=== PATIENT | female | born 1945 | race Caucasian/White ===

== ENCOUNTER 2016-11-16 15:04 | Emergency (ER) | payer MEDICARE ==
[2016-11-16] MEDS ORDERED: HYDROmorphone* 1 MG/ML 1 ML SYR IV ONE (15:29)
[2016-11-16] MEDS ORDERED: Metoclopramide IV* 5 MG/ML 2 ML VIAL IV ONE (15:29)
[2016-11-16] MEDS: NS 0.9% 1000 ML* 3,000 ML IV ONE ×2 (15:39→15:53)
[2016-11-16 16:22] LABS: Hematocrit 37 % (35-47); Hemoglobin 12.1 g/dl (12.0-16.0); Mean Corpuscular HGB Conc 33 g/dl (31-36); Mean Corpuscular Hemoglobin 33 pg (27-31); Mean Corpuscular Volume 102 fL (80-97); Mean Platelet Volume 8 um3 (7.4-10.4); Red Blood Count 3.64 10^6/ul (4.0-5.4); Red Cell Distribution Width 15 % (10.5-15); White Blood Count 7.3 10^3/ul (3.5-10.8)
[2016-11-16 16:32] LABS: ALT 6 U/L (7-52); AST 13 U/L (13-39); Albumin 3.5 g/dL (3.2-5.2); Alkaline Phosphatase 70 U/L (34-104); Amylase 20 U/L (29-103); Anion Gap 6 mmol/L (2-11); BUN/Creatinine Ratio 14.6 (8-20); Blood Urea Nitrogen 15 mg/dL (6-24); C Reactive Protein < 1.00 mg/L (< 5.00); CO2 Carbon Dioxide 26 mmol/L (22-32); Calcium 8.7 mg/dL (8.6-10.3); Chloride 105 mmol/L (101-111); EGFR African American 67.7 (>60); EGFR Non-African American 52.7 (>60); Globulin 2.5 g/dL (2-4); Glucose 81 mg/dL (70-100); Lipase < 10 U/L (11.0-82.0); Potassium 3.9 mmol/L (3.5-5.0); Sodium 137 mmol/L (133-145)
[2016-11-16] MEDS ORDERED: Iodixanol* (CONTRAST) 320 MG/ML 100 ML SDV IV ONE (16:45)
--- NOTE | 2016-11-16 18:15 | RAD ---
INDICATION: Abdominal pain, nausea, no bowel movement. Question small bowel obstruction, colitis, gallbladder pathology. History of colon carcinoma. Recent chemotherapy. COMPARISON: April 19, 2016 CT. TECHNIQUE: Multidetector CT images were obtained from the lung bases to the ischial tuberosities with 100 mL Visipaque 320 IV and oral contrast. Multiplanar reformation. REPORT: Mild bibasilar subsegmental atelectasis. Coronary artery calcifications. Normal size liver with decreased density consistent with fatty infiltration. No focal hepatic lesions or biliary dilatation. Unremarkable gallbladder. Moderately advanced atrophy of the pancreas without suspicious finding. Unremarkable spleen. Negative for CT abnormality of the upper GI or small bowel. Postsurgical change of RIGHT hemicolectomy. Negative for bowel obstruction. Residual colon is remarkable for a moderate volume of formed stool. Negative for significant rectal distention. Minimal ascites. Negative for free air or hernias. Normal adrenal glands. Symmetric nephrograms and pyelograms. Unchanged 1.7 x 1.3 cm cortical lesion at the midpole of the RIGHT kidney with peripheral calcification. Negative for hydronephrosis. Unremarkable ureters and partially distended urinary bladder. Multiple new soft tissue density implants are visualized within the abdominal fat primarily at the RIGHT anterior abdomen at the mesentery, greater omentum, and prehepatic fat. Negative for retroperitoneal lymphadenopathy. Peripheral vascular disease with infrarenal aorta to LEFT common femoral patent bypass graft as well as patent aorta to RIGHT common femoral bypass graft which follows the course of the LEFT graft to the lower anterior pelvis and extends across the midline. Physiologic partial distention of the IVC. Negative for suspicious osseous lesions. IMPRESSION: 1. Post RIGHT hemicolectomy. No evidence for bowel obstruction. 2. 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 3. Minimal ascites. 4. Fatty infiltration of the liver. No focal hepatic lesions evident. 5. Peripheral vascular disease with patent infrarenal abdominal aorta to bilateral common femoral artery bypass.
[2016-11-16 19:41] VITALS: BP 135/71
--- NOTE | 2016-11-16 20:56 | ED ---
I, Oh,Sozane, scribed for Yaniv David MD on 11/16/16 at 1525 . Abdominal Pain/Female - HPI Summary HPI Summary: This 71 y/o female presents to ED for gradually worsening diffuse abd pain since 1 week ago. Pt also reports constipation, nausea, abd bloating, and increased belching/flatulance. Negative fever/chills. Nausea is worse with food PO. PMHx is significant for colon CA s/p recent chemotherapy that was completed 3 weeks ago. She has pending f/u appointment tomorrow. Other PMHx includes SBO. Former smoker and occasional drinker. - History of Current Complaint Stated Complaint: ABD PIAN Time Seen by Provider: 11/16/16 15:11 Hx Obtained From: Patient ?: No Timing: Constant Location: Diffuse Radiates: No Allergies/Adverse Reactions: Allergies Allergy/AdvReac Type Severity Reaction Status Date / Time Adhesive Tape Allergy Rash Verified 05/26/16 10:14 PMH/Surg Hx/FS Hx/Imm Hx Endocrine/Hematology History: Reports: Hx Thyroid Disease Cardiovascular History: Reports: Hx Hypercholesterolemia, Hx Hypertension - ON MEDS, Hx Myocardial Infarction, Other Cardiovascular Problems/Disorders - 2015, AORTIC BYPASS GI History: Reports: Hx Gastroesophageal Reflux Disease, Other GI Disorders - COLON CANCER Musculoskeletal History: Reports: Hx Back Problems Sensory History: Reports: Hx Contacts or Glasses - GLASSES Denies: Hx Hearing Aid Opthamlomology History: Reports: Hx Contacts or Glasses - GLASSES - Cancer History Hx Chemotherapy: Yes - STARTING 05/27/16 - Surgical History Surgery Procedure, Year, and Place: ABDOMINAL ANEURYSM 2014. AORTIC VALVE REPLACEMENT 2015. 2016, COLON TUMOR, CMCM Hx Anesthesia Reactions: No Infectious Disease History: Denies: Traveled Outside the [place] in Last 30 Days - Family History Known Family History: Positive: Hypertension - Social History Alcohol Use: Rare Substance Use Type: Reports: None Smoking Status (MU): Former Smoker Amount Used/How Often: PACK A DAY Review of Systems Positive: Sore Throat - mild. Negative: Nasal Discharge Negative: Chest Pain Negative: Shortness Of Breath Positive: Abdominal Pain, Nausea, Other - constipation All Other Systems Reviewed And Are Negative: Yes Physical Exam - Summary Physical Exam Summary: The patient is well-nourished in no acute distress and in no acute pain. The skin is warm and skin color reflects adequate perfusion. Decreased turgor. HEENT: The head is normocephalic and atraumatic. The pupils are equal and reactive. The conjunctivae are clear and without drainage. Nares are patent and without drainage. Mouth reveals dry mucous membranes and the throat is without erythema and exudate. The external ears are intact. The ear canals are patent and without drainage. The tympanic membranes are intact. Neck is supple with full range of motion and non-tender. There are no carotid bruits. There is no neck vein distension. Respiratory: Chest is non-tender. Lungs are clear to auscultation and breath sounds are symmetrical and equal. Cardiovascular: Hear is regular rate and rhythm. There is no murmur or rub auscultated. There is no peripheral edema and pulses are symmetrical and equal. Abdomen: RUQ and transverse tenderness. Negative tenderness at lower quadrants. There are normal bowel sounds heard in all four quadrants and there is no organomegaly palpated. Musculoskeletal: There is no back pain noted. Extremities are non-tender with full range of motion. There is good capillary refill 2 seconds . There is no peripheral edema or calf tenderness elicited. Neurological: Patient is alert and oriented to person, place and time. The patient has symmetrical motor strength in all four extremities. Cranial nerves are grossly intact. Deep tendon reflexes are symmetrical and equal in all four extremities. Psychiatric: The patient is depressed. Triage Information Reviewed: Yes Vital Signs On Initial Exam: Initial Vitals Temp Pulse Resp BP Pulse Ox 97.3 F 57 16 146/71 98 11/16/16 15:18 11/16/16 15:18 11/16/16 15:18 11/16/16 15:18 11/16/16 15:18 Vital Signs Reviewed: Yes Diagnostics - Vital Signs Vital Signs Temp Pulse Resp BP Pulse Ox 11/16/16 19:35 60 12 135/71 11/16/16 19:30 58 11 135/71 96 11/16/16 19:27 58 12 149/67 97 11/16/16 19:00 57 15 97 11/16/16 18:00 55 12 98 11/16/16 17:30 51 12 131/64 96 11/16/16 17:19 53 14 149/62 98 11/16/16 17:00 52 12 144/75 95 11/16/16 16:30 51 9 141/66 99 11/16/16 16:00 57 11 123/68 96 11/16/16 15:45 18 11/16/16 15:34 57 98 11/16/16 15:33 146/71 11/16/16 15:18 97.3 F 57 16 146/71 98 - Laboratory Lab Results: Lab Results 11/16/16 11/16/16 11/16/16 Range/Units 16:08 16:08 16:08 WBC 7.3 (3.5-10.8) 10^3/ul RBC 3.64 L (4.0-5.4) 10^6/ul Hgb 12.1 (12.0-16.0) g/dl Hct 37 (35-47) % MCV 102 H (80-97) fL MCH 33 H (27-31) pg MCHC 33 (31-36) g/dl RDW 15 (10.5-15) % Plt Count 208 (150-450) 10^3/ul MPV 8 (7.4-10.4) um3 Neut % (Auto) 54.0 (38-83) % Lymph % (Auto) 34.0 (25-47) % [place] % (Auto) 7.7 (1-9) % Eos % (Auto) 3.3 (0-6) % Baso % (Auto) 1.0 (0-2) % Absolute Neuts (auto) 3.9 (1.5-7.7) 10^3/ul Absolute Lymphs (auto) 2.5 (1.0-4.8) 10^3/ul Absolute Monos (auto) 0.6 (0-0.8) 10^3/ul Absolute Eos (auto) 0.2 (0-0.6) 10^3/ul Absolute Basos (auto) 0.1 (0-0.2) 10^3/ul Absolute Nucleated RBC 0 10^3/ul Nucleated RBC % 0 Sodium 137 (133-145) mmol/L Potassium 3.9 (3.5-5.0) mmol/L Chloride 105 (101-111) mmol/L Carbon Dioxide 26 (22-32) mmol/L Anion Gap 6 (2-11) mmol/L BUN 15 (6-24) mg/dL Creatinine 1.03 H (0.51-0.95) mg/dL Est GFR ( Amer) 67.7 (>60) Est GFR (Non-Af Amer) 52.7 (>60) BUN/Creatinine Ratio 14.6 (8-20) Glucose 81 (70-100) mg/dL Lactic Acid 1.2 (0.5-2.0) mmol/L Calcium 8.7 (8.6-10.3) mg/dL Total Bilirubin 0.50 (0.2-1.0) mg/dL AST 13 (13-39) U/L ALT 6 L (7-52) U/L Alkaline Phosphatase 70 (34-104) U/L C-Reactive Protein < 1.00 (< 5.00) mg/L Total Protein 6.0 L (6.4-8.9) g/dL Albumin 3.5 (3.2-5.2) g/dL Globulin 2.5 (2-4) g/dL Albumin/Globulin Ratio 1.4 (1-3) Amylase 20 L (29-103) U/L Lipase < 10 L (11.0-82.0) U/L Result Diagrams: 11/16/16 16:08 11/16/16 16:08 Lab Statement: Any lab studies that have been ordered have been reviewed, and results considered in the medical decision making process. - CT Ab/P CT Interpretation: Positive (See Comments) - 1. Post RIGHT hemicolectomy. No evidence for bowel obstruction. 2. 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 3. Minimal ascites. 4. Fatty infiltration of the liver. No focal hepatic lesions evident. 5. Peripheral vascular disease with patent infrarenal abdominal aorta to bilateral common femoral artery bypass. CT Interpretation Completed By: Radiologist Re-Evaluation - Re-Evaluation First Eval Re-Evaluation Time: 19:13 Comment: Dr. David in room to update pt on CT Ab/P imaging results and blood work. Hard copies of imaging results and bloodwork are shared with pt and family members. Abdominal Pain Fem Course/Dx - Course Course Of Treatment: This 71 y/o female presents to ED for abd pain and nausea since a week ago. PMHx is significant for colon CA s/p surgery and chemotherapy QOW 3 weeks ago. Pt states that her medications failed to alleviate her nausea and abd discomfort. Bloodwork was wnl except creatinine of 1.03. 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 Pt was discharged with outpatient f/u with Dr. Yao as scheduled tomorrow. - Diagnoses Differential Diagnosis: Positive: Appendicitis, Bowel Obstruction, Other - metastatic colon cancer Provider Diagnoses: Metastatic cancer - Provider Notifications Discussed Care Of Patient With: Dr. Allison (Radiologist) at 1838 PM Discharge - Discharge Plan Condition: Stable Disposition: HOME Patient Education Materials: Abdominal Pain (ED) Referrals: Konrad Grimaldo MD [Primary Care Provider] - 2 Days Vivien Yao MD [Medical Doctor] - 11/17/16 The documentation as recorded by the Chaka ryder Soohyun accurately reflects the service I personally performed and the decisions made by , Yaniv David MD.
[2016-11-17 12:17] LABS: Carcinoembryonic Antigen 6.4 ng/mL (0.1-5.0)
== END 2016-11-16 19:35 | disposition home or self-care (01) ==
LOC: ED 15:04
DX: R10.9 Unspecified abdominal pain (principal); J02.9 Acute pharyngitis, unspecified; Z87.891 Personal history of nicotine dependence; C18.9 Malignant neoplasm of colon, unspecified
CPT/HCPCS: 36415; 74177; 80053; 82150; 82378; 83605; 83690; 85025; 86140; 99284; J1170; Q9967

== ENCOUNTER 2016-11-21 19:51 | Inpatient (IN) | payer MEDICARE ==
[2016-11-21] MEDS ORDERED: NS 0.9% 1000 ML* 1,000 ML IV ONE (20:28)
[2016-11-21] MEDS ORDERED: Morphine INJ* 4 MG/ML 1 ML SYRINGE IV ONE ×2 (20:28→23:18)
[2016-11-21] MEDS ORDERED: Ondansetron INJ* 2 MG/ML VIAL IV ONE (20:28)
[2016-11-21 20:48] LABS: Hematocrit 39 % (35-47); Hemoglobin 12.5 g/dl (12.0-16.0); Mean Corpuscular HGB Conc 33 g/dl (31-36); Mean Corpuscular Hemoglobin 33 pg (27-31); Mean Corpuscular Volume 101 fL (80-97); Mean Platelet Volume 7 um3 (7.4-10.4); Red Blood Count 3.83 10^6/ul (4.0-5.4); Red Cell Distribution Width 15 % (10.5-15); White Blood Count 8.5 10^3/ul (3.5-10.8)
--- NOTE | 2016-11-21 21:07 | RAD ---
HISTORY: Abdominal pain COMPARISONS: PET CT dated November 18, 2016 VIEWS: Frontal views of the abdomen. FINDINGS: BOWEL: There is a nonspecific bowel gas pattern, with nondilated small bowel gas noted. There is post surgical change to the upper abdomen. Oral contrast is noted within the colon CALCULI: Surgical clips are noted in the abdomen. BONES AND SOFT TISSUES: Degenerative changes are noted along the spine OTHER FINDINGS: The lung bases are clear. There is no subphrenic gas. IMPRESSION: NONSPECIFIC BOWEL GAS PATTERN. ORAL CONTRAST IS NOTED WITHIN THE COLON
[2016-11-21 21:08] LABS: Albumin 3.8 g/dL (3.2-5.2); BUN/Creatinine Ratio 17.5 (8-20); Calcium 9.2 mg/dL (8.6-10.3); EGFR African American 72.6 (>60); EGFR Non-African American 56.5 (>60); Potassium 3.8 mmol/L (3.5-5.0); Total Bilirubin 0.6 mg/dL (0.2-1.0); Total Protein 6.8 g/dL (6.4-8.9)
--- NOTE | 2016-11-21 21:09 | RAD ---
HISTORY: Abdominal pain COMPARISONS: Chest x-ray dated May 26, 2016 VIEWS:1: Single frontal portable view of the chest at 8:40 PM FINDINGS: LINES AND TUBES: A left-sided chest port is noted from a subclavian approach with the tip overlying the superior vena cava. CARDIOMEDIASTINAL SILHOUETTE: The cardiomediastinal silhouette is normal for portable technique. PLEURA: The costophrenic angles are sharp. No pleural abnormalities are noted. LUNG PARENCHYMA: The lung volumes are low. The lungs are clear accounting for the phase of respiration. ABDOMEN: The upper abdomen is clear. There is no subphrenic gas. BONES AND SOFT TISSUES: No bone or soft tissue abnormalities are noted. IMPRESSION: LOW LUNG VOLUMES. NO ACTIVE CARDIOPULMONARY DISEASE.
[2016-11-21] MEDS ORDERED: Iodixanol* (CONTRAST) 320 MG/ML 100 ML SDV IV ONE (22:36)
--- NOTE | 2016-11-22 00:49 | ED ---
Maude Cotnreras Rebecca, scribed for LanaannelSingh on 11/21/16 at 2011 . Shortness of Breath - HPI Summary HPI Summary: Pt is a 71 y/o F BIBA who presents to ED c/o SOB. SOB began suddenly today at 1100 during BM. Sx characterized as mild dyspnea at exertion and has been constant since onset. Sx aggravated by movement, alleviated by nothing. Additionally c/o severe epigastric abdominal pain, currently ranked 8/10. Pain is worse on the R side and also aggravated by movement. Denies fever, edema, chest pain. Hx colorectal CA. Last chemotherapy treatment 4 weeks ago, was intended to be the last treatment. Recent evaluation by oncologist resulted in "rediagnosis" with a biopsy scheduled for Thursday (4 days). - History of Current Complaint Chief Complaint: EDShortnessOfBreath Time Seen by Provider: 11/21/16 20:09 Hx Obtained From: Patient Onset/Duration: Sudden Onset Timing: Intermittent Episodes Lasting: Current Severity: Mild Dyspnea At: Exertion Aggrevating Factors: Movement Alleviating Factors: Nothing - Allergy/Home Medications Allergies/Adverse Reactions: Allergies Allergy/AdvReac Type Severity Reaction Status Date / Time Adhesive Tape Allergy Rash Verified 05/26/16 10:14 Home Medications: Home Medications oxyCODONE TAB* [Roxycodone TAB 5 mg*] 10 mg PO Q4H PRN MDD 6 tablets 11/22/16 [ History Confirmed 11/22/16] PMH/Surg Hx/FS Hx/Imm Hx Endocrine/Hematology History: Reports: Hx Thyroid Disease Cardiovascular History: Reports: Hx Hypercholesterolemia, Hx Hypertension - ON MEDS, Hx Myocardial Infarction, Other Cardiovascular Problems/Disorders - 2015, AORTIC BYPASS GI History: Reports: Hx Gastroesophageal Reflux Disease, Other GI Disorders - COLON CANCER Musculoskeletal History: Reports: Hx Back Problems Sensory History: Reports: Hx Contacts or Glasses - GLASSES Denies: Hx Hearing Aid Opthamlomology History: Reports: Hx Contacts or Glasses - GLASSES - Cancer History Cancer Type, Location and Year: colon Hx Chemotherapy: Yes - STARTING 05/27/16 - Surgical History Surgery Procedure, Year, and Place: ABDOMINAL ANEURYSM 2015. AORTIC VALVE REPLACEMENT 2015. 2016, COLON TUMOR, CMCM Hx Anesthesia Reactions: No - Family History Known Family History: Positive: Hypertension - Social History Alcohol Use: Rare Substance Use Type: Reports: None Smoking Status (MU): Former Smoker Amount Used/How Often: PACK A DAY Review of Systems Negative: Fever Negative: Chest Pain Positive: Shortness Of Breath - dyspnea at exertion Positive: Abdominal Pain - severe epigastric Negative: Edema All Other Systems Reviewed And Are Negative: Yes Physical Exam Triage Information Reviewed: Yes Vital Signs Reviewed: Yes Appearance: Positive: Well-Appearing, No Pain Distress Skin: Positive: Warm, Skin Color Reflects Adequate Perfusion, Dry Head/Face: Positive: Normal Head/Face Inspection Eyes: Positive: EOMI, NUNU ENT: Positive: Normal ENT inspection Neck: Positive: Supple, Nontender Respiratory/Lung Sounds: Positive: Clear to Auscultation, Decreased Breath Sounds - Diminished breath sounds on the R side Cardiovascular: Positive: RRR, Pulses are Symmetrical in both Upper and Lower Extremities Abdomen Description: Positive: Soft. Negative: Nontender - RUQ and epigastric tenderness Bowel Sounds: Positive: Present Musculoskeletal: Positive: Normal, Strength/ROM Intact Neurological: Positive: Normal, Sensory/Motor Intact, Alert, Oriented to Person Place, Time Diagnostics - Laboratory Result Diagrams: 11/21/16 20:40 11/21/16 20:40 Lab Statement: Any lab studies that have been ordered have been reviewed, and results considered in the medical decision making process. - Radiology Abd XR/KUB Radiology Interpretation Completed By: Radiologist - NONSPECIFIC BOWEL GAS PATTERN. ORAL CONTRAST IS NOTED WITHIN THE COLON CXR Radiology Interpretation Completed By: Radiologist - CT CTA Chest CT Interpretation Completed By: Radiologist - EKG 2028 Cardiac Rate: NL - 67 bpm EKG Rhythm: Sinus Rhythm ST Segment: Non-Specific - Non-Specific ST changes EKG Interpretation: QS in the inferior leads Re-Evaluation - Re-Evaluation First Eval Re-Evaluation Time: 00:30 Change: Unchanged Comment: Pt continues to complain of abdominal pain. Course/Dx - Course Assessment/Plan: Pt comes to ED with abdominal pain and SOB. Labs, CXR and Abd XR were performed. Showed elevated D-Dimer. CTA of chest was done with no acute findings. Pt still c/o abdominal pain, so she will be admitted for observation with a Dx of intractable abdominal pain. - Diagnoses Provider Diagnoses: Intractable abdominal pain - Physician Notifications Discussed Care of Patient With: Dr. Mario, hospitalist, who accepts pt for admission. Time Discussed With Above Provider: 00:37 Discharge - Discharge Plan Condition: Good Disposition: ADMITTED TO [facility] Referrals: Konrad Grimaldo MD [Primary Care Provider] - The documentation as recorded by the Maude ryder Rebecca accurately reflects the service I personally performed and the decisions made by , Singh Lind.
[2016-11-22] MEDS ORDERED: tiZANidine TAB* 2 MG PO PRN (01:27)
[2016-11-22] MEDS ORDERED: NALOXEGOL OXALATE 25 MG PO PRN (01:27)
[2016-11-22] MEDS ORDERED: oxyCODONE TAB* 5 MG TAB PO PRN (01:27)
[2016-11-22] MEDS ORDERED: Docusate CAP* 100 MG PO PRN (01:29)
[2016-11-22] MEDS ORDERED: Morphine TAB Extended Release (*) 15 MG TAB.ER PO SCH (02:00)
[2016-11-22] MEDS: Morphine INJ* 2 MG/ML 1 ML SYRINGE IV PRN ×4 (02:08→20:34)
[2016-11-22] MEDS: Enoxaparin(*) 40 MG/0.4 ML SYR SUBCUT SCH (02:51)
[2016-11-22] MEDS: Levothyroxine TAB* 125 MCG TAB PO SCH (05:33)
--- NOTE | 2016-11-22 08:04 | PN ---
Progress Note - Progress Note SOAP: Subjective: pt well known to me. newly discovered likely omental implants. not visible on abd US so plan for CT guided bx on Thursday. last Thursday I increased her oxycodone to 20 mg po q4 hrs. She has been taking this more like every 3 hours just to keep the pain manageable. wearing an abdominal binder because it hurts to move. +constipation. yesterday evening was straining to have a bowel movement and the pain became unbearable. she developed SOB, more from pain than anything. She went to the ER via ambulance. CTA prelim read negative. IV morphine helping but still very painful if she moves at all. Objective: Vital Signs Temp Pulse Resp BP Pulse Ox 97.8 F 65 18 134/69 98 11/22/16 03:09 11/22/16 03:09 11/22/16 04:49 11/22/16 03:09 11/22/16 03:09 sitting up, uncomfortable appearing perr eomi op dry CTA bl distended, tender, RUQ mostly, +bs no le edema A+O x 3, nonfocal neurological exam skin intact port site intact (not accessed) Laboratory Results - last 24 hr 11/21/16 11/21/16 11/21/16 20:40 20:40 20:40 WBC 8.5 RBC 3.83 L Hgb 12.5 Hct 39 MCV 101 H MCH 33 H MCHC 33 RDW 15 Plt Count 285 MPV 7 L Neut % (Auto) 68.3 Lymph % (Auto) 21.4 L [place] % (Auto) 6.8 Eos % (Auto) 2.4 Baso % (Auto) 1.1 Absolute Neuts (auto) 5.8 Absolute Lymphs (auto) 1.8 Absolute Monos (auto) 0.6 Absolute Eos (auto) 0.2 Absolute Basos (auto) 0.1 Absolute Nucleated RBC 0.01 Nucleated RBC % 0.1 INR (Anticoag Therapy) 0.92 APTT 25.0 L D-Dimer, Quantitative > 1050 H Sodium 136 Potassium 3.8 Chloride 103 Carbon Dioxide 24 Anion Gap 9 BUN 17 Creatinine 0.97 H Est GFR ( Amer) 72.6 Est GFR (Non-Af Amer) 56.5 BUN/Creatinine Ratio 17.5 Glucose 86 Lactic Acid Calcium 9.2 Total Bilirubin 0.60 AST 17 ALT 7 Alkaline Phosphatase 83 Troponin I 0.00 Total Protein 6.8 Albumin 3.8 Globulin 3.0 Albumin/Globulin Ratio 1.3 Lipase 18 11/21/16 20:40 WBC RBC Hgb Hct MCV MCH MCHC RDW Plt Count MPV Neut % (Auto) Lymph % (Auto) [place] % (Auto) Eos % (Auto) Baso % (Auto) Absolute Neuts (auto) Absolute Lymphs (auto) Absolute Monos (auto) Absolute Eos (auto) Absolute Basos (auto) Absolute Nucleated RBC Nucleated RBC % INR (Anticoag Therapy) APTT D-Dimer, Quantitative Sodium Potassium Chloride Carbon Dioxide Anion Gap BUN Creatinine Est GFR ( Amer) Est GFR (Non-Af Amer) BUN/Creatinine Ratio Glucose Lactic Acid 1.4 Calcium Total Bilirubin AST ALT Alkaline Phosphatase Troponin I Total Protein Albumin Globulin Albumin/Globulin Ratio Lipase Atenolol (Tenormin Tab*) 25 mg PO BEDTIME ON LICENSE OF [facility] Atorvastatin Calcium (Lipitor*) 40 mg PO 2100 ON LICENSE OF [facility] Docusate Sodium (Colace Cap*) 100 mg PO BID PRN PRN Reason: CONSTIPATION Enoxaparin Sodium (Lovenox(*)) 40 mg SUBCUT Q24H ON LICENSE OF [facility] Last Admin: 11/22/16 02:51 Dose: 40 mg Fentanyl (Duragesic Patch 50 Mcg/Hr*) 50 mcg TRANSDERM Q72H ON LICENSE OF [facility] Levothyroxine Sodium (Synthroid Tab*) 125 mcg PO 0600 ON LICENSE OF [facility] Last Admin: 11/22/16 05:33 Dose: 125 mcg Morphine Sulfate (Morphine Inj (Syringe)*) 4 mg IV Q3H PRN PRN Reason: PAIN Last Admin: 11/22/16 02:08 Dose: 4 mg Non-Formulary Medication (Naloxegol Oxalate [Movantik]) 25 mg PO DAILY PRN PRN Reason: CONSTIPATION Omeprazole (Prilosec Cap*) 20 mg PO DAILY PRN PRN Reason: INDIGESTION Ondansetron HCl (Zofran Inj*) 4 mg IV Q6H PRN PRN Reason: NAUSEA Oxybutynin Chloride (Ditropan Xl Tab*) 15 mg PO DAILY ON LICENSE OF [facility] Oxycodone HCl (Roxycodone Tab*) 20 mg PO Q4H PRN PRN Reason: PAIN Tizanidine HCl (Zanaflex Tab*) 4 mg PO BID PRN PRN Reason: muscle relax Assessment: 71 yo F w stage III CRC with likely recent recurrence, awaiting confirmation biopsy, presenting with acute exacerbation of abdominal pain. She has omental caking and slow bowel movements and is likely having pain from this. She has been taking at least 20 mg of oxycodone every 3-4 hours (relatively opiate naive prior to this) for the last 2 weeks and so I will start a fentanyl patch at 50 mcg. I will also place her on a low residue diet and an aggressive bowel regimen. If she is still here on Thursday I will see if we can move her biopsy up. Plan: -start fentanyl 50 mcg q72 hrs -cont PRN IV morphine -cont oxycodone 20 mg po q4 hrs prn -BRAT diet -bowel regimen lovenox DVT prophylaxis DNR
[2016-11-22] MEDS: NALOXEGOL OXALATE 25 MG PO SCH (08:10)
[2016-11-22] MEDS: Lidocaine 2.5%/Prilocain 2.5%* 5 GM TUBE TOPICAL PRN (08:21)
[2016-11-22] MEDS: fentaNYL PATCH 50 MCG/HR TRANSDERM SCH (08:23)
[2016-11-22] MEDS: Oxybutynin XL TAB* 5 MG PO SCH (08:28)
[2016-11-22] MEDS ORDERED: Aspirin EC Low Dose* 81 MG TAB.EC PO SCH (09:00)
--- NOTE | 2016-11-22 09:11 | RAD ---
INDICATION: Shortness of breath and nausea in a patient with metastatic colorectal carcinoma. COMPARISON: Most recent comparison CT of the chest is dated April 19, 2016 TECHNIQUE: Axial source images were acquired following the administration of 85 mL Visipaque [address] angiographic technique. Coronal and sagittal reconstructed images were constructed and reviewed. FINDINGS: There there are no filling defects in the pulmonary arteries to indicate acute pulmonary embolic disease. In the anterolateral aspect of the right upper lobe there is a 2 mm subpleural nodule. The lungs exhibit very mild groundglass opacification diffusely. There is pleural-based linear density at the right lung base. There is a small right pleural effusion. The pneumonia seen on the April 19, 2016 CT of the chest has resolved. The heart is normal in size. There is no evidence of pericardial effusion. There is no evidence of aortic aneurysm or dissection. There is a left subclavian vein Mediport that appears to have retracted slightly since its previous instillation with the tip now terminating at the superior vena cava at the same level as the junction with the left brachiocephalic vein. There is no mediastinal, hilar, or axillary lymphadenopathy. Degenerative changes of the thoracic spine include loss of intervertebral disc height at multiple levels. There are no sinister bone lesions. There is a small amount of perihepatic fluid. IMPRESSION: 1. No CT of evidence of pulmonary embolism. 2. Interval appearance of small right upper and middle lobe pulmonary nodules that do not exceed 4 mm. Infectious/inflammatory nodules are possible, but it is clinical setting metastatic foci must be considered.
[2016-11-22] MEDS: Docusate CAP* 100 MG PO SCH ×2 (09:51→20:33)
[2016-11-22] MEDS: Ondansetron INJ* 2 MG/ML VIAL IV PRN ×2 (14:36→20:34)
[2016-11-22] MEDS: Simethicone CHEW TAB* 80 MG PO PRN ×2 (14:36→19:17)
[2016-11-22] MEDS: Omeprazole CAP* 20 MG PO PRN (14:36)
[2016-11-22] MEDS: fentaNYL Patch Check Q Shift 1 NOTE SCH (18:56)
[2016-11-22] MEDS: Atenolol TAB* 25 MG PO SCH (20:33)
[2016-11-22] MEDS: Atorvastatin* 40 MG TAB PO SCH (20:33)
--- NOTE | 2016-11-22 22:30 | HP ---
CC: Dr. Grimaldo; Dr. Yao ADMISSION HISTORY AND PHYSICAL: DATE OF ADMISSION: 11/22/16 CHIEF COMPLAINT: Abdominal pain. HISTORY OF PRESENT ILLNESS: Ms. Gordillo is a 71-year-old woman with metastatic colon cancer, who reports 4 weeks of epigastric and right upper quadrant pain that has been investigated and attributed to progression of colon cancer. The patient reports that in the last 5 days, the pain has become more severe and intractable. It is worse in the right upper quadrant but radiates along the way across in the band to the left upper quadrant. She was seen about this in the emergency department about 5 days ago and also has seen Dr. Yoa about this. She reports she was started on oxycodone 10 mg as needed for pain, but this has not been helpful with pain. She has been constipated in the last few weeks, but has had a bowel movement the morning before admission. The colon cancer was recently diagnosed 6 months ago and led to her colectomy. She has been on chemotherapy, but last chemo dose was 4 weeks ago and she was told that she has an aggressive recurrence. There is a biopsy planned in 3 days , unclear to me what they biopsy, potentially a liver lesion. She had abdominal and pelvis CT on November 16 that showed omental and mesenteric metastatic disease as well as fatty infiltration of the liver with minimal ascites. PAST MEDICAL HISTORY: Includes hypothyroidism, coronary artery disease versus takotsubo syndrome. She reports a history of OR at age 27 when under emotional stress. She has hypertension, peripheral vascular disease, history of aortic aneurysm and has chronic low back pain. PAST SURGICAL HISTORY: Total abdominal hysterectomy, aortobifem with AAA repair in January 2015 up in [place] at [facility]. MEDICATIONS ON ADMISSION: 1. Aspirin 81 mg p.o. daily. 2. Atenolol 25 mg p.o. q.p.m. 3. Atorvastatin 40 mg p.o. q.p.m. 4. Nexium 40 mg p.o. daily. 5. Levothyroxine 125 mcg p.o. daily. 6. Movantik 25 mg p.o. daily. 7. Ondansetron as needed for nausea. 8. Oxybutynin 15 mg p.o. daily. 9. Tizanidine 4 mg p.o. b.i.d. p.r.n. 10. Oxycodone 10 mg p.o. q.4 hours p.r.n. ALLERGIES: ADHESIVE TAPE. FAMILY HISTORY: Notable for father who of myocardial infarction. Mother of a gynecological cancer. 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 She is . She has 2 children. Her healthcare proxy is her son Alex. She quit tobacco in the distant past, she does not remember when. She drinks wine occasionally. No recreational drugs. REVIEW OF SYSTEMS: The patient reports decreased appetite. She denies any fevers or weight loss. The patient denies any chest pain or palpitations. The patient denies any cough or shortness of breath. The patient reports nausea, but no diarrhea. Remainder of a 14-point review of systems is negative other than that mentioned in the HPI. PHYSICAL EXAMINATION GENERAL: She is alert, no acute distress. VITAL SIGNS: Temperature is 36.4, pulse 66, respirations 20, blood pressure is 141/71, oxygen saturation is 93%. HEENT: Head is normocephalic, atraumatic. Sclerae anicteric. Pupils are equal , round, and reactive to light and accommodation. Oropharynx is moist. No lesions. NECK: No JVD. No carotid bruit. No thyromegaly. LUNGS: Clear to auscultation and percussion bilaterally. HEART: Regular rate and rhythm without murmurs or gallops. ABDOMEN: Tender in the right upper quadrant and left upper quadrant to lesser extend. There are no masses palpated. There is positive but rare bowel sounds in all 4 quadrants. EXTREMITIES: No peripheral edema. Dorsalis pedis pulses are absent. Posterior tibial pulses are absent bilaterally. NEUROLOGIC: Cranial nerves II through XII are intact. Motor strength is 5/5 throughout. Deep tendon reflexes are symmetric. LABORATORY DATA: Sodium 136, potassium 3.8, chloride 103, bicarb 24, BUN 17, creatinine 0.97, glucose 86, calcium 9.2. Lactic acid 1.4. Troponin 0.00. Lipase 18. INR 0.92, PTT 25. D-dimer is greater than 1000. White count 8.5, hemoglobin 12.5, hematocrit 39%, platelets are 285. EKG, normal sinus rhythm, normal axis, Q waves in leads V1 through V3 and lead III are new compared with 2015. Chest x-ray, no infiltrate or effusion. Abdominal x-ray negative for obstruction. Chest CT shows no pulmonary emboli or masses. ASSESSMENT AND PLAN: A 71-old woman presenting with intractable abdominal pain after 2 doses of pain medicine in the emergency department. She was failed to have remission and she will be admitted to the hospital for pain management. She also is at risk of dehydration given her nausea and abdominal pain. She will be started on oral MS Contin in addition to the oxycodone that she was already started on last week. She will be continued on bowel regimen of Movantik and we can add stool softener as well to prevent constipation. She will be admitted by the hospitalist, but she can be seen by Oncology tomorrow and I will discuss the case with Dr. Yao or her coverage about any further treatment or biopsy planned. The patient is do not resuscitate, do not intubate. This was confirmed with the patient and her family in a room and MOLST form was filled out and signed today. She has a high risk of DVT given her active cancer and her immobility, so she will have subcutaneous Lovenox while she is here in the hospital. For her history of myocardial infarction and hypertension, she will be continued on her usual regimen of beta-rahul, aspirin, and statin. [id number]/[facility] #: [id number] MTDD
[2016-11-23] MEDS: oxyCODONE TAB* 5 MG TAB PO PRN ×3 (03:20→15:04)
[2016-11-23] MEDS: Enoxaparin(*) 40 MG/0.4 ML SYR SUBCUT SCH (03:22)
[2016-11-23] MEDS: Levothyroxine TAB* 125 MCG TAB PO SCH (05:21)
[2016-11-23 05:41] LABS: Hematocrit 35 % (35-47); Hemoglobin 11.7 g/dl (12.0-16.0); Mean Corpuscular HGB Conc 33 g/dl (31-36); Mean Corpuscular Hemoglobin 34 pg (27-31); Mean Corpuscular Volume 102 fL (80-97); Mean Platelet Volume 7 um3 (7.4-10.4); Red Blood Count 3.47 10^6/ul (4.0-5.4); Red Cell Distribution Width 15 % (10.5-15); White Blood Count 5.9 10^3/ul (3.5-10.8)
[2016-11-23 06:01] LABS: BUN/Creatinine Ratio 14.3 (8-20); Potassium 3.9 mmol/L (3.5-5.0)
[2016-11-23 06:02] LABS: Albumin 3.6 g/dL (3.2-5.2); EGFR African American 78.1 (>60); EGFR Non-African American 60.8 (>60); Globulin 2.9 g/dL (2-4); Magnesium 2.4 mg/dL (1.9-2.7); Total Bilirubin 0.5 mg/dL (0.2-1.0); Total Protein 6.5 g/dL (6.4-8.9)
[2016-11-23] MEDS: fentaNYL Patch Check Q Shift 1 NOTE SCH ×2 (07:09→19:03)
[2016-11-23] MEDS: Docusate CAP* 100 MG PO SCH ×2 (08:55→20:16)
[2016-11-23] MEDS: Oxybutynin XL TAB* 5 MG PO SCH (08:55)
[2016-11-23] MEDS: NALOXEGOL OXALATE 25 MG PO SCH (08:57)
--- NOTE | 2016-11-23 14:57 | PN ---
Subjective Date of Service: 11/23/16 Interval History: HOSPITALIST PROGRESS NOTE Patient seen and examined at bedside. Abdominal pain is still present but less intense. She feels low residue diet is worsening her symptoms. C/o nausea, no vomiting, and passing a lot of gas. Family History: Unchanged from Admission Social History: Unchanged from Admission Past Medical History: Unchanged from Admission Objective Active Medications: Atenolol (Tenormin Tab*) 25 mg PO BEDTIME [facility] Last Admin: 11/22/16 20:33 Dose: 25 mg Atorvastatin Calcium (Lipitor*) 40 mg PO 2100 [facility] Last Admin: 11/22/16 20:33 Dose: 40 mg Docusate Sodium (Colace Cap*) 100 mg PO BID [facility] Last Admin: 11/23/16 08:55 Dose: 100 mg Enoxaparin Sodium (Lovenox(*)) 40 mg SUBCUT Q24H [facility] Last Admin: 11/23/16 03:22 Dose: 40 mg Fentanyl (Duragesic Patch 50 Mcg/Hr*) 50 mcg TRANSDERM Q72H [facility] Last Admin: 11/22/16 08:23 Dose: 50 mcg Heparin Sodium (Porcine) (Heparin Flush Port (Ivad)) 5 ml FLUSH DAILY [facility] PRN Reason: Protocol Last Admin: 11/23/16 08:57 Dose: 5 ml Levothyroxine Sodium (Synthroid Tab*) 125 mcg PO 0600 [facility] Last Admin: 11/23/16 05:21 Dose: 125 mcg Lidocaine/Prilocaine (Emla 5 Gm*) 1 applic TOPICAL UC ONCE PRN PRN Reason: pain Last Admin: 11/22/16 08:21 Dose: 1 applic Morphine Sulfate (Morphine Inj (Syringe)*) 4 mg IV Q3H PRN PRN Reason: PAIN Last Admin: 11/22/16 20:34 Dose: 4 mg Pto:Naloxegol Oxalate [Movantik] 25 Mg 25 mg PO DAILY [facility] Last Admin: 11/23/16 08:57 Dose: 25 mg Omeprazole (Prilosec Cap*) 20 mg PO DAILY PRN PRN Reason: INDIGESTION Last Admin: 11/22/16 14:36 Dose: 20 mg Ondansetron HCl (Zofran Inj*) 4 mg IV Q6H PRN PRN Reason: NAUSEA Last Admin: 11/22/16 20:34 Dose: 4 mg Oxybutynin Chloride (Ditropan Xl Tab*) 15 mg PO DAILY [facility] Last Admin: 11/23/16 08:55 Dose: 15 mg Oxycodone HCl (Roxycodone Tab*) 20 mg PO Q4H PRN PRN Reason: PAIN Last Admin: 11/23/16 09:11 Dose: 10 mg Pharmacy Profile Note (Fentanyl Patch Check Q Shift) 1 note N/A 0700,1900 [facility] Last Admin: 11/23/16 07:09 Dose: 1 note Simethicone (Mylicon*) 80 mg PO Q4H PRN PRN Reason: GAS Last Admin: 11/22/16 19:17 Dose: 80 mg Tizanidine HCl (Zanaflex Tab*) 4 mg PO BID PRN PRN Reason: muscle relax Vital Signs 11/23/16 12:19 Temperature 97.5 F Pulse Rate 54 Respiratory 16 Rate Blood Pressure 129/66 (mmHg) O2 Sat by Pulse 98 Oximetry Oxygen Devices in Use Now: None Appearance: Elderly lady sitting up in a chair in [facility]. Eyes: No Scleral Icterus Ears/Nose/Mouth/Throat: Mucous Membranes Moist Neck: Trachea Midline Respiratory: Symmetrical Chest Expansion and Respiratory Effort, Clear to Auscultation Cardiovascular: RRR - Normal S1 and S2 Neurological: Alert and Oriented x 3, NL Muscle Strength and Tone Lines/Tubes/Other Access: Clean, Dry and Intact Peripheral IV Nutrition: Taking PO's Result Diagrams: 11/23/16 05:22 11/23/16 05:22 Assess/Plan/Problems-Billing Assessment: Mrs. Gordillo is a 71yo F with PMH of hypothyroidism, CAD vs Takotsubo, HTN, PVD s/ p AAA repair, metastatic colon CA who presented to ED with c/o abdominal pain, found to have omental caking. - Patient Problems (1) Abdominal pain Comment: - Likely secondary to metastatic disease. - CT showed omental caking. - Continue Fentanyl patch, Morphine and Oxycodone PRN. - Will change diet to soft as tolerated. - Plan for biopsy this coming week. (2) DVT prophylaxis Comment: - Lovenox. Status and Disposition: Inpatient.
[2016-11-23] MEDS: Morphine INJ* 2 MG/ML 1 ML SYRINGE IV PRN (17:29)
[2016-11-23] MEDS: Simethicone CHEW TAB* 80 MG PO PRN (17:42)
[2016-11-23] MEDS: Atenolol TAB* 25 MG PO SCH (20:16)
[2016-11-23] MEDS: Atorvastatin* 40 MG TAB PO SCH (20:16)
[2016-11-24] MEDS: Enoxaparin(*) 40 MG/0.4 ML SYR SUBCUT SCH (02:46)
[2016-11-24] MEDS: Morphine INJ* 2 MG/ML 1 ML SYRINGE IV PRN (02:52)
[2016-11-24] MEDS: Levothyroxine TAB* 125 MCG TAB PO SCH (05:52)
[2016-11-24] MEDS: NALOXEGOL OXALATE 25 MG PO SCH ×2 (05:56→09:52)
[2016-11-24] MEDS: fentaNYL Patch Check Q Shift 1 NOTE SCH ×2 (07:28→19:11)
[2016-11-24] MEDS ORDERED: HYDROmorphone* 2 MG/ML 1 ML SYR IV SLOW PU PRN (08:26)
--- NOTE | 2016-11-24 08:37 | PN ---
Progress Note - Progress Note SOAP: Subjective: feels itchy. not sure if it is the morphine or the fentanyl. no BM since morning of admission, which was small and painful. pain under better control but still not ideal. near constant nausea (afraid to eat). Objective: Vital Signs Temp Pulse Resp BP Pulse Ox 97.3 F 63 16 135/80 96 11/24/16 07:34 11/24/16 07:34 11/24/16 07:34 11/24/16 07:34 11/24/16 07:34 sitting in bed, uncomfortable but in NAD perr eomi op dry CTA bl distended, tender throughout, decreased bowel sounds no le edema A+O x 3, nonfocal neurological exam Atenolol (Tenormin Tab*) 25 mg PO BEDTIME [facility] Last Admin: 11/23/16 20:16 Dose: 25 mg Atorvastatin Calcium (Lipitor*) 40 mg PO 2100 [facility] Last Admin: 11/23/16 20:16 Dose: 40 mg Docusate Sodium (Colace Cap*) 100 mg PO BID [facility] Last Admin: 11/23/16 20:16 Dose: 100 mg Enoxaparin Sodium (Lovenox(*)) 40 mg SUBCUT Q24H [facility] Last Admin: 11/24/16 02:46 Dose: Not Given Fentanyl (Duragesic Patch 50 Mcg/Hr*) 50 mcg TRANSDERM Q72H [facility] Last Admin: 11/22/16 08:23 Dose: 50 mcg Heparin Sodium (Porcine) (Heparin Flush Port (Ivad)) 5 ml FLUSH DAILY [facility] PRN Reason: Protocol Last Admin: 11/23/16 08:57 Dose: 5 ml Hydromorphone HCl (Dilaudid Iv*) 1 mg IV SLOW PU Q4H PRN PRN Reason: PAIN Levothyroxine Sodium (Synthroid Tab*) 125 mcg PO 0600 [facility] Last Admin: 11/24/16 05:52 Dose: 125 mcg Lidocaine/Prilocaine (Emla 5 Gm*) 1 applic TOPICAL UC ONCE PRN PRN Reason: pain Last Admin: 11/22/16 08:21 Dose: 1 applic Pto:Naloxegol Oxalate [Movantik] 25 Mg 25 mg PO 0600 [facility] Last Admin: 11/24/16 05:56 Dose: Not Given Omeprazole (Prilosec Cap*) 20 mg PO DAILY PRN PRN Reason: INDIGESTION Last Admin: 11/22/16 14:36 Dose: 20 mg Ondansetron HCl (Zofran Inj*) 4 mg IV Q6H PRN PRN Reason: NAUSEA Last Admin: 11/22/16 20:34 Dose: 4 mg Ondansetron HCl (Zofran Odt Tab*) 8 mg PO Q8H PRN PRN Reason: NAUSEA/VOMITING Oxybutynin Chloride (Ditropan Xl Tab*) 15 mg PO DAILY [facility] Last Admin: 11/23/16 08:55 Dose: 15 mg Oxycodone HCl (Roxycodone Tab*) 20 mg PO Q4H PRN PRN Reason: PAIN Last Admin: 11/23/16 15:04 Dose: 20 mg Pharmacy Profile Note (Fentanyl Patch Check Q Shift) 1 note N/A 0700,1900 [facility] Last Admin: 11/24/16 07:28 Dose: 1 note Scopolamine (Transderm-Scop 1.5 Mg Patch*) 1 patch TRANSDERM Q72H [facility] Simethicone (Mylicon*) 80 mg PO Q4H PRN PRN Reason: GAS Last Admin: 11/23/16 17:42 Dose: 80 mg Tizanidine HCl (Zanaflex Tab*) 4 mg PO BID PRN PRN Reason: muscle relax Assessment: 71 yo F w stage III CRC now with suspicious recurrence, with omental caking on imaging. Plan: -stop morphine, try dilaudid. if itching continues will stop fentanyl patch and start MS Contin instead -add nausea regimen (scop patch and PRN zofran) -encouraged to take bowel regimen -try to move up biopsy to today
[2016-11-24] MEDS: Docusate CAP* 100 MG PO SCH ×2 (09:48→21:35)
[2016-11-24] MEDS: Oxybutynin XL TAB* 5 MG PO SCH (10:00)
[2016-11-24] MEDS: Scopolamine 1.5 mg* PATCH TRANSDERM SCH (10:34)
[2016-11-24] MEDS ORDERED: fentaNYL* 50 MCG/ML 2 ML VIAL (100 MCG VIAL) ONE (13:13)
--- NOTE | 2016-11-24 15:17 | RAD ---
CPT II Codes: 6100F INDICATION: Small FDG avid focus at the umbilical level midline abdominal wall corresponding to the site of the patient's surgical incision. History of colon cancer. COMPARISON: PET/CT dated November 18, 2016. The benefits and risks of the procedure explained to the patient. The patient consented to the exam. The patient was brought to the CT suite and positioned in the supine position. A time out was preformed with the technologist and nursing staff. The patient was prepped and draped in the usual sterile fashion. The patient was given intravenous intravenous fentanyl and local anesthesia with 1% lidocaine. Using CT imaging and correlating to the prior PET/CT the midline abdominal soft tissue that appeared to be exhibiting FDG avid dated the was identified. Under CT guidance a 22-gauge needle was advanced into the midline umbilical level anterior abdominal wall and fine-needle aspiration was acquired. In conjunction with the attending cytopathologist, a total of five fine needle aspirations were acquired at the umbilical level midline abdominal wall soft tissue. The patient tolerated the procedure well without incident. Postprocedural CT does not demonstrate any signs of immediate complication. The patient was transported back to her inpatient room. IMPRESSION: CT guided FNA of midline, umbilical level abdominal wall soft tissue as described.
[2016-11-24] MEDS: HYDROmorphone* 1 MG/ML 1 ML SYR IV SLOW PU PRN ×2 (16:16→21:35)
[2016-11-24] MEDS: Atorvastatin* 40 MG TAB PO SCH (21:35)
[2016-11-24] MEDS: Atenolol TAB* 25 MG PO SCH (21:35)
[2016-11-25] MEDS: HYDROmorphone* 1 MG/ML 1 ML SYR IV SLOW PU PRN ×4 (01:15→22:01)
[2016-11-25] MEDS: Enoxaparin(*) 40 MG/0.4 ML SYR SUBCUT SCH (01:15)
[2016-11-25] MEDS: oxyCODONE TAB* 5 MG TAB PO PRN ×5 (04:31→23:34)
[2016-11-25] MEDS: NALOXEGOL OXALATE 25 MG PO SCH (05:49)
[2016-11-25] MEDS: Levothyroxine TAB* 125 MCG TAB PO SCH (05:49)
[2016-11-25 06:11] LABS: Hematocrit 37 % (35-47); Mean Corpuscular HGB Conc 33 g/dl (31-36); Mean Corpuscular Hemoglobin 33 pg (27-31); Mean Corpuscular Volume 101 fL (80-97); Mean Platelet Volume 7 um3 (7.4-10.4); Red Blood Count 3.64 10^6/ul (4.0-5.4); Red Cell Distribution Width 15 % (10.5-15); White Blood Count 7.8 10^3/ul (3.5-10.8)
[2016-11-25 06:28] LABS: Calcium 9.5 mg/dL (8.6-10.3); EGFR African American 76.2 (>60); EGFR Non-African American 59.3 (>60); Potassium 3.9 mmol/L (3.5-5.0)
[2016-11-25] MEDS: fentaNYL Patch Check Q Shift 1 NOTE SCH ×2 (07:54→19:17)
[2016-11-25] MEDS: Oxybutynin XL TAB* 5 MG PO SCH (08:58)
[2016-11-25] MEDS: Docusate CAP* 100 MG PO SCH ×2 (08:59→20:07)
[2016-11-25] MEDS: fentaNYL PATCH 50 MCG/HR TRANSDERM SCH (09:00)
[2016-11-25] MEDS ORDERED: fentaNYL PATCH 75 MCG/HR* 75 MCG TRANSDERM SCH (11:30)
[2016-11-25] MEDS ORDERED: fentaNYL PATCH 50 MCG/HR TRANSDERM SCH (11:30)
[2016-11-25] MEDS ORDERED: fentaNYL PATCH 75 MCG/HR* 75 MCG ONE (13:43)
[2016-11-25] MEDS: Ondansetron INJ* 2 MG/ML VIAL IV PRN (17:09)
[2016-11-25] MEDS: Simethicone CHEW TAB* 80 MG PO PRN (18:21)
[2016-11-25] MEDS: Atorvastatin* 40 MG TAB PO SCH (20:07)
[2016-11-25] MEDS: Atenolol TAB* 25 MG PO SCH (20:07)
[2016-11-26] MEDS: Enoxaparin(*) 40 MG/0.4 ML SYR SUBCUT SCH ×2 (00:24→23:48)
[2016-11-26] MEDS: HYDROmorphone* 1 MG/ML 1 ML SYR IV SLOW PU PRN ×4 (03:15→18:03)
[2016-11-26] MEDS: Levothyroxine TAB* 125 MCG TAB PO SCH (05:49)
[2016-11-26] MEDS: oxyCODONE TAB* 5 MG TAB PO PRN ×3 (05:49→21:17)
[2016-11-26] MEDS: NALOXEGOL OXALATE 25 MG PO SCH (05:51)
[2016-11-26] MEDS: fentaNYL Patch Check Q Shift 1 NOTE SCH ×2 (07:06→18:55)
[2016-11-26] MEDS: Docusate CAP* 100 MG PO SCH ×2 (08:41→21:00)
[2016-11-26] MEDS: Oxybutynin XL TAB* 5 MG PO SCH (08:41)
[2016-11-26] MEDS ORDERED: Glycerin ADULT SUPP PR ONE (10:10)
[2016-11-26] MEDS: Ondansetron INJ* 2 MG/ML VIAL IV PRN (18:13)
[2016-11-26] MEDS ORDERED: LORazepam INJ* 2 MG/ML 1 ML VIAL IV PUSH PRN (19:47)
[2016-11-26] MEDS ORDERED: LORazepam INJ* 2 MG/ML 1 ML VIAL ONE (19:56)
[2016-11-26] MEDS: Atorvastatin* 40 MG TAB PO SCH (21:00)
[2016-11-26] MEDS: Ondansetron ODT TAB* 4 MG PO PRN (21:00)
[2016-11-26] MEDS: Atenolol TAB* 25 MG PO SCH (21:00)
[2016-11-27] MEDS: HYDROmorphone* 1 MG/ML 1 ML SYR IV SLOW PU PRN ×3 (03:00→23:41)
[2016-11-27] MEDS: Levothyroxine TAB* 125 MCG TAB PO SCH (05:49)
[2016-11-27] MEDS: oxyCODONE TAB* 5 MG TAB PO PRN ×2 (05:50→15:31)
[2016-11-27] MEDS: NALOXEGOL OXALATE 25 MG PO SCH (05:51)
[2016-11-27] MEDS: fentaNYL Patch Check Q Shift 1 NOTE SCH ×2 (06:50→19:13)
[2016-11-27 06:53] LABS: Hematocrit 39 % (35-47); Hemoglobin 12.6 g/dl (12.0-16.0); Mean Corpuscular HGB Conc 33 g/dl (31-36); Mean Corpuscular Hemoglobin 33 pg (27-31); Mean Corpuscular Volume 101 fL (80-97); Mean Platelet Volume 7 um3 (7.4-10.4); Red Blood Count 3.85 10^6/ul (4.0-5.4); Red Cell Distribution Width 15 % (10.5-15); White Blood Count 11.1 10^3/ul (3.5-10.8)
[2016-11-27 07:11] LABS: Albumin 3.9 g/dL (3.2-5.2); BUN/Creatinine Ratio 14.4 (8-20); Calcium 9.2 mg/dL (8.6-10.3); EGFR Non-African American 52.1 (>60); Globulin 3.1 g/dL (2-4); Potassium 4.1 mmol/L (3.5-5.0); Total Bilirubin 0.6 mg/dL (0.2-1.0)
[2016-11-27] MEDS ORDERED: oxyCODONE TAB* 5 MG TAB PO ONE (07:21)
--- NOTE | 2016-11-27 07:29 | PN ---
Progress Note - Progress Note SOAP: Subjective: very uncomfortable this am. still no BMs. no vomiting. passing gas but very painful for abdomen to walk to and from bathroom. port stopped working last night. Objective: Vital Signs Temp Pulse Resp BP Pulse Ox 98.1 F 70 16 110/71 95 11/27/16 03:17 11/27/16 03:17 11/27/16 05:50 11/27/16 03:17 11/27/16 03:17 sitting up, uncomfortable appearing perr eomi op dry CTA bl s1 s2 nl distended, tender, +bs no le edema A+O x 3 Laboratory Results - last 24 hr 11/27/16 11/27/16 06:44 06:44 WBC 11.1 H RBC 3.85 L Hgb 12.6 Hct 39 MCV 101 H MCH 33 H MCHC 33 RDW 15 Plt Count 304 MPV 7 L Neut % (Auto) 71.6 Lymph % (Auto) 17.0 L [place] % (Auto) 8.6 Eos % (Auto) 2.3 Baso % (Auto) 0.5 Absolute Neuts (auto) 8.0 H Absolute Lymphs (auto) 1.9 Absolute Monos (auto) 1.0 H Absolute Eos (auto) 0.3 Absolute Basos (auto) 0.1 Absolute Nucleated RBC 0 Nucleated RBC % 0 Sodium 136 Potassium 4.1 Chloride 102 Carbon Dioxide 26 Anion Gap 8 BUN 15 Creatinine 1.04 H Est GFR ( Amer) 67.0 Est GFR (Non-Af Amer) 52.1 BUN/Creatinine Ratio 14.4 Glucose 104 H Calcium 9.2 Total Bilirubin 0.60 AST 15 ALT 7 Alkaline Phosphatase 87 Total Protein 7.0 Albumin 3.9 Globulin 3.1 Albumin/Globulin Ratio 1.3 Atenolol (Tenormin Tab*) 25 mg PO BEDTIME [facility] Last Admin: 11/26/16 21:00 Dose: 25 mg Atorvastatin Calcium (Lipitor*) 40 mg PO 2100 [facility] Last Admin: 11/26/16 21:00 Dose: 40 mg Docusate Sodium (Colace Cap*) 100 mg PO BID [facility] Last Admin: 11/26/16 21:00 Dose: 100 mg Enoxaparin Sodium (Lovenox(*)) 40 mg SUBCUT 0000 [facility] Last Admin: 11/26/16 23:48 Dose: 40 mg Fentanyl (Duragesic Patch 75 Mcg/Hr*) 100 mcg TRANSDERM Q72H [facility] Heparin Sodium (Porcine) (Heparin Flush Port (Ivad)) 5 ml FLUSH DAILY [facility] PRN Reason: Protocol Last Admin: 11/26/16 18:06 Dose: 5 ml Hydromorphone HCl (Dilaudid Iv*) 1 mg IV SLOW PU Q4H PRN PRN Reason: PAIN Last Admin: 11/27/16 03:00 Dose: 1 mg Lactulose (Lactulose*) 30 ml PO QID [facility] Last Admin: 11/26/16 21:01 Dose: Not Given Levothyroxine Sodium (Synthroid Tab*) 125 mcg PO 0600 [facility] Last Admin: 11/27/16 05:49 Dose: 125 mcg Lidocaine/Prilocaine (Emla 5 Gm*) 1 applic TOPICAL UC ONCE PRN PRN Reason: pain Last Admin: 11/22/16 08:21 Dose: 1 applic Lorazepam (Ativan Inj*) 0.5 mg IV PUSH Q4H PRN PRN Reason: NAUSEA/VOMITING Last Admin: 11/26/16 20:06 Dose: 0.5 mg Pto:Naloxegol Oxalate [Movantik] 25 Mg 25 mg PO 0600 [facility] Last Admin: 11/27/16 05:51 Dose: 25 mg Omeprazole (Prilosec Cap*) 20 mg PO DAILY PRN PRN Reason: INDIGESTION Last Admin: 11/22/16 14:36 Dose: 20 mg Ondansetron HCl (Zofran Inj*) 4 mg IV Q6H PRN PRN Reason: NAUSEA Last Admin: 11/26/16 18:13 Dose: 4 mg Ondansetron HCl (Zofran Odt Tab*) 8 mg PO Q8H PRN PRN Reason: NAUSEA/VOMITING Last Admin: 11/26/16 21:00 Dose: 8 mg Oxybutynin Chloride (Ditropan Xl Tab*) 15 mg PO DAILY [facility] Last Admin: 11/26/16 08:41 Dose: 15 mg Oxycodone HCl (Roxycodone Tab*) 20 mg PO Q4H PRN PRN Reason: PAIN Last Admin: 11/27/16 05:50 Dose: 20 mg Oxycodone HCl (Roxycodone Tab*) 20 mg PO ONCE ONE Stop: 11/27/16 07:22 Pharmacy Profile Note (Fentanyl Patch Check Q Shift) 1 note N/A 0700,1900 [facility] Last Admin: 11/27/16 06:50 Dose: 1 note Scopolamine (Transderm-Scop 1.5 Mg Patch*) 1 patch TRANSDERM Q72H [facility] Last Admin: 11/24/16 10:34 Dose: 1 patch Simethicone (Mylicon*) 80 mg PO Q4H PRN PRN Reason: GAS Last Admin: 11/25/16 18:21 Dose: 80 mg Tizanidine HCl (Zanaflex Tab*) 4 mg PO BID PRN PRN Reason: muscle relax Assessment: 71 yo F w recurrent metastatic CRC, BRAF positive, presenting with significant abdominal pain from omental disease. We are still not able to control her pain at this point and so I do think we need to move forward with inpatient chemotherpay in an attempt to debulk her. Plan: -FOLFIRI chemotherapy today (if port not functioning will place PICC for this cycle and then have port replaced) -encouraged to use suppository today -cont lactulose q8 hrs -cont simethicone -increase fentanyl to 100 mcg today -cont prn dilaudid IV and po oxycodone -scop patch and zofran for nausea -prn ativan nausea -DNR
[2016-11-27] MEDS: Alteplase (CATHFLO)* 2 MG VIAL ONE ×2 (07:37→07:46)
[2016-11-27] MEDS: Docusate CAP* 100 MG PO SCH ×2 (07:38→20:09)
[2016-11-27] MEDS ORDERED: Glycerin ADULT SUPP PR ONE (08:00)
[2016-11-27] MEDS: fentaNYL PATCH 50 MCG/HR TRANSDERM SCH (08:04)
[2016-11-27] MEDS: Oxybutynin XL TAB* 5 MG PO SCH (09:10)
[2016-11-27] MEDS: Scopolamine 1.5 mg* PATCH TRANSDERM SCH (09:12)
[2016-11-27] MEDS ORDERED: Hyoscyamine TAB* 0.125 MG PO PRN (10:20)
[2016-11-27] MEDS ORDERED: Atropine SYRINGE* 0.1 MG/ML 10 ML SYRINGE (1 MG) IV PRN (10:22)
[2016-11-27] MEDS ORDERED: Dexamethasone IV* 4 MG/ML 1 ML (4 MG) ONE (10:57)
[2016-11-27] MEDS ORDERED: Ondansetron INJ* 2 MG/ML VIAL ONE (10:57)
[2016-11-27] MEDS ORDERED: Dexamethasone IV* 8 MG in NS 0.9% 50 ML* 50 ML IVPB ONE (11:00)
[2016-11-27] MEDS ORDERED: ONDANSETRON IV ONE (11:00)
[2016-11-27] MEDS ORDERED: NS 0.9% IV ONE (11:00)
[2016-11-27] MEDS ORDERED: LEUCOVORIN CALCIUM IVPB ONE (12:00)
[2016-11-27] MEDS ORDERED: IRINOTECAN IVPB ONE (12:00)
[2016-11-27] MEDS ORDERED: D5W IVPB ONE ×2 (12:00)
[2016-11-27] MEDS ORDERED: FLUOROURACIL IVPB ONE (14:00)
[2016-11-27] MEDS ORDERED: NS 0.9% IVPB ONE (14:00)
[2016-11-27] MEDS ORDERED: FLUOROURACIL IV SCH (14:30)
[2016-11-27] MEDS ORDERED: Oral Rinse (Biotene)(NF) 237 ML ORAL RINSE BTL MT PRN (19:14)
[2016-11-27] MEDS: Atenolol TAB* 25 MG PO SCH (20:09)
[2016-11-27] MEDS: Atorvastatin* 40 MG TAB PO SCH (20:09)
[2016-11-27] MEDS: Enoxaparin(*) 40 MG/0.4 ML SYR SUBCUT SCH (23:47)
[2016-11-28] MEDS: NALOXEGOL OXALATE 25 MG PO SCH (06:14)
[2016-11-28] MEDS: Levothyroxine TAB* 125 MCG TAB PO SCH (06:14)
[2016-11-28] MEDS: HYDROmorphone* 1 MG/ML 1 ML SYR IV SLOW PU PRN ×2 (06:19→19:41)
[2016-11-28] MEDS: fentaNYL Patch Check Q Shift 1 NOTE SCH ×2 (06:42→19:13)
[2016-11-28] MEDS: Oxybutynin XL TAB* 5 MG PO SCH (07:59)
[2016-11-28] MEDS: Ondansetron ODT TAB* 4 MG PO PRN (08:00)
[2016-11-28] MEDS: Docusate CAP* 100 MG PO SCH ×2 (08:00→19:42)
[2016-11-28] MEDS: oxyCODONE TAB* 5 MG TAB PO PRN (08:00)
[2016-11-28] MEDS: Omeprazole CAP* 20 MG PO PRN (08:00)
[2016-11-28 08:07] LABS: Hematocrit 37 % (35-47); Hemoglobin 12.2 g/dl (12.0-16.0); Mean Corpuscular HGB Conc 33 g/dl (31-36); Mean Corpuscular Hemoglobin 33 pg (27-31); Mean Corpuscular Volume 100 fL (80-97); Mean Platelet Volume 8 um3 (7.4-10.4); Red Blood Count 3.72 10^6/ul (4.0-5.4); Red Cell Distribution Width 15 % (10.5-15); White Blood Count 7.9 10^3/ul (3.5-10.8)
[2016-11-28 08:25] LABS: Albumin 3.9 g/dL (3.2-5.2); BUN/Creatinine Ratio 15.3 (8-20); Calcium 9.4 mg/dL (8.6-10.3); EGFR African American 71.7 (>60); EGFR Non-African American 55.8 (>60); Globulin 3.1 g/dL (2-4); Magnesium 2.2 mg/dL (1.9-2.7); Total Bilirubin 0.5 mg/dL (0.2-1.0)
--- NOTE | 2016-11-28 10:04 | PN ---
Progress Note - Progress Note SOAP: Subjective: []Cont.'d abd. pain, severe with any movement - even deep breaths, sometimes passing gas. Limited improvement since admission. Best relief comes from IV dilaudid, however admits it may be r/t its quick onset. Long standing lower back pain and has been on oxycodone 20 mg PO 6x/day PRN for years. Normal BM yesterday, really wants to "stay on top of it." Seemed to have tolerated chemo yesterday and thus far well. No nausea with scopolamine patch, though significant dry mouth. Family to bring in biotin rinse. Medications: Atenolol (Tenormin Tab*) 25 mg PO BEDTIME [facility] Last Admin: 11/27/16 20:09 Dose: 25 mg Atorvastatin Calcium (Lipitor*) 40 mg PO 2100 [facility] Last Admin: 11/27/16 20:09 Dose: 40 mg Atropine Sulfate (Atropine Syringe*) 0.5 mg IV ONCE PRN PRN Reason: CRAMPING Stop: 11/28/16 23:59 Docusate Sodium (Colace Cap*) 100 mg PO BID [facility] Last Admin: 11/28/16 08:00 Dose: 100 mg Enoxaparin Sodium (Lovenox(*)) 40 mg SUBCUT 0000 [facility] Last Admin: 11/27/16 23:47 Dose: 40 mg Fentanyl (Duragesic Patch 50 Mcg/Hr*) 100 mcg TRANSDERM Q72H [facility] Last Admin: 11/27/16 08:04 Dose: 100 mcg Heparin Sodium (Porcine) (Heparin Flush Port (Ivad)) 5 ml FLUSH DAILY [facility] PRN Reason: Protocol Last Admin: 11/28/16 07:31 Dose: Not Given Hydromorphone HCl (Dilaudid Iv*) 1 mg IV SLOW PU Q4H PRN PRN Reason: PAIN Last Admin: 11/28/16 06:19 Dose: 1 mg Hydromorphone HCl (Dilaudid Tab*) 6 mg PO Q4H PRN PRN Reason: PAIN Hyoscyamine (Anaspaz Tab*) 0.125 mg PO ONCE PRN PRN Reason: MAY REPEAT X 1 CRAMPING Stop: 11/28/16 10:21 Lactulose (Lactulose*) 30 ml PO QID [facility] Last Admin: 11/28/16 07:43 Dose: Not Given Levothyroxine Sodium (Synthroid Tab*) 125 mcg PO 0600 [facility] Last Admin: 11/28/16 06:14 Dose: 125 mcg Lidocaine/Prilocaine (Emla 5 Gm*) 1 applic TOPICAL UC ONCE PRN PRN Reason: pain Last Admin: 11/22/16 08:21 Dose: 1 applic Lorazepam (Ativan Inj*) 0.5 mg IV PUSH Q4H PRN PRN Reason: NAUSEA/VOMITING Last Admin: 11/26/16 20:06 Dose: 0.5 mg Multi-Ingredient Mouthwash/Gargle (Biotene Dry Mouth Oral Rinse(Nf)) 5 ml MT ONCE PRN PRN Reason: MD DISCRETION Pto:Naloxegol Oxalate [Movantik] 25 Mg 25 mg PO 0600 [facility] Last Admin: 11/28/16 06:14 Dose: 25 mg Non Formulary (Fluorouracil Pto) 1 dose IV PER RATE [facility] Stop: 11/29/16 12:30 Omeprazole (Prilosec Cap*) 20 mg PO DAILY PRN PRN Reason: INDIGESTION Last Admin: 11/28/16 08:00 Dose: 20 mg Ondansetron HCl (Zofran Inj*) 4 mg IV Q6H PRN PRN Reason: NAUSEA Last Admin: 11/26/16 18:13 Dose: 4 mg Ondansetron HCl (Zofran Odt Tab*) 8 mg PO Q8H PRN PRN Reason: NAUSEA/VOMITING Last Admin: 11/28/16 08:00 Dose: 8 mg Oxybutynin Chloride (Ditropan Xl Tab*) 15 mg PO DAILY [facility] Last Admin: 11/28/16 07:59 Dose: 15 mg Pharmacy Profile Note (Fentanyl Patch Check Q Shift) 1 note N/A 0700,1900 [facility] Last Admin: 11/28/16 06:42 Dose: 1 note Scopolamine (Transderm-Scop 1.5 Mg Patch*) 1 patch TRANSDERM Q72H [facility] Last Admin: 11/27/16 09:12 Dose: 1 patch Simethicone (Mylicon*) 80 mg PO Q4H PRN PRN Reason: GAS Last Admin: 11/25/16 18:21 Dose: 80 mg Tizanidine HCl (Zanaflex Tab*) 4 mg PO BID PRN PRN Reason: muscle relax Objective: [] Vital Signs Temp Pulse Resp BP Pulse Ox 98.2 F 63 16 124/66 96 11/28/16 07:29 11/28/16 07:29 11/28/16 10:00 11/28/16 07:29 11/28/16 07:29 A&Ox3, EOMI, PERRLA, [place], winces with minimal movement HRR, S1S2 LS clear bilat., no wheeze or rhonchi +BS, abd. soft and tender Port LCW /c 5FU infusion Laboratory Results - last 24 hr 11/28/16 11/28/16 07:39 07:39 WBC 7.9 RBC 3.72 L Hgb 12.2 Hct 37 MCV 100 H MCH 33 H MCHC 33 RDW 15 Plt Count 279 MPV 8 Neut % (Auto) 62.6 Lymph % (Auto) 25.3 [place] % (Auto) 11.1 H Eos % (Auto) 0.4 Baso % (Auto) 0.6 Absolute Neuts (auto) 5.0 Absolute Lymphs (auto) 2.0 Absolute Monos (auto) 0.9 H Absolute Eos (auto) 0 Absolute Basos (auto) 0 Absolute Nucleated RBC 0 Nucleated RBC % 0 Sodium 138 Potassium 4.0 Chloride 102 Carbon Dioxide 29 Anion Gap 7 BUN 15 Creatinine 0.98 H Est GFR ( Amer) 71.7 Est GFR (Non-Af Amer) 55.8 BUN/Creatinine Ratio 15.3 Glucose 84 Calcium 9.4 Magnesium 2.2 Total Bilirubin 0.50 AST 15 ALT 8 Alkaline Phosphatase 82 Total Protein 7.0 Albumin 3.9 Globulin 3.1 Albumin/Globulin Ratio 1.3 Assessment: []71 yo f with metastatic colon cancer (progressed weeks after completing adjuvant therapy) with significant abd. pain felt to be r/t omental implants therefore during attempt to manage pain with IV and advancing PO/transdermal meds initiated palliative chemotherapy for debulking now C1D2 FOLFIRI. She has had limited improvement in pain and has a long history or narcotic use r/t chronic back pain, therefore I think it is reasonable to try switching her PO meds. Discussed medications at length with pt. Plan: []1. Pain: cont. Fentanyl (started @ 50 mcg on admission 11/22, increased to 75 mcg on 5/9, and then to 100 mcg yesterday 11/27), d/c oxycodone, and start hydromorphone 6mg PO q4hrs PRN. OK to cont. IV PRN as well, but goal of transitioning to better management on PO. 2. Cancer: cont. FOLFIRI through tomorrow per protocol. Discussed palliative nature of tx.'s and therefore will d/c statin. Reviewed goals of tx. and pt. states good understanding. Will suggest palliative consult upon d/c (holding off d/t acute nature of pain). 3. Constipation: managed well for now, will need to follow closely d/t risk of diarrhea with Irinotecan and extent of narcotics.
[2016-11-28] MEDS: HYDROmorphone TAB* 2 MG PO PRN ×2 (10:30→19:54)
[2016-11-28] MEDS: Atenolol TAB* 25 MG PO SCH (19:42)
[2016-11-29] MEDS: Enoxaparin(*) 40 MG/0.4 ML SYR SUBCUT SCH ×2 (01:05→23:36)
[2016-11-29] MEDS: HYDROmorphone* 1 MG/ML 1 ML SYR IV SLOW PU PRN ×3 (02:48→20:03)
[2016-11-29] MEDS: HYDROmorphone TAB* 2 MG PO PRN ×5 (02:55→23:34)
[2016-11-29] MEDS: Levothyroxine TAB* 125 MCG TAB PO SCH (06:08)
[2016-11-29] MEDS: NALOXEGOL OXALATE 25 MG PO SCH (06:09)
[2016-11-29] MEDS: fentaNYL Patch Check Q Shift 1 NOTE SCH (07:00)
[2016-11-29] MEDS ORDERED: RINSE MT PRN (10:00)
[2016-11-29] MEDS: Oxybutynin XL TAB* 5 MG PO SCH (10:08)
[2016-11-29] MEDS: Docusate CAP* 100 MG PO SCH ×2 (10:08→20:04)
[2016-11-29] MEDS ORDERED: Lidocaine 2.5%/Prilocain 2.5%* 5 GM TUBE TOPICAL PRN (16:48)
[2016-11-29] MEDS: Lidocaine 2.5%/Prilocain 2.5%* 5 GM TUBE TOPICAL PRN (17:49)
[2016-11-29] MEDS: Atenolol TAB* 25 MG PO SCH (21:25)
[2016-11-30] MEDS: fentaNYL Patch Check Q Shift 1 NOTE SCH ×3 (00:16→18:47)
[2016-11-30] MEDS: HYDROmorphone* 1 MG/ML 1 ML SYR IV SLOW PU PRN ×4 (06:21→21:59)
[2016-11-30] MEDS: NALOXEGOL OXALATE 25 MG PO SCH (06:22)
[2016-11-30] MEDS: Levothyroxine TAB* 125 MCG TAB PO SCH (06:22)
[2016-11-30] MEDS: fentaNYL PATCH 50 MCG/HR TRANSDERM SCH (07:19)
[2016-11-30] MEDS: Scopolamine 1.5 mg* PATCH TRANSDERM SCH (08:41)
[2016-11-30] MEDS: Oxybutynin XL TAB* 5 MG PO SCH (08:43)
[2016-11-30] MEDS: HYDROmorphone TAB* 2 MG PO PRN ×3 (08:43→18:01)
[2016-11-30] MEDS: Docusate CAP* 100 MG PO SCH ×3 (08:44→22:05)
[2016-11-30] MEDS: Simethicone CHEW TAB* 80 MG PO PRN (18:04)
[2016-11-30] MEDS: Atenolol TAB* 25 MG PO SCH (22:03)
[2016-12-01] MEDS: Enoxaparin(*) 40 MG/0.4 ML SYR SUBCUT SCH (00:30)
[2016-12-01] MEDS: Magic Mouth Was-BEN/MAAL/LIDO SWISH SPIT PRN ×2 (01:31→08:01)
[2016-12-01] MEDS: HYDROmorphone* 1 MG/ML 1 ML SYR IV SLOW PU PRN (06:25)
[2016-12-01] MEDS: Levothyroxine TAB* 125 MCG TAB PO SCH (06:27)
[2016-12-01] MEDS: NALOXEGOL OXALATE 25 MG PO SCH (06:29)
[2016-12-01] MEDS: Docusate CAP* 100 MG PO SCH (08:00)
[2016-12-01] MEDS: Oxybutynin XL TAB* 5 MG PO SCH (08:00)
[2016-12-01] MEDS: fentaNYL Patch Check Q Shift 1 NOTE SCH (08:03)
[2016-12-01 09:05] VITALS: BP 106/73
--- NOTE | 2016-12-01 23:24 | DS ---
DISCHARGE SUMMARY: DATE OF ADMISSION: 11/22/16 DATE OF DISCHARGE: 12/01/16 PRINCIPAL DIAGNOSIS AND CHIEF COMPLAINT: Abdominal pain. HOSPITAL COURSE: Briefly, Ms. Gordillo is a 71-year-old white female with metastatic colon cancer, who reported epigastric and right upper quadrant pain for several weeks and came to the emergency with intractable and severe pain in the upper abdomen. She was admitted through the emergency room by Dr. Zach Mario and placed on aggressive narcotics. She did subsequently have a CT scan of the abdomen and pelvis, which revealed some omental caking and did have an omental biopsy during her hospital stay. It did reveal a recurrent colon cancer, and omental and mesenteric metastatic disease to include a fatty infiltration of the liver with minimal ascites. Subsequent to that her abdominal pain was recalcitrant to heavy narcotics during her hospital stay and it was felt that if we were to able to control her pain, she would need to be treated as an inpatient with aggressive chemotherapy and FOLFIRI chemotherapy was started. She had tolerated the FOLFIRI well and has subsequently had a bowel movement as she had had significant obstipation throughout her hospital stay and will need to be aggressive with her medications when she goes home. Throughout the course of her stay, she was afebrile and did not develop any significant infections. She did have some mouth sores after her chemotherapy, which was treated with Miracle Mouthwash. The patient is agreeable to going home with the VNS services, so that they can keep track of her as she does live alone. She is able to ambulate on her own here with the walker and she does have equipment at home as she has stated in the past. She was a high risk for DVT and was placed on Lovenox therapy secondary to both her immobility and cancer diagnosis. DISCHARGE MEDICATIONS: She will be sent home on following discharge medications : 1. Naloxegol aka Movantik for narcotic constipation 25 mg daily. 2. Atenolol 25 mg at bedtime. 3. Colace 100 mg twice daily. 4. Lactulose 30 mL up to 3 times daily p.r.n. constipation. 5. Levothyroxine 125 mg p.o. daily. 6. Magic Mouthwash 10 mL swish and spit 4 times daily as needed for mouth sores. 7. Nexium 40 mg p.o. daily. 8. Ondansetron 4 mg every 6 hours as needed for chemotherapy nausea. 9. Biotene oral rinse 237 mL bottle 5 mL as needed for dry mouth. 10. Oxybutynin 15 mg p.o. daily. 11. Scopolamine patch transdermal 1.5 mg, change every 72 hours for nausea. 12. Simethicone tablets 80 mg every 4 hours as needed/p.r.n. 13. Fentanyl patch 100 mcg topically every 72 hours. 14. Tizanidine 4 mg twice daily as needed for muscle spasms. 15. Aspirin 81 mg p.o. daily. 16. Atorvastatin 40 mg daily. 17. Started Celexa 10 mg p.o. at bedtime as she has had significant concern about recurrence of her depression as she has had chronic depression in the past. 18. Oxycodone 5 mg 2 tabs every 4 hours as needed for breakthrough pain. DISCHARGE INSTRUCTIONS: She will follow diet as tolerated and activity level to get up and move at least 3 to 4 times daily at home. She will have visiting nurse service checking on her at least twice weekly just to make sure she is doing okay and she will need to follow up with Dr. Yao in approximately 7 to 10 days. ELIZABETH SMITH [id number]/[facility] #: [id number] [place]
== END 2016-12-01 14:30 | disposition home or self-care (01) | DRG 948 ==
LOC: ED 19:51 → MED 11-22 01:53
PROVIDERS: ADMIT Internal Medicine; ATTEND Internal Medicine Hematology & Oncology
PROC: 0DBS3ZX (ICD-10-PCS; principal; 2016-11-24)
DX: G89.3 Neoplasm related pain (acute) (chronic) (principal); I11.9 Hypertensive heart disease without heart failure; C78.7 Secondary malignant neoplasm of liver and intrahepatic bile duct; C78.6 Secondary malignant neoplasm of retroperitoneum and peritoneum; C18.9 Malignant neoplasm of colon, unspecified; K59.00 Constipation, unspecified; E03.9 Hypothyroidism, unspecified; I25.10 Atherosclerotic heart disease of native coronary artery without angina pectoris; I73.9 Peripheral vascular disease, unspecified; M54.5 Low back pain; I25.2 Old myocardial infarction; Z79.82 Long term (current) use of aspirin; Z79.891 Long term (current) use of opiate analgesic; Z91.048 Other nonmedicinal substance allergy status; Z82.49 Family history of ischemic heart disease and other diseases of the circulatory system; Z80.49 Family history of malignant neoplasm of other genital organs; Z87.891 Personal history of nicotine dependence; Z66 Do not resuscitate; Z79.899 Other long term (current) drug therapy
CPT/HCPCS: 36415; 49180; 71010; 71275; 74000; 77012; 80048; 80053; 83605; 83690; 83735; 84484; 85025; 85379; 85610; 85730; 88172; 88173; 88177; 88305; 88341; 88342; 93005; 99232; 99233; 99239; A9270-GY; J0640; J1100; J1170; J1642; J1650; J2060; J2270; J2405; J2997; J3010; J9190; J9206; Q9967

== ENCOUNTER 2016-12-08 15:35 | Inpatient (IN) | payer MEDICARE ==
[2016-12-08] MEDS ORDERED: NS 0.9% 1000 ML* 2,000 ML IV ONE (16:14)
[2016-12-08] MEDS ORDERED: Ondansetron INJ* 2 MG/ML VIAL IV ONE (16:14)
[2016-12-08] MEDS ORDERED: HYDROmorphone* 1 MG/ML 1 ML SYR IV ONE (16:14)
[2016-12-08 18:08] LABS: Hematocrit 38 % (35-47); Hemoglobin 12.6 g/dl (12.0-16.0); Mean Corpuscular HGB Conc 33 g/dl (31-36); Mean Corpuscular Hemoglobin 33 pg (27-31); Mean Corpuscular Volume 99 fL (80-97); Mean Platelet Volume 8 um3 (7.4-10.4); Red Blood Count 3.88 10^6/ul (4.0-5.4); Red Cell Distribution Width 14 % (10.5-15)
[2016-12-08 18:23] LABS: ALT 6 U/L (7-52); AST 17 U/L (13-39); Albumin 4.2 g/dL (3.2-5.2); Alkaline Phosphatase 79 U/L (34-104); Anion Gap 10 mmol/L (2-11); BUN/Creatinine Ratio 30.9 (8-20); Blood Urea Nitrogen 25 mg/dL (6-24); C Reactive Protein 26.88 mg/L (< 5.00); CO2 Carbon Dioxide 25 mmol/L (22-32); Calcium 9.3 mg/dL (8.6-10.3); Chloride 103 mmol/L (101-111); EGFR African American 89.4 (>60); EGFR Non-African American 69.5 (>60); Globulin 3.2 g/dL (2-4); Glucose 90 mg/dL (70-100); Lipase < 10 U/L (11.0-82.0); Potassium 3.5 mmol/L (3.5-5.0); Sodium 138 mmol/L (133-145); Total Protein 7.4 g/dL (6.4-8.9)
--- NOTE | 2016-12-08 18:55 | ED ---
Maude Contreras Rebecca, scribed for Renate Sequeira MD on 12/08/16 at 1601 . Abdominal Pain/Female - HPI Summary HPI Summary: Pt is a 71 y/o F BIBA who presents to ED c/o abd pain. Pain began gradually 1 week ago and has been constant since onset, worsening 2 days ago. Pain is diffuse and severe, ranked 8/10 and characterized as sharp. Sx aggravated and alleviated by nothing. Additionally c/o nausea and constipation. Reports constipation has been present "forever." Denies CP, SOB. Pt was admitted on November 22 with severe abdominal pain. Exams reveals omental caking and she received IV chemo. Was D/C to home on December 01. Currently has colon CA, oncologist is Dr. Yao and her next chemotherapy treatment is in 2 days. - History of Current Complaint Chief Complaint: EDAbdPain Stated Complaint: ABD PAIN Time Seen by Provider: 12/08/16 15:55 Hx Obtained From: Patient Onset/Duration: Gradual Onset, Lasting Weeks - 1 week, Still Present, Worse Since - 2 days ago Timing: Constant Severity Initially: Moderate Severity Currently: Severe Pain Intensity: 8 Pain Scale Used: 0-10 Numeric Location: Diffuse Radiates: No Character: Sharp Aggravating Factor(s): Nothing Alleviating Factor(s): Nothing Associated Signs and Symptoms: Positive: Constipation, Nausea, Other: - Denies SOB. Negative: Chest Pain Allergies/Adverse Reactions: Allergies Allergy/AdvReac Type Severity Reaction Status Date / Time Adhesive Tape Allergy Rash Verified 05/26/16 10:14 Home Medications: Home Medications Esomeprazole(NF) [NexIUM(NF)] 40 mg PO DAILY 12/08/16 [History Confirmed ] Naloxegol Oxalate [Movantik] 25 mg PO QPM 12/08/16 [History Confirmed 12/08/16] Oral Rinse (Biotene)(NF) [Biotene Dry Mouth Oral Rinse(NF)] 5 ml PO DAILY PRN [History Confirmed 12/08/16] Oxybutynin TAB* [Ditropan TAB*] 15 mg PO DAILY 12/08/16 [History Confirmed 12/08] Tizanidine HCl 4 mg PO BID PRN 12/08/16 [History Confirmed 12/08/16] oxyCODONE TAB* [Roxycodone TAB 5 mg*] 10 mg PO Q4H PRN MDD 6 tablets 12/08/16 [ History Confirmed 12/08/16] PMH/Surg Hx/FS Hx/Imm Hx Endocrine/Hematology History: Reports: Hx Thyroid Disease Cardiovascular History: Reports: Hx Aneurysm, Hx Hypercholesterolemia, Hx Hypertension - ON MEDS, Hx Myocardial Infarction, Other Cardiovascular Problems/ Disorders - 2015, AORTIC BYPASS GI History: Reports: Hx Gastroesophageal Reflux Disease, Other GI Disorders - COLON CANCER Musculoskeletal History: Reports: Hx Back Problems Sensory History: Reports: Hx Contacts or Glasses Denies: Hx Hearing Aid Opthamlomology History: Reports: Hx Contacts or Glasses - Cancer History Cancer Type, Location and Year: colon Hx Chemotherapy: Yes - STARTING 05/27/16 - Surgical History Surgery Procedure, Year, and Place: ABDOMINAL ANEURYSM 2014. AORTIC VALVE REPLACEMENT 2014. 2016, COLON TUMOR, [facility] Hx Anesthesia Reactions: No - Family History Known Family History: Positive: Hypertension - Social History Alcohol Use: Daily Substance Use Type: Reports: None Smoking Status (MU): Former Smoker Amount Used/How Often: PACK A DAY Review of Systems Negative: Chest Pain Negative: Shortness Of Breath Positive: Abdominal Pain, Nausea, Other - constipation All Other Systems Reviewed And Are Negative: Yes Physical Exam - Summary Physical Exam Summary: General: Well appearing, no pain distress Skin: Warm, Skin Color Reflects Adequate Perfusion, Dry Eyes: EOMI, NNUU ENT: Pharynx normal, TMs normal Neck: Supple, nontender Respiratory: CTA, breath sounds present, no rhonchi, no wheezes, no rales Cardiovascular: RRR, no murmur, no rub, no gallop Abdomen: Soft, Non-distended, no guarding, no rebound, diffuse abdominal pain Bowel: Decreased bowel sounds Musculoskeletal: DANIELLE, No edema Neuro: Sensory/motor intact, A&Ox3, CN intact 2-12 Psych: Affect/mood appropriate Triage Information Reviewed: Yes Vital Signs On Initial Exam: Initial Vitals Temp Pulse Resp BP Pulse Ox 98.0 F 86 24 102/87 99 12/08/16 16:00 12/08/16 16:00 12/08/16 16:00 12/08/16 16:00 12/08/16 16:00 Vital Signs Reviewed: Yes Diagnostics - Vital Signs Vital Signs Temp Pulse Resp BP Pulse Ox 12/08/16 17:00 81 92 12/08/16 16:29 22 12/08/16 16:06 85 98 12/08/16 16:00 98.0 F 86 24 102/87 99 - Laboratory Lab Results: Lab Results 12/08/16 12/08/16 12/08/16 Range/Units 17:42 17:42 17:42 WBC 5.0 (3.5-10.8) 10^3/ul RBC 3.88 L (4.0-5.4) 10^6/ul Hgb 12.6 (12.0-16.0) g/dl Hct 38 (35-47) % MCV 99 H (80-97) fL MCH 33 H (27-31) pg MCHC 33 (31-36) g/dl RDW 14 (10.5-15) % Plt Count 146 L (150-450) 10^3/ul MPV 8 (7.4-10.4) um3 Neut % (Auto) 65.8 (38-83) % Lymph % (Auto) 26.2 (25-47) % [place] % (Auto) 6.8 (1-9) % Eos % (Auto) 0.9 (0-6) % Baso % (Auto) 0.3 (0-2) % Absolute Neuts (auto) 3.3 (1.5-7.7) 10^3/ul Absolute Lymphs (auto) 1.3 (1.0-4.8) 10^3/ul Absolute Monos (auto) 0.3 (0-0.8) 10^3/ul Absolute Eos (auto) 0 (0-0.6) 10^3/ul Absolute Basos (auto) 0 (0-0.2) 10^3/ul Absolute Nucleated RBC 0 10^3/ul Nucleated RBC % 0.1 Sodium 138 (133-145) mmol/L Potassium 3.5 (3.5-5.0) mmol/L Chloride 103 (101-111) mmol/L Carbon Dioxide 25 (22-32) mmol/L Anion Gap 10 (2-11) mmol/L BUN 25 H (6-24) mg/dL Creatinine 0.81 (0.51-0.95) mg/dL Est GFR ( Amer) 89.4 (>60) Est GFR (Non-Af Amer) 69.5 (>60) BUN/Creatinine Ratio 30.9 H (8-20) Glucose 90 (70-100) mg/dL Lactic Acid 1.2 (0.5-2.0) mmol/L Calcium 9.3 (8.6-10.3) mg/dL Total Bilirubin 0.60 (0.2-1.0) mg/dL AST 17 (13-39) U/L ALT 6 L (7-52) U/L Alkaline Phosphatase 79 (34-104) U/L C-Reactive Protein 26.88 H (< 5.00) mg/L Total Protein 7.4 (6.4-8.9) g/dL Albumin 4.2 (3.2-5.2) g/dL Globulin 3.2 (2-4) g/dL Albumin/Globulin Ratio 1.3 (1-3) Lipase < 10 L (11.0-82.0) U/L Result Diagrams: 12/08/16 17:42 12/08/16 17:42 Lab Statement: Any lab studies that have been ordered have been reviewed, and results considered in the medical decision making process. Re-Evaluation - Re-Evaluation First Eval Re-Evaluation Time: 18:25 Change: Improved Comment: Pt looks significantly better after pain medication. Abdominal Pain Fem Course/Dx - Course Course Of Treatment: pt with intractable abdominal pain from colon ca with constipation, case discussed with Dr. Avendano for admission - Diagnoses Provider Diagnoses: Abdominal pain - Provider Notifications Discussed Care Of Patient With: Dr. Renae, who accept pt for admission. Time Discussed With Above Provider: 18:49 Discharge - Discharge Plan Condition: Fair Disposition: ADMITTED TO [facility] Referrals: Konrad Grimaldo MD [Primary Care Provider] - The documentation as recorded by the Maude ryder Rebecca accurately reflects the service I personally performed and the decisions made by me, Renate Sequeira MD.
[2016-12-08] MEDS ORDERED: Oral Rinse (Biotene)(NF) 237 ML ORAL RINSE BTL MT PRN (19:21)
[2016-12-08] MEDS ORDERED: tiZANidine TAB* 2 MG PO PRN (19:21)
[2016-12-08] MEDS ORDERED: Magic Mouth Was-BEN/MAAL/LIDO SWISH SPIT PRN (19:21)
[2016-12-08] MEDS ORDERED: Simethicone CHEW TAB* 80 MG PO PRN (19:21)
[2016-12-08] MEDS ORDERED: fentaNYL PATCHs 100 MCG/HR TRANSDERM SCH (20:00)
--- NOTE | 2016-12-08 20:39 | RAD ---
INDICATION: Nausea and abdominal pain COMPARISON: KUB dated November 21, 2016 TECHNIQUE: 3 views the abdomen were obtained. FINDINGS: Again seen are numerous surgical clips overlying the abdomen. The partially visualized left Mediport terminates at the cavoatrial junction. There are no acute bony or soft tissue abnormalities. The bowel gas pattern is normal. Hyperdense material in the distal colon is likely prior oral contrast. There is no free air seen beneath the diaphragm. There are no obvious coarse calcifications overlying the expected location of the bilateral collecting systems or ureters. IMPRESSION: POSTOPERATIVE FINDINGS DESCRIBED ABOVE WITHOUT PATHOLOGICALLY DILATED BOWEL OR EVIDENCE OF FREE INTRAPERITONEAL AIR.
[2016-12-08] MEDS: Atenolol TAB* 25 MG PO SCH (21:04)
[2016-12-08] MEDS: Docusate CAP* 100 MG PO SCH (21:04)
[2016-12-08] MEDS: oxyCODONE TAB* 5 MG TAB PO PRN (21:04)
[2016-12-08] MEDS: Citalopram TAB* 10 MG PO SCH (21:04)
[2016-12-08] MEDS: Scopolamine 1.5 mg* PATCH TRANSDERM SCH (21:05)
[2016-12-08] MEDS: Enoxaparin(*) 40 MG/0.4 ML SYR SUBCUT SCH (21:10)
[2016-12-08] MEDS ORDERED: PROCHLORPERAZINE INJ 5 MG/ML 2 ML VIAL IV PRN (22:33)
[2016-12-08] MEDS: Ondansetron INJ* 2 MG/ML VIAL IV PRN (22:46)
--- NOTE | 2016-12-09 03:50 | HP ---
HISTORY AND PHYSICAL: DATE OF ADMISSION: 12/08/16 TIME OF EVALUATION: 6:45 p.m. PRIMARY CARE PHYSICIAN: Dr. Grimaldo. ONCOLOGIST: Dr. Yao. CONSULTING ONCOLOGIST: Dr. Barry. CHIEF COMPLAINT: Abdominal pain. HISTORY OF PRESENT ILLNESS: Ms. Gordillo is a 71-year-old lady with a past medical history of metastatic colon adenocarcinoma, hypothyroidism, hypertension , peripheral vascular disease, who was recently admitted to the oncology service from 11/22/16 to 12/01/16 due to severe abdominal pain. At that time, she came to the emergency room with complaints of severe upper abdominal pain and a CT of the abdomen and pelvis revealed omental caking. She had a biopsy done during the admission that was positive for metastatic adenocarcinoma compatible with high-grade colorectal carcinoma. She received aggressive chemotherapy at that time and was discharged home on 12/01/16 on an aggressive bowel regimen. The patient states that for the first 2 days she was feeling well, but after that she started to have severe abdominal pain again associated with constipation and nausea. She denies vomiting ,but admits to very poor oral intake at home. She was using her usual laxatives and states that yesterday she had a fleet enema and also used a suppository and she was finally able to have a large bowel movement last night and initially she thought her symptoms would improve but actually today she felt worse. The pain was uncontrollable and that prompted her ED visit. The patient will be admitted for intractable abdominal pain treatment. She denies fever, chills. No vomiting. No urinary complaints. PAST MEDICAL HISTORY: 1. Metastatic colon adenocarcinoma. 2. Coronary artery disease versus Takotsubo syndrome. 3. Hypertension. 4. Peripheral vascular disease. 5. AAA, status post repair in January 2015 in [facility]. MEDICATIONS: 1. Aspirin 81 mg p.o. daily. 2. Atenolol 25 mg p.o. at bedtime. 3. Atorvastatin 40 mg p.o. daily. 4. Citalopram 10 mg p.o. at bedtime. 5. Colace 100 mg p.o. b.i.d. 6. Nexium 40 mg p.o. daily. 7. Fentanyl patch 100 mcg topical q.72 hours. 8. Lactulose 30 mL p.o. t.i.d. as needed for constipation. 9. Levothyroxine 125 mcg p.o. daily. 10. Magic mouthwash 10 mL swish and spit 4 times a day as needed for mouth sores. 11. Movantik 25 mg p.o. q.p.m. 12. Zofran 4 mg p.o. q.6 hours p.r.n. nausea/vomiting. 13. Biotene 5 mL p.o. daily as needed for dry mouth. 14. Oxybutynin 15 mg p.o. daily. 15. Oxycodone 10 mg p.o. q.4 hours as needed for pain. 16. Scopolamine patch topical q.72 hours. 17. Simethicone 80 mg p.o. q.4 hours p.r.n. gas. 18. Tizanidine 4 mg p.o. b.i.d. as needed for muscle spasms. ALLERGIES: To ADHESIVE TAPE. FAMILY HISTORY: Father of myocardial infarction. Mother of a gynecological cancer. 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 She is , has 2 children. She has a very remote history of tobacco abuse. No history of any drug use. Occasionally, she drinks alcohol. Surrogate decision maker is her son, Herbie Dill, phone number is [phone]. REVIEW OF SYSTEMS: A 14-point review of systems was performed and all the pertinent negative and positive findings are in the HPI. PHYSICAL EXAMINATION GENERAL: The patient is a pleasant elderly lady lying in bed, in no acute distress. VITAL SIGNS: Temperature 98.0, heart rate is 73, respiratory rate is 20, oxygen saturation is 100% on room air, blood pressure is 126/63. HEENT: Pupils are equal. Moist mucous membranes. CHEST: Breath sounds present bilaterally with no added sounds. CVS: Normal S1, S2. Regular rate and rhythm. ABDOMEN: Obese, soft, nondistended. There is epigastric and right upper quadrant tenderness. No guarding, no rebound. Bowel sounds are present, but of note is the fact that the patient received 2 mg of Dilaudid prior to my examination and is feeling improved and is feeling better during my interview. EXTREMITIES: No edema. NEUROLOGIC: She is alert, awake and oriented x3. Able to move all 4 extremities. LABORATORY AND IMAGING DATA: The patient had a CBC that showed WBC of 5, hemoglobin of 12.6, hematocrit of 38, platelets of 146 with 65% neutrophils. Chemistry showed a sodium of 138, potassium of 3.5, chloride of 103, bicarb of 25, BUN of 25, creatinine of 0.81, glucose of 90, and lactic acid of 1.2. LFTs are normal. CRP is 26. No imaging study was performed today so far. ASSESSMENT AND PLAN: Ms. Gordillo is a 71-year-old lady with a past medical history of hypothyroidism, hypertension, peripheral vascular disease, who was recently admitted with intractable abdominal pain, found to have metastatic colon adenocarcinoma, who presented to the emergency room with complaints of worsening abdominal pain. 1. Intractable abdominal pain. I believe this is likely secondary to her omental disease. She does not appear to be obstructed at this time as she had a bowel movement last night, she is passing flatus, her abdomen is soft and nondistended. In any case, partial small bowel obstruction is a possibility, so she is going to have a KUB and depending on that result, we may pursue another CT of the abdomen and pelvis. The patient will be admitted for treatment of intractable abdominal pain. I am going to continue oxycodone and fentanyl and add Dilaudid as she has responded well to it in the emergency room. I am going to hold Movantik for now until we rule out obstruction. An oncology consultation was requested with Dr. Barry as I believe the plan is to continue with chemotherapy this week. 2. DVT prophylaxis. The patient has a score of 5 on the DVT Prophylaxis Risk Assessment Guide and she will be started on Lovenox. 3. Code status. The patient is a Do Not Resuscitate and her MOLST form is in the chart. TIME SPENT: Approximately 50 minutes was spent with the patient interview, medical records review, physical examination to complete the admission and more than half of this time spent [id number] with the patient and coordination of care. CC: Dr. Grimaldo; Dr. Yao; Dr. Barry * [id number]/[facility] #: [id number] [facility]
[2016-12-09] MEDS: Levothyroxine TAB* 125 MCG TAB PO SCH (05:38)
[2016-12-09] MEDS: oxyCODONE TAB* 5 MG TAB PO PRN (05:40)
[2016-12-09 05:42] LABS: Hematocrit 33 % (35-47); Hemoglobin 10.9 g/dl (12.0-16.0); Mean Corpuscular HGB Conc 33 g/dl (31-36); Mean Corpuscular Hemoglobin 33 pg (27-31); Mean Corpuscular Volume 100 fL (80-97); Mean Platelet Volume 7 um3 (7.4-10.4); Red Blood Count 3.31 10^6/ul (4.0-5.4); Red Cell Distribution Width 14 % (10.5-15); White Blood Count 4.2 10^3/ul (3.5-10.8)
[2016-12-09 05:54] LABS: Calcium 8.1 mg/dL (8.6-10.3); EGFR African American 97.7 (>60); Potassium 3.6 mmol/L (3.5-5.0)
[2016-12-09] MEDS: fentaNYL Patch Check Q Shift 1 NOTE SCH ×2 (06:44→19:14)
[2016-12-09] MEDS: Omeprazole CAP* 20 MG PO SCH (07:42)
[2016-12-09] MEDS: Atorvastatin* 40 MG TAB PO SCH (07:42)
[2016-12-09] MEDS: Docusate CAP* 100 MG PO SCH ×2 (07:42→20:03)
[2016-12-09] MEDS: Oxybutynin TAB* 5 MG PO SCH (07:42)
[2016-12-09] MEDS: Aspirin EC Low Dose* 81 MG TAB.EC PO SCH (07:42)
[2016-12-09] MEDS: HYDROmorphone* 1 MG/ML 1 ML SYR IV SLOW PU PRN ×3 (07:54→18:15)
[2016-12-09 08:19] LABS: Urine Bacteria 3+ (Absent); Urine Bilirubin Negative (Negative); Urine Glucose Negative (Negative); Urine Nitrite Positive (Negative)
[2016-12-09] MEDS: Citalopram TAB* 10 MG PO SCH (20:03)
[2016-12-09] MEDS: Atenolol TAB* 25 MG PO SCH (20:03)
[2016-12-09] MEDS: Ciprofloxacin TAB* 500 MG PO SCH (20:03)
[2016-12-09] MEDS: Enoxaparin(*) 40 MG/0.4 ML SYR SUBCUT SCH (20:04)
[2016-12-10] MEDS: HYDROmorphone* 1 MG/ML 1 ML SYR IV SLOW PU PRN ×2 (00:02→19:22)
[2016-12-10] MEDS: Levothyroxine TAB* 125 MCG TAB PO SCH (05:38)
[2016-12-10] MEDS: Docusate CAP* 100 MG PO SCH ×2 (07:32→19:26)
[2016-12-10] MEDS: Oxybutynin TAB* 5 MG PO SCH (07:32)
[2016-12-10] MEDS: Atorvastatin* 40 MG TAB PO SCH (07:32)
[2016-12-10] MEDS: oxyCODONE TAB* 5 MG TAB PO PRN (07:32)
[2016-12-10] MEDS: Ciprofloxacin TAB* 500 MG PO SCH ×2 (07:33→20:36)
[2016-12-10] MEDS: Omeprazole CAP* 20 MG PO SCH (07:33)
[2016-12-10] MEDS: fentaNYL Patch Check Q Shift 1 NOTE SCH ×2 (07:33→18:46)
[2016-12-10] MEDS: Aspirin EC Low Dose* 81 MG TAB.EC PO SCH (07:33)
[2016-12-10] MEDS: Ondansetron INJ* 2 MG/ML VIAL IV PRN (07:42)
[2016-12-10 08:49] LABS: Hematocrit 32 % (35-47); Hemoglobin 10.3 g/dl (12.0-16.0); Mean Corpuscular HGB Conc 32 g/dl (31-36); Mean Corpuscular Hemoglobin 32 pg (27-31); Mean Corpuscular Volume 100 fL (80-97); Mean Platelet Volume 7 um3 (7.4-10.4); Red Blood Count 3.22 10^6/ul (4.0-5.4); Red Cell Distribution Width 14 % (10.5-15); White Blood Count 2.1 10^3/ul (3.5-10.8)
[2016-12-10 09:02] LABS: Add Diff/Slide Review? Slide Review Added; Comments Flag Yes
[2016-12-10 09:05] LABS: BUN/Creatinine Ratio 26.3 (8-20); Calcium 8.4 mg/dL (8.6-10.3); EGFR African American 96.2 (>60); EGFR Non-African American 74.8 (>60); Potassium 3.3 mmol/L (3.5-5.0)
--- NOTE | 2016-12-10 10:32 | PN ---
Progress Note - Progress Note SOAP: Subjective: multiple bowel movements yesterday and overall feels better, though abdominal pain still 8/10 at times. unclear why she was not discharged on dilaudid as it was working in the hospital. she is interested in trying this again. UA from yesterday very dirty. started on cipro. mild dysuria. mild constant nausea that she relates to her abdominal pain. Objective: Vital Signs Temp Pulse Resp BP Pulse Ox 97.3 F 58 18 92/48 100 12/10/16 07:24 12/10/16 07:24 12/10/16 08:00 12/10/16 07:24 12/10/16 07:24 sitting up, comfortable as long as she does not move, very uncomfortable appearing on movement perr eomi op dry CTA bl s1 s2 nl softer, tender throughout but no guarding no le edema A+O x 3 nonfocal neurological exam Laboratory Results - last 24 hr 12/10/16 12/10/16 08:37 08:37 WBC 2.1 L RBC 3.22 L Hgb 10.3 L Hct 32 L MCV 100 H MCH 32 H MCHC 32 RDW 14 Plt Count 151 MPV 7 L Neut % (Auto) 25.8 L Lymph % (Auto) 54.9 H [place] % (Auto) 13.1 H Eos % (Auto) 5.6 Baso % (Auto) 0.6 Absolute Neuts (auto) 0.5 L Absolute Lymphs (auto) 1.1 Absolute Monos (auto) 0.3 Absolute Eos (auto) 0.1 Absolute Basos (auto) 0 Absolute Nucleated RBC 0 Nucleated RBC % 0 Sodium 137 Potassium 3.3 L Chloride 111 Carbon Dioxide 26 Anion Gap 0 L BUN 20 Creatinine 0.76 Est GFR ( Amer) 96.2 Est GFR (Non-Af Amer) 74.8 BUN/Creatinine Ratio 26.3 H Glucose 92 Calcium 8.4 L Aspirin (Aspirin Ec Low Dose*) 81 mg PO DAILY [facility] Last Admin: 12/10/16 07:33 Dose: 81 mg Atenolol (Tenormin Tab*) 25 mg PO BEDTIME [facility] Last Admin: 12/09/16 20:03 Dose: 25 mg Atorvastatin Calcium (Lipitor*) 40 mg PO DAILY [facility] Last Admin: 12/10/16 07:32 Dose: 40 mg Ciprofloxacin (Cipro Tab*) 500 mg PO Q12HR [facility] Last Admin: 12/10/16 07:33 Dose: 500 mg Citalopram Hydrobromide (Celexa Tab*) 10 mg PO BEDTIME [facility] Last Admin: 12/09/16 20:03 Dose: 10 mg Docusate Sodium (Colace Cap*) 100 mg PO BID [facility] Last Admin: 12/10/16 07:32 Dose: 100 mg Enoxaparin Sodium (Lovenox(*)) 40 mg SUBCUT Q24H [facility] Last Admin: 12/09/16 20:04 Dose: 40 mg Fentanyl (Duragesic Patch 100 Mcg/Hr *) 100 mcg TRANSDERM Q72H [facility] Last Admin: 12/08/16 21:06 Dose: 100 mcg Hydromorphone HCl (Dilaudid Iv*) 1 mg IV SLOW PU Q2H PRN PRN Reason: SEVERE PAIN Last Admin: 12/10/16 00:02 Dose: 1 mg Lactulose (Lactulose*) 30 ml PO QID [facility] Last Admin: 12/10/16 07:37 Dose: Not Given Levothyroxine Sodium (Synthroid Tab*) 125 mcg PO DAILY@0600 [facility] Last Admin: 12/10/16 05:38 Dose: 125 mcg Multi-Ingredient Mouthwash/Gargle (Magic Mouth Was-Phuc/Maal/Lido*) 10 ml SWISH SPIT QID PRN PRN Reason: MOUTH SORES/XEROSTOMIA Multi-Ingredient Mouthwash/Gargle (Biotene Dry Mouth Oral Rinse(Nf)) 5 ml MT DAILY PRN PRN Reason: PER PROTOCOL Omeprazole (Prilosec Cap*) 20 mg PO DAILY@0730 [facility] PRN Reason: Protocol Last Admin: 12/10/16 07:33 Dose: 20 mg Ondansetron HCl (Zofran Inj*) 4 mg IV Q6H PRN PRN Reason: NAUSEA Last Admin: 12/10/16 07:42 Dose: 4 mg Oxybutynin Chloride (Ditropan Tab*) 15 mg PO DAILY [facility] Last Admin: 12/10/16 07:32 Dose: 15 mg Oxycodone HCl (Roxycodone Tab*) 10 mg PO Q4H PRN PRN Reason: PAIN - BREAKTHROUGH Last Admin: 12/10/16 07:32 Dose: 10 mg Pharmacy Profile Note (Fentanyl Patch Check Q Shift) 1 note N/A 0700,1900 [facility] Last Admin: 12/10/16 07:33 Dose: 1 note Prochlorperazine Edisylate (Compazine Inj*) 10 mg IV Q6H PRN PRN Reason: NAUSEA/VOMITING Scopolamine (Transderm-Scop 1.5 Mg Patch*) 1 patch TRANSDERM Q72H [facility] Last Admin: 12/08/16 21:05 Dose: Not Given Simethicone (Mylicon*) 80 mg PO Q4H PRN PRN Reason: GAS Assessment: 71 yo F w metastatic CRC, KRAS mutant, MSI unstable, recently started on palliative FOLFIRI (due for cycle 2 tomorrow) presenting with recurrent uncontrolled abdominal pain related to constipation AND omental implants. Newly neutropenic today. Plan: -restart PO dilaudid -PRN IV dilaudid -cont fentanyl, if pain not controlled tomorrow will increase to 150 mcg neutropenia: late for treatment related. hypotensive and has a UTI as well, meeting SIRS criteria -fluid bolus -stat lactic acid -blood cultures, follow up urine culture from yesterday -neutropenic precautions -hold off on starting chemo until stable hypokalemia: ?related to multiple BMs yesterday and GI loss -replete PO BID -check magnesium DNR
[2016-12-10] MEDS ORDERED: Lidocaine 2.5%/Prilocain 2.5%* 5 GM TUBE TOPICAL PRN (10:36)
[2016-12-10] MEDS ORDERED: Lidocaine 2.5%/Prilocain 2.5%* 5 GM TUBE ONE (10:38)
[2016-12-10] MEDS: NS 0.9% 1000 ML* 1,000 ML IV SCH ×2 (10:48→17:10)
[2016-12-10] MEDS: Potassium Chlor TAB* 20 MEQ TAB.ER PO SCH ×2 (11:08→20:36)
[2016-12-10 11:12] LABS: Magnesium 2.2 mg/dL (1.9-2.7)
[2016-12-10] MEDS: Enoxaparin(*) 40 MG/0.4 ML SYR SUBCUT SCH (19:21)
[2016-12-10] MEDS: Citalopram TAB* 10 MG PO SCH (20:36)
[2016-12-11] MEDS: NS 0.9% 1000 ML* 1,000 ML IV SCH ×4 (00:33→21:19)
[2016-12-11] MEDS: Levothyroxine TAB* 125 MCG TAB PO SCH (05:31)
[2016-12-11 05:52] LABS: Hematocrit 29 % (35-47); Hemoglobin 9.6 g/dl (12.0-16.0); Mean Corpuscular HGB Conc 33 g/dl (31-36); Mean Corpuscular Hemoglobin 33 pg (27-31); Mean Corpuscular Volume 100 fL (80-97); Mean Platelet Volume 7 um3 (7.4-10.4); Red Blood Count 2.92 10^6/ul (4.0-5.4); Red Cell Distribution Width 14 % (10.5-15)
[2016-12-11 05:54] LABS: Comments Flag Yes; White Blood Count 2.2 10^3/ul (3.5-10.8)
[2016-12-11 06:10] LABS: Albumin 3.1 g/dL (3.2-5.2); Calcium 8.1 mg/dL (8.6-10.3); EGFR African American 117.3 (>60); EGFR Non-African American 91.2 (>60); Globulin 2.2 g/dL (2-4); Potassium 3.5 mmol/L (3.5-5.0); Total Bilirubin 0.4 mg/dL (0.2-1.0); Total Protein 5.3 g/dL (6.4-8.9)
[2016-12-11] MEDS: fentaNYL Patch Check Q Shift 1 NOTE SCH ×2 (06:52→19:22)
[2016-12-11] MEDS: Potassium Chlor TAB* 20 MEQ TAB.ER PO SCH ×2 (08:50→20:33)
[2016-12-11] MEDS: Atorvastatin* 40 MG TAB PO SCH (08:50)
[2016-12-11] MEDS: Ciprofloxacin TAB* 500 MG PO SCH ×2 (08:50→20:33)
[2016-12-11] MEDS: Oxybutynin TAB* 5 MG PO SCH (08:50)
[2016-12-11] MEDS: Omeprazole CAP* 20 MG PO SCH (08:51)
[2016-12-11] MEDS: Aspirin EC Low Dose* 81 MG TAB.EC PO SCH (08:51)
[2016-12-11] MEDS ORDERED: fentaNYL PATCHs 100 MCG/HR TRANSDERM SCH (09:00)
[2016-12-11] MEDS ORDERED: fentaNYL PATCH 50 MCG/HR TRANSDERM SCH (09:00)
--- NOTE | 2016-12-11 09:17 | PN ---
Progress Note - Progress Note SOAP: Subjective: feeling better overall this am. multiple, multiple bowel movements. loose. cathartics held. abdominal pain definitely better with clearing out of stool, but still quite tender if she moves and she feels a bit dehydrated today from all of the BMs. Objective: Vital Signs Temp Pulse Resp BP Pulse Ox 97.6 F 57 17 112/65 100 12/11/16 04:22 12/11/16 04:22 12/11/16 04:22 12/11/16 04:22 12/11/16 04:22 sitting up in NAD if she does not move op slightly dry perr eomi CTA bl s1 s2 nl softer, tender over ruq no le edema A+O x 3, nonfocal neurological exam Laboratory Results - last 24 hr 12/10/16 12/10/16 12/11/16 08:37 11:30 05:29 WBC 2.2 L RBC 2.92 L Hgb 9.6 L Hct 29 L MCV 100 H MCH 33 H MCHC 33 RDW 14 Plt Count 163 MPV 7 L Neut % (Auto) 24.3 L Lymph % (Auto) 57.6 H [place] % (Auto) 11.4 H Eos % (Auto) 6.0 Baso % (Auto) 0.7 Absolute Neuts (auto) 0.5 L Absolute Lymphs (auto) 1.3 Absolute Monos (auto) 0.3 Absolute Eos (auto) 0.1 Absolute Basos (auto) 0 Absolute Nucleated RBC 0 Nucleated RBC % 0.1 Sodium Potassium Chloride Carbon Dioxide Anion Gap BUN Creatinine Est GFR ( Amer) Est GFR (Non-Af Amer) BUN/Creatinine Ratio Glucose Lactic Acid 0.8 Calcium Magnesium 2.2 Total Bilirubin AST ALT Alkaline Phosphatase Total Protein Albumin Globulin Albumin/Globulin Ratio 12/11/16 05:29 WBC RBC Hgb Hct MCV MCH MCHC RDW Plt Count MPV Neut % (Auto) Lymph % (Auto) [place] % (Auto) Eos % (Auto) Baso % (Auto) Absolute Neuts (auto) Absolute Lymphs (auto) Absolute Monos (auto) Absolute Eos (auto) Absolute Basos (auto) Absolute Nucleated RBC Nucleated RBC % Sodium 144 Potassium 3.5 Chloride 114 H Carbon Dioxide 22 Anion Gap 8 BUN 16 Creatinine 0.64 Est GFR ( Amer) 117.3 Est GFR (Non-Af Amer) 91.2 BUN/Creatinine Ratio 25.0 H Glucose 78 Lactic Acid Calcium 8.1 L Magnesium 2.0 Total Bilirubin 0.40 AST 12 L ALT 6 L Alkaline Phosphatase 54 Total Protein 5.3 L Albumin 3.1 L Globulin 2.2 Albumin/Globulin Ratio 1.4 Aspirin (Aspirin Ec Low Dose*) 81 mg PO DAILY [facility] Last Admin: 12/11/16 08:51 Dose: 81 mg Atorvastatin Calcium (Lipitor*) 40 mg PO DAILY [facility] Last Admin: 12/11/16 08:50 Dose: 40 mg Ciprofloxacin (Cipro Tab*) 500 mg PO Q12HR [facility] Last Admin: 12/11/16 08:50 Dose: 500 mg Citalopram Hydrobromide (Celexa Tab*) 10 mg PO BEDTIME [facility] Last Admin: 12/10/16 20:36 Dose: 10 mg Enoxaparin Sodium (Lovenox(*)) 40 mg SUBCUT Q24H [facility] Last Admin: 12/10/16 19:21 Dose: 40 mg Fentanyl (Duragesic Patch 100 Mcg/Hr *) 100 mcg TRANSDERM Q72H [facility] Fentanyl (Duragesic Patch 50 Mcg/Hr*) 50 mcg TRANSDERM Q72H [facility] Hydromorphone HCl (Dilaudid Iv*) 1 mg IV SLOW PU Q2H PRN PRN Reason: SEVERE PAIN Last Admin: 12/10/16 19:22 Dose: 1 mg Hydromorphone HCl (Dilaudid Tab*) 6 mg PO Q6H PRN PRN Reason: PAIN Sodium Chloride (Ns 0.9% 1000 Ml*) 1,000 mls @ 150 mls/hr IV PER RATE [facility] Last Admin: 12/11/16 07:52 Dose: 150 mls/hr Levothyroxine Sodium (Synthroid Tab*) 125 mcg PO DAILY@0600 [facility] Last Admin: 12/11/16 05:31 Dose: 125 mcg Lidocaine/Prilocaine (Emla 5 Gm*) 1 applic TOPICAL ONCE PRN PRN Reason: pain Multi-Ingredient Mouthwash/Gargle (Magic Mouth Was-Phuc/Maal/Lido*) 10 ml SWISH SPIT QID PRN PRN Reason: MOUTH SORES/XEROSTOMIA Multi-Ingredient Mouthwash/Gargle (Biotene Dry Mouth Oral Rinse(Nf)) 5 ml MT DAILY PRN PRN Reason: PER PROTOCOL Omeprazole (Prilosec Cap*) 20 mg PO DAILY@0730 [facility] PRN Reason: Protocol Last Admin: 12/11/16 08:51 Dose: 20 mg Ondansetron HCl (Zofran Inj*) 4 mg IV Q6H PRN PRN Reason: NAUSEA Last Admin: 12/10/16 07:42 Dose: 4 mg Oxybutynin Chloride (Ditropan Tab*) 15 mg PO DAILY [facility] Last Admin: 12/11/16 08:50 Dose: 15 mg Pharmacy Profile Note (Fentanyl Patch Check Q Shift) 1 note N/A 0700,1900 [facility] Last Admin: 12/11/16 06:52 Dose: 1 note Potassium Chloride (Klor Con Er Tab*) 20 meq PO BID [facility] Last Admin: 12/11/16 08:50 Dose: 20 meq Prochlorperazine Edisylate (Compazine Inj*) 10 mg IV Q6H PRN PRN Reason: NAUSEA/VOMITING Last Admin: 12/10/16 14:43 Dose: 10 mg Scopolamine (Transderm-Scop 1.5 Mg Patch*) 1 patch TRANSDERM Q72H [facility] Last Admin: 12/08/16 21:05 Dose: Not Given Simethicone (Mylicon*) 80 mg PO Q4H PRN PRN Reason: GAS Assessment: 71 yo F w metastatic CRC, KRAS mutant, on palliative FOLFIRI, sp cycle 1 day 15 , admitted with worsening abdominal pain in the setting of omental implants and severe constipation. Her bowels are fairly clear now, and her abdominal pain is better, though still not close to ideally controlled (7/10 with any movement) . Unfortunately she is also now neutropenic for unclear reasons (past her dyana and not neutropenic on admission). Plan: Abd pain: increase fentanyl to 150 mcg daily cont PRN dilaudid PO and IV constipation: resolved, with very loose stools. will need to monitor closely and add back in her colace and movantik tomorrow nausea: still a near constant issue. on scopalamine, zofran and compazine (added by hospitalists). will stop compazine given interaction with scop patch. will add low dose ativan as may help with pain too Hypokalemia: likely from diarrhea on BID now will add some IV today neutropenia: late for chemo, though certainly could be. also clearly had a UTI and SIRS yesterday, improved with fluids and antibiotics e coli growing on urine, sensitive to cipro, will continue neutropenic precautions can not resume chemo until counts recover ?irregular heart beat by nursing: ekg my interpretation, sinus mimi, no irregularity dnr
[2016-12-11] MEDS ORDERED: LORazepam TAB(*) 0.5 MG PO PRN (09:19)
[2016-12-11] MEDS: KCL 20 MEQ/100 ML IVPREMIX* 20 MEQ/100 ML BAG IV SCH ×2 (10:07→13:21)
[2016-12-11] MEDS: HYDROmorphone* 1 MG/ML 1 ML SYR IV SLOW PU PRN ×2 (17:34→21:13)
[2016-12-11] MEDS: Ondansetron INJ* 2 MG/ML VIAL IV PRN (17:39)
[2016-12-11] MEDS: Scopolamine 1.5 mg* PATCH TRANSDERM SCH (20:33)
[2016-12-11] MEDS: Citalopram TAB* 10 MG PO SCH (20:33)
[2016-12-11] MEDS: Enoxaparin(*) 40 MG/0.4 ML SYR SUBCUT SCH (20:34)
[2016-12-11] MEDS: Docusate CAP* 100 MG PO SCH (23:50)
[2016-12-12] MEDS: NS 0.9% 1000 ML* 1,000 ML IV SCH ×3 (04:53→18:17)
[2016-12-12] MEDS: Levothyroxine TAB* 125 MCG TAB PO SCH (05:58)
[2016-12-12] MEDS: HYDROmorphone TAB* 2 MG PO PRN (06:02)
[2016-12-12] MEDS: fentaNYL Patch Check Q Shift 1 NOTE SCH ×2 (07:00→19:43)
[2016-12-12] MEDS: Omeprazole CAP* 20 MG PO SCH (07:40)
[2016-12-12] MEDS: HYDROmorphone* 1 MG/ML 1 ML SYR IV SLOW PU PRN ×2 (09:05→18:17)
[2016-12-12] MEDS: Docusate CAP* 100 MG PO SCH ×2 (09:06→20:53)
[2016-12-12] MEDS: Oxybutynin TAB* 5 MG PO SCH (09:06)
[2016-12-12] MEDS: Atorvastatin* 40 MG TAB PO SCH (09:07)
[2016-12-12] MEDS: Ciprofloxacin TAB* 500 MG PO SCH ×2 (09:07→20:52)
[2016-12-12] MEDS: Potassium Chlor TAB* 20 MEQ TAB.ER PO SCH ×2 (09:07→20:53)
[2016-12-12] MEDS: Aspirin EC Low Dose* 81 MG TAB.EC PO SCH (09:07)
[2016-12-12 09:51] LABS: Hematocrit 30 % (35-47); Hemoglobin 9.8 g/dl (12.0-16.0); Mean Corpuscular HGB Conc 33 g/dl (31-36); Mean Corpuscular Hemoglobin 33 pg (27-31); Mean Corpuscular Volume 100 fL (80-97); Mean Platelet Volume 7 um3 (7.4-10.4); Red Cell Distribution Width 14 % (10.5-15)
[2016-12-12 09:52] LABS: Comments Flag Yes
[2016-12-12 09:53] LABS: White Blood Count 2.2 10^3/ul (3.5-10.8)
[2016-12-12 09:54] LABS: Add Diff/Slide Review? Slide Review Added
[2016-12-12 09:55] LABS: Albumin 2.9 g/dL (3.2-5.2); BUN/Creatinine Ratio 11.9 (8-20); EGFR African American 111.3 (>60); EGFR Non-African American 86.5 (>60); Globulin 2.3 g/dL (2-4); Potassium 3.8 mmol/L (3.5-5.0); Total Bilirubin 0.3 mg/dL (0.2-1.0); Total Protein 5.2 g/dL (6.4-8.9)
[2016-12-12] MEDS: Citalopram TAB* 10 MG PO SCH (20:52)
[2016-12-12] MEDS: Enoxaparin(*) 40 MG/0.4 ML SYR SUBCUT SCH (20:54)
[2016-12-12] MEDS: Ondansetron INJ* 2 MG/ML VIAL IV PRN (20:55)
[2016-12-13] MEDS: NS 0.9% 1000 ML* 1,000 ML IV SCH ×2 (01:43→07:40)
[2016-12-13] MEDS: HYDROmorphone TAB* 2 MG PO PRN (06:38)
[2016-12-13] MEDS: Levothyroxine TAB* 125 MCG TAB PO SCH (06:38)
[2016-12-13] MEDS: Omeprazole CAP* 20 MG PO SCH (06:40)
[2016-12-13] MEDS: fentaNYL Patch Check Q Shift 1 NOTE SCH (06:42)
[2016-12-13 08:58] VITALS: BP 120/96
--- NOTE | 2016-12-13 09:00 | PN ---
Progress Note - Progress Note SOAP: Subjective: []Better. Still some abdominal pain but much better then on admission. Pain worse with eating and then slows down. Has diarrhea over past 2 days, 5-10 BM per day since enema. Tolerating Cipro for UTI, urination is fine. She likes the IV pain medication but oral therapy works fine. Aspirin (Aspirin Ec Low Dose*) 81 mg PO DAILY [facility] Last Admin: 12/12/16 09:07 Dose: 81 mg Atorvastatin Calcium (Lipitor*) 40 mg PO DAILY [facility] Last Admin: 12/12/16 09:07 Dose: 40 mg Ciprofloxacin (Cipro Tab*) 500 mg PO Q12HR [facility] Last Admin: 12/12/16 20:52 Dose: 500 mg Citalopram Hydrobromide (Celexa Tab*) 10 mg PO BEDTIME [facility] Last Admin: 12/12/16 20:52 Dose: 10 mg Docusate Sodium (Colace Cap*) 100 mg PO BID [facility] Last Admin: 12/12/16 20:53 Dose: 100 mg Enoxaparin Sodium (Lovenox(*)) 40 mg SUBCUT Q24H [facility] Last Admin: 12/12/16 20:54 Dose: 40 mg Fentanyl (Duragesic Patch 100 Mcg/Hr *) 100 mcg TRANSDERM Q72H [facility] Last Admin: 12/11/16 10:14 Dose: 100 mcg Fentanyl (Duragesic Patch 50 Mcg/Hr*) 50 mcg TRANSDERM Q72H [facility] Last Admin: 12/11/16 10:15 Dose: 50 mcg Hydromorphone HCl (Dilaudid Iv*) 1 mg IV SLOW PU Q2H PRN PRN Reason: SEVERE PAIN Last Admin: 12/12/16 18:17 Dose: 1 mg Hydromorphone HCl (Dilaudid Tab*) 6 mg PO Q6H PRN PRN Reason: PAIN Last Admin: 12/13/16 06:38 Dose: 6 mg Sodium Chloride (Ns 0.9% 1000 Ml*) 1,000 mls @ 150 mls/hr IV PER RATE [facility] Last Admin: 12/13/16 07:40 Dose: 150 mls/hr Levothyroxine Sodium (Synthroid Tab*) 125 mcg PO DAILY@0600 [facility] Last Admin: 12/13/16 06:38 Dose: 125 mcg Lidocaine/Prilocaine (Emla 5 Gm*) 1 applic TOPICAL ONCE PRN PRN Reason: pain Lorazepam (Ativan Tab(*)) 0.5 mg PO Q6H PRN PRN Reason: NAUSEA Multi-Ingredient Mouthwash/Gargle (Magic Mouth Was-Phuc/Maal/Lido*) 10 ml SWISH SPIT QID PRN PRN Reason: MOUTH SORES/XEROSTOMIA Multi-Ingredient Mouthwash/Gargle (Biotene Dry Mouth Oral Rinse(Nf)) 5 ml MT DAILY PRN PRN Reason: PER PROTOCOL Omeprazole (Prilosec Cap*) 20 mg PO DAILY@0730 [facility] PRN Reason: Protocol Last Admin: 12/13/16 06:40 Dose: 20 mg Ondansetron HCl (Zofran Inj*) 4 mg IV Q6H PRN PRN Reason: NAUSEA Last Admin: 12/12/16 20:55 Dose: 4 mg Oxybutynin Chloride (Ditropan Tab*) 15 mg PO DAILY [facility] Last Admin: 12/12/16 09:06 Dose: 15 mg Pharmacy Profile Note (Fentanyl Patch Check Q Shift) 1 note N/A 0700,1900 [facility] Last Admin: 12/13/16 06:42 Dose: 1 note Potassium Chloride (Klor Con Er Tab*) 20 meq PO BID [facility] Last Admin: 12/12/16 20:53 Dose: 20 meq Scopolamine (Transderm-Scop 1.5 Mg Patch*) 1 patch TRANSDERM Q72H [facility] Last Admin: 12/11/16 20:33 Dose: 1 patch Simethicone (Mylicon*) 80 mg PO Q4H PRN PRN Reason: GAS Objective: [] Vital Signs Temp Pulse Resp BP Pulse Ox 97.8 F 70 18 91/40 94 12/13/16 04:28 12/13/16 04:28 12/13/16 06:38 12/13/16 04:28 12/13/16 04:28 HEENT- Mucosa moist. No lesions CTA RRR S1S2 Obese and diffuse tenderness. No masses, no rebount Ext warm, no edema, good pulses. Neuro AAOx3 Assessment: 71 yo F w metastatic CRC, KRAS mutant, on palliative FOLFIRI, sp cycle 1, admitted with worsening abdominal pain in the setting of omental implants and severe constipation. Improved on increased pain medication and now moving bowls. Cycle 2 delayed for prolonged neutropenia. Plan: 1. Abd pain:Better on fentanyl to 150 mcg daily. Will discharge on same and continue oral oxycodone. 2. Constipation. Resolved, with very loose stools. Hold motility agents on discharge but add back if BMs slow down. 3. Nausea. Better and continue Scopalamine, zofran at home, add Ativan 4. Hypokalemia. Stable, follow up in clinc 5. Neutropenia. Late for chemo, though certainly could be. Will continue Cipro at home and follow up CBC in clinc mid next week. 6. Home today
[2016-12-13] MEDS: Potassium Chlor TAB* 20 MEQ TAB.ER PO SCH (09:14)
[2016-12-13] MEDS: Oxybutynin TAB* 5 MG PO SCH (09:14)
[2016-12-13] MEDS: Ciprofloxacin TAB* 500 MG PO SCH (09:14)
[2016-12-13] MEDS: Aspirin EC Low Dose* 81 MG TAB.EC PO SCH (09:14)
[2016-12-13] MEDS: Atorvastatin* 40 MG TAB PO SCH (09:14)
[2016-12-13] MEDS: Docusate CAP* 100 MG PO SCH (09:14)
--- NOTE | 2016-12-13 17:34 | DS ---
CC: Dr. Grimaldo; Dr. Yao DISCHARGE SUMMARY: DATE OF ADMISSION: DATE OF DISCHARGE: DISCHARGE DIAGNOSES: 1. Metastatic colon cancer. 2. Constipation. 3. Abdominal pain. 4. Neutropenia. 5. Hypokalemia. HOSPITAL COURSE: She was admitted on 12/08 only several days after prior discharge on 12/01. She had severe abdominal pain and constipation, no oral intake. She had received FOLFIRI chemotherapy during her last admission. On admission, she was placed on aggressive bowel regimen and ultimately was able to have bowel movements, now having diarrhea. Increased fentanyl from 50 to 150 mcg, which helped and she was on IV pain medicine and doing well on oral Dilaudid. We added Ativan for her nausea and that seemed to help. The patient feels better and feels ready to go home. Other issues during the hospitalization included: 1. Hypokalemia with potassium of 3.3. She was given potassium supplementation and it went to 3.8. 2. She developed neutropenia with an ANC of 500 that has persisted through the hospitalization. That will delay additional chemotherapy. 3. UTI, started Cipro 500 mg bid. At this time, we will send her home with some modifications to her medication. The fentanyl was up from 50 mcg to 150 mcg. We are adding Ativan 0.5 q.6 hours p.r.n nausea. She is going home on ciprofloxacin 500 mg p.o. BID. We will plan on followup next week in clinic with Dr. Yao and check a CBC and potassium at that time. We will decide about further therapy. Additionally, it seems like her nausea and abdominal pain have been after she eats. Given instructions on a low- residual diet and I think that that will help. She is having some diarrhea today and her medications for her constipation are being held, but she is going to restart if the diarrhea stops. DISCHARGE MEDICATIONS: 1. Aspirin 81 mg a day. 2. Lipitor 40 mg a day. 3. Ciprofloxacin 500 mg q.12 hours. 4. Celexa 10 mg daily. 5. Fentanyl patch 150 mcg daily. 6. Oxycodone 10 mg q.4 hours p.r.n. 7. Levothyroxine 125 mg daily. 8. Ativan 0.5 q.6 hours p.r.n. 9. Magic mouthwash 10 mg q.i.d. p.r.n. 10. Omeprazole 20 mg daily. 11. Zofran 4 mg p.o. q.6 hours p.r.n. 12. Ditropan 15 mg daily. 13. Scopolamine 1 patch q.72 hours. 14. Simethicone 80 mg q.4 hours p.r.n. As noted above, return to clinic will be on Thursday. She should call [phone] with any concerns over the weekend. Call for any fever over 100.4. [id number]/[facility] #: [id number] [place]
== END 2016-12-13 12:25 | disposition home or self-care (01) | DRG 375 ==
LOC: ED 15:35 → MED 18:49 → OBSVTOIN 12-10 14:45
PROVIDERS: ADMIT Internal Medicine; ATTEND Internal Medicine Hematology & Oncology
DX: C78.6 Secondary malignant neoplasm of retroperitoneum and peritoneum (principal); C18.9 Malignant neoplasm of colon, unspecified; D70.9 Neutropenia, unspecified; I11.9 Hypertensive heart disease without heart failure; I51.81 Takotsubo syndrome; K59.00 Constipation, unspecified; E87.6 Hypokalemia; G89.3 Neoplasm related pain (acute) (chronic); E03.9 Hypothyroidism, unspecified; I73.9 Peripheral vascular disease, unspecified; I25.10 Atherosclerotic heart disease of native coronary artery without angina pectoris; Z79.82 Long term (current) use of aspirin; Z79.891 Long term (current) use of opiate analgesic; Z79.899 Other long term (current) drug therapy; Z91.048 Other nonmedicinal substance allergy status; Z82.49 Family history of ischemic heart disease and other diseases of the circulatory system; Z80.49 Family history of malignant neoplasm of other genital organs; Z87.891 Personal history of nicotine dependence
CPT/HCPCS: 36415; 74000; 80048; 80053; 81003; 81015; 83605; 83690; 83735; 85025; 85060; 86140; 87040; 87077; 87086; 87186; 93005; 99232; 99233; 99239; A9270-GY; G0378; J0780; J1170; J1650; J2405; J3480

== ENCOUNTER 2017-01-19 09:30 | Inpatient (IN) | payer MEDICARE ==
[2017-01-19] MEDS ORDERED: Ondansetron INJ* 2 MG/ML VIAL IV ONE (10:05)
[2017-01-19] MEDS ORDERED: HYDROmorphone* 1 MG/ML 1 ML SYR IV ONE (10:17)
[2017-01-19] MEDS: NS 0.9% 1000 ML* 2,000 ML IV ONE (10:18)
[2017-01-19 10:21] LABS: Hematocrit 38 % (35-47); Hemoglobin 12.3 g/dl (12.0-16.0); Mean Corpuscular HGB Conc 32 g/dl (31-36); Mean Corpuscular Hemoglobin 31 pg (27-31); Mean Corpuscular Volume 97 fL (80-97); Mean Platelet Volume 8 um3 (7.4-10.4); Red Blood Count 3.98 10^6/ul (4.0-5.4); Red Cell Distribution Width 15 % (10.5-15); White Blood Count 9.2 10^3/ul (3.5-10.8)
[2017-01-19 10:35] LABS: Albumin 3.3 g/dL (3.2-5.2); BUN/Creatinine Ratio 24.5 (8-20); C Reactive Protein 36.95 mg/L (< 5.00); Calcium 9.3 mg/dL (8.6-10.3); EGFR African American 75.3 (>60); EGFR Non-African American 58.5 (>60); Globulin 3.3 g/dL (2-4); Total Bilirubin 0.5 mg/dL (0.2-1.0); Total Protein 6.6 g/dL (6.4-8.9)
[2017-01-19] MEDS ORDERED: Iodixanol* (CONTRAST) 320 MG/ML 100 ML SDV IV ONE (12:34)
[2017-01-19 14:10] LABS: Manual Entry Verification AS; UR Preg Internal Control QC Line Present; UR Preg Kit Lot# 7010135
--- NOTE | 2017-01-19 14:11 | RAD ---
CLINICAL HISTORY: Abdominal pain, vomiting, colon cancer COMPARISON: November 16, 2016 TECHNIQUE: Multiple contiguous axial CT scans were obtained of the abdomen and pelvis after the administration of intravenous contrast. Coronal and sagittal multiplanar reformations are submitted for review. Oral contrast was administered. Delayed images were obtained through the abdomen and pelvis. FINDINGS: LUNG BASES: There is bibasilar dependent atelectasis LIVER: The liver is diffusely low in attenuation compared to the spleen. There are no focal hepatic parenchymal masses. BILE DUCTS: There is no intrahepatic or extrahepatic biliary dilatation. GALLBLADDER: The gallbladder is normal, without pericholecystic inflammatory change. PANCREAS: The pancreas is normal, without mass or ductal dilatation. SPLEEN: Normal in size and appearance. UPPER GI TRACT: Evaluation of the gastrointestinal tract is limited by incomplete gastric distention. The upper GI tract is unremarkable. SMALL BOWEL AND MESENTERY: The small bowel is normal in contour, course, and caliber. There is no obstruction or dilatation. Again noted is peritoneal and omental nodularity, progressed from the previous examination. COLON: The patient is status post partial colectomy. ADRENALS: Normal bilaterally. KIDNEYS: There is a stable calcified cystic lesion of the midpole of the right kidney. BLADDER: The bladder is smooth in contour. PELVIC ORGANS: The pelvic organs are not visualized. AORTA: The patient appears to be status post aortic bypass graft. IVC: Unremarkable LYMPH NODES: There is no lymphadenopathy by size criteria. ABDOMINAL WALL: There is no evidence for abdominal wall hernia. BONES AND SOFT TISSUES: Degenerative changes are noted OTHER: There is a small amount of ascites IMPRESSION: 1. 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 2. STATUS POST PARTIAL COLECTOMY. 3. FATTY LIVER
[2017-01-19] MEDS ORDERED: HYDROmorphone* 2 MG/ML 1 ML SYR IV SLOW PU ONE (14:54)
[2017-01-19] MEDS ORDERED: LORazepam TAB(*) 0.5 MG PO PRN (15:10)
[2017-01-19] MEDS ORDERED: HYDROmorphone TAB* 2 MG PO PRN (15:10)
[2017-01-19] MEDS ORDERED: Simethicone CHEW TAB* 80 MG PO PRN (15:10)
[2017-01-19] MEDS ORDERED: TIZANIDINE HCL 4 MG PO PRN (15:10)
[2017-01-19] MEDS ORDERED: Magic Mouth Was-BEN/MAAL/LIDO SWISH SPIT PRN (15:10)
--- NOTE | 2017-01-19 15:39 | ADMNOTE ---
Admission Chief Complaint: abdominal pain History of Present Illness: ADMISSION History and Physical metastatic CRC on palliative pembroluzumab presenting with abdominal pain, nausea and vomiting. This is one of several admissions for Barbara who recently completed her adjuvant FOLFOX and 2 weeks later relapsed with omental caking. She started FOLFIRI but tolerated very poorly with recurrent admissions for nausea, vomiting and abdominal pain. We have uptitrated her medications to include fentanyl 300 mcg and dilaudid 6 mg po q6 hrs. We recently switched her to pembroluzumab after 2 cycles of FOLFIRI, with her first dose on January 05. I did a home visit on her ThursdayJanuary 12 and she looked better than I have seen her in 3 months. She was taking her short acting only 3x/day. I thought that she was on fentanyl 150 mcg at the time but it appears that she was on 300 mcg. Regarless, she reports feeling great. I did increase her cymbalta to 60 mg and noted a swollen left calf so sent her for a doppler which confirmed a clot. I started her on xeralto 15mg po bid. She reports she was doing really well until yesterday when she developed recurrent severe abdominal pain 8-10/10 , associated with nausea and fecal incontinence over night. She came to the ER today because of refractory abdominal pain that did not respond to her oral rescue meds. She received 1 mg of dilaudid at 10 am which she reports took her from a 10 to an 8. She is tearful. She denies any increased SOB. She is nauseous but not vomiting. She denies any focal weakness. She has been taking her xeralto. She confirms with me today that she wants to be a DNR. Allergies/Medications Medication: Home Medications Medication Instructions Recorded Confirmed Type Levothyroxine TAB* [Synthroid 125 125 mcg PO 0800 04/12/16 01/19/17 History MCG TAB*] Aspirin EC Low Dose* [Ecotrin EC 81 mg PO DAILY tab.ec 04/23/16 01/19/17 Rx Low Dose 81 MG*] Atenolol TAB* [Tenormin TAB* 25 MG] 25 mg PO BEDTIME #30 tab 04/23/16 01/19/17 Rx Magic Mouth Was-BRANDIE/MAAL/LIDO* 10 ml SWISH SPIT QID PRN #0 ml 12/01/16 01/19/17 Rx Scopolamine 1.5 mg* PATCH* 1 patch TRANSDERM Q72H #10 patch 12/01/16 01/19/17 Rx [Transderm-Scop 1.5 mg Patch*] Simethicone CHEW TAB* [Mylicon*] 80 mg PO Q4H PRN #120 tab.chew 12/01/16 Rx fentaNYL PATCH 50 MCG/HR* 100 mcg TRANSDERM Q72H #10 patch 12/01/16 01/19/17 Rx [Duragesic PATCH 50 Mcg/Hr*] MDD 300 q72h Esomeprazole(NF) [Nexium(NF)] 40 mg PO DAILY 12/08/16 01/19/17 History Naloxegol Oxalate [Movantik] 25 mg PO QPM 12/08/16 01/19/17 History Oxybutynin TAB* [Ditropan TAB*] 15 mg PO DAILY 12/08/16 01/19/17 History Tizanidine HCl 4 mg PO BID PRN 12/08/16 01/19/17 History fentaNYL PATCHs 100 MCG/HR* 100 mcg TRANSDERM Q72H 30 Days MDD 12/13/16 Rx [Duragesic Patch 100 Mcg/Hr *] 300 q 72h HYDROmorphone TAB* [Dilaudid TAB*] 6 mg PO Q6H PRN #360 tab MDD 24 mg 01/12/17 01/19/[address] CAP* [Cymbalta CAP*] 60 mg PO DAILY 01/19/17 01/19/17 History LORazepam TAB(*) [Ativan 0.5 MG 0.5 mg PO Q6H PRN MDD 1.5 mg 01/19/17 01/19/17 History TAB (*)] OLANzapine TAB* [Zyprexa 5 MG TAB*] 5 mg PO BEDTIME 01/19/17 01/19/17 History Ondansetron TAB* [Zofran 4 MG Tab*] 4 mg PO Q4H PRN 01/19/17 01/19/17 History Rivaroxaban TAB(*) [Xarelto 15 15 mg PO BID 01/19/17 01/19/17 History mg(*)] fentaNYL PATCH 50 MCG/HR* 100 mcg TRANSDERM Q72H MDD 300 q 01/19/17 01/19/17 History [Duragesic PATCH 50 Mcg/Hr*] 72h Allergies/Adverse Reactions: Allergies Allergy/AdvReac Type Severity Reaction Status Date / Time Adhesive Tape Allergy Rash Verified 01/19/17 09:49 History - Past Medical History Other History: HTN. hyperlipidemia. DVT newly diagnosed. chronic constipation. CAD. hemicolectomy. AAA repair - Family History Other Family History: mother "female" cancer. son-NHL - Social History Hx Alcohol Use: No Hx Tobacco Use: No Marital Status: Single - lives alone. son very involved Review of Systems - Review of Systems Constitutional Symptoms: Positive: Weight Loss, Fatigue Dermatology: Positive: Normal HEENT: Positive: Normal Eyes: Positive: Normal Thyroid: Positive: Normal Gastroenterology: Positive: Abdominal Pain, Nausea, Vomiting, Anorexia, Constipation Musculoskeletal: Positive: Arthritis, Low Back Pain Endocrinology: Positive: Normal Hematologic/Lymphatic: Positive: Anemia Neurology: Positive: Numbness\\Paresthesiae Psychiatry: Positive: Depression, Anxiety Physical Exam - Physical Exam Physical Examination: Vital Signs Temp Pulse Resp BP Pulse Ox 98 F 78 7 120/59 89 01/19/17 09:35 01/19/17 15:30 01/19/17 15:30 01/19/17 15:30 01/19/17 15:30 lying on side very uncomfortable appearing perr eomi op dry CTA bl s1 s2 nl diffuse TTP, guarding, mostly RUQ, dec bowel sounds 1+ LE LLE A+O x 3, nonfocal grossly did not ambulate port, right upper chest wall, clean and intact Results - Lab Results Lab Results: 01/19/17 01/19/17 01/19/17 10:12 10:12 10:12 WBC 9.2 RBC 3.98 L Hgb 12.3 Hct 38 MCV 97 MCH 31 MCHC 32 RDW 15 Plt Count 390 MPV 8 Neut % (Auto) 69.7 Lymph % (Auto) 16.1 L [place] % (Auto) 12.0 H Eos % (Auto) 1.0 Baso % (Auto) 1.2 Absolute Neuts (auto) 6.4 Absolute Lymphs (auto) 1.5 Absolute Monos (auto) 1.1 H Absolute Eos (auto) 0.1 Absolute Basos (auto) 0.1 Absolute Nucleated RBC 0 Nucleated RBC % 0 INR (Anticoag Therapy) 1.56 H APTT 28.5 Sodium 140 Potassium 4.0 Chloride 108 Carbon Dioxide 22 Anion Gap 10 BUN 23 Creatinine 0.94 Est GFR ( Amer) 75.3 Est GFR (Non-Af Amer) 58.5 BUN/Creatinine Ratio 24.5 H Glucose 105 H Lactic Acid Calcium 9.3 Total Bilirubin 0.50 AST 14 ALT 8 Alkaline Phosphatase 94 C-Reactive Protein 36.95 H Total Protein 6.6 Albumin 3.3 Globulin 3.3 Albumin/Globulin Ratio 1.0 Lipase 19 Urine Test 01/19/17 01/19/17 10:12 12:45 WBC RBC Hgb Hct MCV MCH MCHC RDW Plt Count MPV Neut % (Auto) Lymph % (Auto) [place] % (Auto) Eos % (Auto) Baso % (Auto) Absolute Neuts (auto) Absolute Lymphs (auto) Absolute Monos (auto) Absolute Eos (auto) Absolute Basos (auto) Absolute Nucleated RBC Nucleated RBC % INR (Anticoag Therapy) APTT Sodium Potassium Chloride Carbon Dioxide Anion Gap BUN Creatinine Est GFR ( Amer) Est GFR (Non-Af Amer) BUN/Creatinine Ratio Glucose Lactic Acid 0.6 Calcium Total Bilirubin AST ALT Alkaline Phosphatase C-Reactive Protein Total Protein Albumin Globulin Albumin/Globulin Ratio Lipase Urine Test Negative - Radiology Radiology Results: CT A/P reports increase peritoneal studding, note only one cycle pembro and compared to pre-FOLFIRI tx. 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 At this point I do not think she is responding to her long acting fentanyl any more. I would like to switch her to a long acting morphine in addition to dilaudid (dilaudid has worked well for her in the past). I suspect that the increased pain is from the increased peritoneal disease. -start MS contin 30 mg po tid -cont dilaudid 6 mg PO for 1-5 pain, though will shorten interval to q3 hrs -IV dilaudid 2 mg IV q3 hrs PRN severe pain -cont bowel regimen -cont antiemetics including zyprexa DVT: still on xeralto 15 mg po bid until 02/03 at which time she can switch to 20 mg daily DNR/DNI: we discussed this again and confirmed
--- NOTE | 2017-01-19 16:02 | ED ---
Hussein Contreras Thomas, scribed for Alfredo Sandhu MD on 01/19/17 at 0959 . Abdominal Pain/Female - HPI Summary HPI Summary: The pt is a 71 y/o F with a Hx of colon CA presenting to the ED c/o diffuse abd pain that began 3 days ago. She additionally c/o nausea (onset 3 days ago), diarrhea (onset 1 day ago), and vomiting ("dry heaves"). She denies bloody stool. The pt states that she had a tumor in her small and large intestines. She states that she has not had surgery to remove that tumor, only chemotherapy. 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 Dr. Cornell is her oncologist. - History of Current Complaint Chief Complaint: EDAbdPain Stated Complaint: ABD PAIN Time Seen by Provider: 01/19/17 09:50 Hx Obtained From: Patient Onset/Duration: Lasting Days - 3 days, Still Present Timing: Constant Location: Diffuse Aggravating Factor(s): Nothing Alleviating Factor(s): Nothing Associated Signs and Symptoms: Positive: Nausea, Vomiting - dry heaves, Diarrhea. Negative: Blood in Stool Allergies/Adverse Reactions: Allergies Allergy/AdvReac Type Severity Reaction Status Date / Time Adhesive Tape Allergy Rash Verified 01/19/17 09:49 Home Medications: Home Medications DULoxetine DR CAP* [Cymbalta CAP*] 30 mg PO DAILY 01/19/17 [History Confirmed ] LORazepam TAB(*) [Ativan 0.5 MG TAB (*)] 0.5 mg PO Q6H PRN MDD 1.5 mg 01/19/17 [ History Confirmed 01/19/17] OLANzapine TAB* [Zyprexa 5 MG TAB*] 5 mg PO BEDTIME 01/19/17 [History Confirmed 01/19/17] Ondansetron TAB* [Zofran 4 MG Tab*] 4 mg PO Q4H PRN 01/19/17 [History Confirmed 01/19/17] Rivaroxaban TAB(*) [Xarelto 15 mg(*)] 15 mg PO BID 01/19/17 [History Confirmed 01/19/17] fentaNYL PATCH 50 MCG/HR* [Duragesic PATCH 50 Mcg/Hr*] 100 mcg TRANSDERM Q72H MDD 300 q 72h 01/19/17 [History Confirmed 01/19/17] PMH/Surg Hx/FS Hx/Imm Hx Previously Healthy: No Endocrine/Hematology History: Reports: Hx Thyroid Disease Cardiovascular History: Reports: Hx Aneurysm, Hx Hypercholesterolemia, Hx Hypertension - ON MEDS, Hx Myocardial Infarction, Other Cardiovascular Problems/ Disorders - 2015, AORTIC BYPASS GI History: Reports: Hx Gastroesophageal Reflux Disease, Other GI Disorders - COLON CANCER Musculoskeletal History: Reports: Hx Back Problems Sensory History: Reports: Hx Contacts or Glasses Denies: Hx Hearing Aid Opthamlomology History: Reports: Hx Contacts or Glasses - Cancer History Cancer Type, Location and Year: Colon Hx Chemotherapy: Yes - STARTING 05/27/16 - Surgical History Surgery Procedure, Year, and Place: ABDOMINAL ANEURYSM 2015. AORTIC VALVE REPLACEMENT 2014. 2016, COLON TUMOR, CMCM Hx Anesthesia Reactions: No Infectious Disease History: No Infectious Disease History: Denies: Traveled Outside the [place] in Last 30 Days - Family History Known Family History: Positive: Hypertension - Social History Alcohol Use: Occasionally Substance Use Type: Reports: None Smoking Status (MU): Former Smoker Amount Used/How Often: PACK A DAY Review of Systems Constitutional: Negative Negative: Fever Eyes: Negative ENT: Negative Cardiovascular: Negative Respiratory: Negative Positive: Abdominal Pain - diffuse, Vomiting - dry heaves, Diarrhea - onset 1 day ago, Nausea - onset 3 days ago, Other - NEG: bloody stool Genitourinary: Negative Musculoskeletal: Negative Skin: Negative Neurological: Negative Psychological: Normal All Other Systems Reviewed And Are Negative: Yes Physical Exam - Summary Physical Exam Summary: Gen: well-appearing, moderate pain distress Skin: warm, color, dry Head: normal Eyes: EOMI, NUNU ENT: oral mucosa dry Neck: supple, nontender Resp: CTA, breath sounds present Cardio: RRR Abd: soft, diffuse tenderness, worse in R than L Bowel: hypoactive bowel sounds Musc: normal, strength/ROM intact Neuro: normal, sensory/motor intact, A&O x3 Psych: affect/mood appropriate Triage Information Reviewed: Yes Vital Signs On Initial Exam: Initial Vitals Temp Pulse Resp BP Pulse Ox 98 F 78 14 140/87 94 01/19/17 09:35 01/19/17 09:35 01/19/17 09:35 01/19/17 09:35 01/19/17 09:35 Vital Signs Reviewed: Yes - Fausto Coma Scale Coma Scale Total: 15 Diagnostics - Vital Signs Vital Signs Temp Pulse Resp BP Pulse Ox 01/19/17 09:35 98 F 78 14 140/87 94 - Laboratory Lab Results: Lab Results 01/19/17 01/19/17 01/19/17 Range/Units 10:12 10:12 10:12 WBC 9.2 (3.5-10.8) 10^3/ul RBC 3.98 L (4.0-5.4) 10^6/ul Hgb 12.3 (12.0-16.0) g/dl Hct 38 (35-47) % MCV 97 (80-97) fL MCH 31 (27-31) pg MCHC 32 (31-36) g/dl RDW 15 (10.5-15) % Plt Count 390 (150-450) 10^3/ul MPV 8 (7.4-10.4) um3 Neut % (Auto) 69.7 (38-83) % Lymph % (Auto) 16.1 L (25-47) % Ada % (Auto) 12.0 H (1-9) % Eos % (Auto) 1.0 (0-6) % Baso % (Auto) 1.2 (0-2) % Absolute Neuts (auto) 6.4 (1.5-7.7) 10^3/ul Absolute Lymphs (auto) 1.5 (1.0-4.8) 10^3/ul Absolute Monos (auto) 1.1 H (0-0.8) 10^3/ul Absolute Eos (auto) 0.1 (0-0.6) 10^3/ul Absolute Basos (auto) 0.1 (0-0.2) 10^3/ul Absolute Nucleated RBC 0 10^3/ul Nucleated RBC % 0 INR (Anticoag Therapy) 1.56 H (0.89-1.11) APTT 28.5 (26.0-36.3) seconds Sodium 140 (133-145) mmol/L Potassium 4.0 (3.5-5.0) mmol/L Chloride 108 (101-111) mmol/L Carbon Dioxide 22 (22-32) mmol/L Anion Gap 10 (2-11) mmol/L BUN 23 (6-24) mg/dL Creatinine 0.94 (0.51-0.95) mg/dL Est GFR ( Amer) 75.3 (>60) Est GFR (Non-Af Amer) 58.5 (>60) BUN/Creatinine Ratio 24.5 H (8-20) Glucose 105 H (70-100) mg/dL Lactic Acid (0.5-2.0) mmol/L Calcium 9.3 (8.6-10.3) mg/dL Total Bilirubin 0.50 (0.2-1.0) mg/dL AST 14 (13-39) U/L ALT 8 (7-52) U/L Alkaline Phosphatase 94 (34-104) U/L C-Reactive Protein 36.95 H (< 5.00) mg/L Total Protein 6.6 (6.4-8.9) g/dL Albumin 3.3 (3.2-5.2) g/dL Globulin 3.3 (2-4) g/dL Albumin/Globulin Ratio 1.0 (1-3) Lipase 19 (11.0-82.0) U/L Urine Test (Negative) 01/19/17 01/19/17 Range/Units 10:12 12:45 WBC (3.5-10.8) 10^3/ul RBC (4.0-5.4) 10^6/ul Hgb (12.0-16.0) g/dl Hct (35-47) % MCV (80-97) fL MCH (27-31) pg MCHC (31-36) g/dl RDW (10.5-15) % Plt Count (150-450) 10^3/ul MPV (7.4-10.4) um3 Neut % (Auto) (38-83) % Lymph % (Auto) (25-47) % Ada % (Auto) (1-9) % Eos % (Auto) (0-6) % Baso % (Auto) (0-2) % Absolute Neuts (auto) (1.5-7.7) 10^3/ul Absolute Lymphs (auto) (1.0-4.8) 10^3/ul Absolute Monos (auto) (0-0.8) 10^3/ul Absolute Eos (auto) (0-0.6) 10^3/ul Absolute Basos (auto) (0-0.2) 10^3/ul Absolute Nucleated RBC 10^3/ul Nucleated RBC % INR (Anticoag Therapy) (0.89-1.11) APTT (26.0-36.3) seconds Sodium (133-145) mmol/L Potassium (3.5-5.0) mmol/L Chloride (101-111) mmol/L Carbon Dioxide (22-32) mmol/L Anion Gap (2-11) mmol/L BUN (6-24) mg/dL Creatinine (0.51-0.95) mg/dL Est GFR ( Amer) (>60) Est GFR (Non-Af Amer) (>60) BUN/Creatinine Ratio (8-20) Glucose (70-100) mg/dL Lactic Acid 0.6 (0.5-2.0) mmol/L Calcium (8.6-10.3) mg/dL Total Bilirubin (0.2-1.0) mg/dL AST (13-39) U/L ALT (7-52) U/L Alkaline Phosphatase (34-104) U/L C-Reactive Protein (< 5.00) mg/L Total Protein (6.4-8.9) g/dL Albumin (3.2-5.2) g/dL Globulin (2-4) g/dL Albumin/Globulin Ratio (1-3) Lipase (11.0-82.0) U/L Urine Test Negative (Negative) Result Diagrams: 01/19/17 10:12 01/19/17 10:12 Lab Statement: Any lab studies that have been ordered have been reviewed, and results considered in the medical decision making process. - CT CT Abd/Pel CT Interpretation: Positive (See Comments) - 1. 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 2. STATUS POST PARTIAL COLECTOMY. 3. FATTY LIVER CT Interpretation Completed By: Radiologist Re-Evaluation - Re-Evaluation Second Eval Re-Evaluation Time: 14:20 Change: Unchanged Abdominal Pain Fem Course/Dx - Course Course Of Treatment: NO CRITICAL CARE TIME. PAIN INTRACTABLE IN ED. RESULTS DISCUSSED WITH PATIENT/FAMILY/DR HOOKS. ADMIT HEME/ONC STABLE. - Diagnoses Provider Diagnoses: Abdominal pain - Provider Notifications Discussed Care Of Patient With: Vivien Hooks Time Discussed With Above Provider: 14:22 Instructed by Provider To: Other - Discussed patient. Discharge - Discharge Plan Condition: Stable Disposition: ADMITTED TO [facility] Referrals: Konrad Grimaldo MD [Primary Care Provider] - The documentation as recorded by the Hussein ryder Thomas accurately reflects the service I personally performed and the decisions made by me, Alfredo Sandhu MD.
[2017-01-19] MEDS: Ondansetron TAB* 4 MG PO PRN (17:55)
[2017-01-19] MEDS: Morphine TAB Extended Release (*) 30 MG TAB.ER PO SCH (17:55)
[2017-01-19] MEDS ORDERED: NALOXEGOL OXALATE 25 MG PO SCH (18:00)
[2017-01-19] MEDS: Scopolamine 1.5 mg* PATCH TRANSDERM SCH (18:04)
[2017-01-19] MEDS: Atenolol TAB* 25 MG PO SCH (21:08)
[2017-01-19] MEDS: Rivaroxaban TAB(*) 15 MG PO SCH (21:08)
[2017-01-19] MEDS: OLANzapine TAB* 5 MG PO SCH (21:09)
[2017-01-19] MEDS: HYDROmorphone TAB* 2 MG PO PRN (21:09)
[2017-01-20] MEDS: Morphine TAB Extended Release (*) 30 MG TAB.ER PO SCH ×2 (00:25→08:56)
[2017-01-20] MEDS: NS 0.9% 1000 ML* 1,000 ML IV SCH ×3 (02:27→19:25)
[2017-01-20] MEDS: Levothyroxine TAB* 125 MCG TAB PO SCH (05:32)
[2017-01-20 06:00] LABS: Hematocrit 34 % (35-47); Hemoglobin 11.1 g/dl (12.0-16.0); Mean Corpuscular HGB Conc 33 g/dl (31-36); Mean Corpuscular Hemoglobin 32 pg (27-31); Mean Corpuscular Volume 96 fL (80-97); Mean Platelet Volume 7 um3 (7.4-10.4); Red Blood Count 3.51 10^6/ul (4.0-5.4); Red Cell Distribution Width 15 % (10.5-15); White Blood Count 6.5 10^3/ul (3.5-10.8)
[2017-01-20 06:09] LABS: BUN/Creatinine Ratio 22.5 (8-20); Calcium 8.5 mg/dL (8.6-10.3); EGFR African American 90.7 (>60); EGFR Non-African American 70.5 (>60); Potassium 3.5 mmol/L (3.5-5.0)
[2017-01-20] MEDS: DULoxetine DR CAP* 30 MG CAP.DR PO SCH (08:55)
[2017-01-20] MEDS: Aspirin EC Low Dose* 81 MG TAB.EC PO SCH (08:57)
[2017-01-20] MEDS: Oxybutynin XL TAB* 5 MG PO SCH (08:57)
[2017-01-20] MEDS: Rivaroxaban TAB(*) 15 MG PO SCH ×2 (08:58→20:10)
[2017-01-20] MEDS ORDERED: tiZANidine TAB* 2 MG PO PRN (11:07)
[2017-01-20] MEDS: MORPHINE 100 MG PO SCH ×2 (11:31→20:45)
[2017-01-20] MEDS: HYDROmorphone TAB* 2 MG PO PRN (11:32)
[2017-01-20] MEDS: Diphenoxylat/Atrop 2.5-0.025M* 1 TAB PO PRN (11:52)
[2017-01-20] MEDS: OLANzapine TAB* 5 MG PO SCH (20:09)
[2017-01-20] MEDS: Atenolol TAB* 25 MG PO SCH (20:53)
[2017-01-21] MEDS: MORPHINE 100 MG PO SCH ×2 (03:12→11:21)
[2017-01-21] MEDS: NS 0.9% 1000 ML* 1,000 ML IV SCH ×3 (03:16→22:20)
[2017-01-21] MEDS: Levothyroxine TAB* 125 MCG TAB PO SCH (05:29)
[2017-01-21 06:03] LABS: BUN/Creatinine Ratio 24.6 (8-20); Calcium 8.1 mg/dL (8.6-10.3); EGFR African American 115.2 (>60); EGFR Non-African American 89.6 (>60); Potassium 3.5 mmol/L (3.5-5.0)
[2017-01-21] MEDS: Oxybutynin XL TAB* 5 MG PO SCH (07:55)
[2017-01-21] MEDS: Rivaroxaban TAB(*) 15 MG PO SCH ×3 (07:55→23:02)
[2017-01-21] MEDS: Aspirin EC Low Dose* 81 MG TAB.EC PO SCH (07:56)
[2017-01-21] MEDS: DULoxetine DR CAP* 30 MG CAP.DR PO SCH (07:56)
[2017-01-21] MEDS: HYDROmorphone TAB* 2 MG PO PRN (07:56)
[2017-01-21] MEDS ORDERED: Morphine TAB Extended Release (*) 30 MG TAB.ER PO SCH (10:57)
[2017-01-21] MEDS: Morphine TAB Extended Release (*) 30 MG TAB.ER PO SCH ×2 (13:00→18:02)
[2017-01-21] MEDS: Atenolol TAB* 25 MG PO SCH ×2 (22:16→23:01)
[2017-01-21] MEDS: OLANzapine TAB* 5 MG PO SCH ×2 (22:16→23:01)
[2017-01-22] MEDS: Morphine TAB Extended Release (*) 30 MG TAB.ER PO SCH (05:23)
[2017-01-22] MEDS: Levothyroxine TAB* 125 MCG TAB PO SCH (05:59)
--- NOTE | 2017-01-22 07:57 | PN ---
Progress Note - Progress Note Date of Service: 01/22/17 SOAP: Subjective: very confused and agitated over night. refused all meds after 1 pm yesterday so no pain meds given. this am recognizes me and is tearful. states that she thinks she may be in withdrawal (I agree!) and is very confused. She reports that "those people keep trying to take me away and I wont let them". oriented however to hospital and month. denies pain though when she moves she clearly grimaces. needed to have straight catheterization over night for urinary retention. Objective: Vital Signs Temp Pulse Resp BP Pulse Ox 98.4 F 100 16 117/65 90 01/22/17 00:21 01/22/17 00:21 01/22/17 00:21 01/22/17 00:21 01/22/17 00:21 lying in bed picking at lips, clearly agitated perr eomi op dry CTA bl s1 s2 nl soft, ttp throughout no le edema oriented to hospital and january, tangential, grossly nonfocal Aspirin (Aspirin Ec Low Dose*) 81 mg PO DAILY [facility] Last Admin: 01/21/17 07:56 Dose: 81 mg Atenolol (Tenormin Tab*) 25 mg PO BEDTIME [facility] Last Admin: 01/21/17 23:01 Dose: Not Given Diphenoxylate HCl/Atropine (Lomotil Tab*) 1 tab PO Q4H PRN PRN Reason: DIARRHEA Last Admin: 01/20/17 11:52 Dose: 1 tab Duloxetine HCl (Cymbalta Cap*) 60 mg PO DAILY [facility] Last Admin: 01/21/17 07:56 Dose: 60 mg Hydromorphone HCl (Dilaudid Iv*) 2 mg IV SLOW PU Q4H PRN PRN Reason: PAIN - MODERATE TO SEVERE Hydromorphone HCl (Dilaudid Tab*) 6 mg PO Q3H PRN PRN Reason: PAIN - MILD TO MODERATE Last Admin: 01/21/17 07:56 Dose: 6 mg Sodium Chloride (Ns 0.9% 1000 Ml*) 1,000 mls @ 125 mls/hr IV PER RATE [facility] Last Admin: 01/21/17 11:49 Dose: 125 mls/hr Levothyroxine Sodium (Synthroid Tab*) 125 mcg PO 0600 [facility] Last Admin: 01/22/17 05:59 Dose: Not Given Lorazepam (Ativan Tab(*)) 0.5 mg PO Q6H PRN PRN Reason: NAUSEA Methadone HCl (Dolophine Tab*) 10 mg PO TID [facility] Multi-Ingredient Mouthwash/Gargle (Magic Mouth Was-Phuc/Maal/Lido*) 10 ml SWISH SPIT QID PRN PRN Reason: MOUTH SORES/XEROSTOMIA Olanzapine (Zyprexa Tab*) 5 mg PO BEDTIME [facility] Last Admin: 01/21/17 23:01 Dose: Not Given Ondansetron HCl (Zofran Tab*) 4 mg PO Q4H PRN PRN Reason: NAUSEA Last Admin: 01/19/17 17:55 Dose: 4 mg Oxybutynin Chloride (Ditropan Xl Tab*) 15 mg PO DAILY [facility] Last Admin: 01/21/17 07:55 Dose: 15 mg Pharmacy Profile Note (Scopolomine Patch Remove*) 1 note PATCH OFF Q72H [facility] Rivaroxaban (Xarelto(*)) 15 mg PO BID [facility] Last Admin: 01/21/17 23:02 Dose: Not Given Scopolamine (Transderm-Scop 1.5 Mg Patch*) 1 patch TRANSDERM Q72H [facility] Last Admin: 01/19/17 18:04 Dose: 1 patch Simethicone (Mylicon*) 80 mg PO Q4H PRN PRN Reason: GAS Tizanidine HCl (Zanaflex Tab*) 4 mg PO BID PRN PRN Reason: SPASMS - MUSCLE Last Admin: 01/20/17 11:34 Dose: 4 mg Assessment: 71 yo F w metastatic CRC on palliative pembroluzumab admitted with uncontrolled pain and now delerious. I suspect that this is iatrogenically induced delerium from medication changes and now withdrawal. she is not tolerating the morphine extended release AT ALL and so I will try switching to methadone. she did agree to take medications for me this am. Her baseline EKG last month showed a QTc of <450 and so we will repeat in 2 weeks. If her mental status does not clear we will need to get [facility] [employer] imaging. Plan: -start methadone 10 mg po TID encourage use of other PO meds continuous reorientation labs today if she will allow encouraged to take xeralto given fresh DVT
[2017-01-22] MEDS: DULoxetine DR CAP* 30 MG CAP.DR PO SCH (08:30)
[2017-01-22] MEDS: Oxybutynin XL TAB* 5 MG PO SCH (08:30)
[2017-01-22] MEDS: Methadone TAB* 10 MG PO SCH ×3 (08:30→21:29)
[2017-01-22] MEDS: Aspirin EC Low Dose* 81 MG TAB.EC PO SCH (08:30)
[2017-01-22] MEDS: Rivaroxaban TAB(*) 15 MG PO SCH ×2 (08:30→23:11)
[2017-01-22] MEDS ORDERED: Methadone TAB* 10 MG PO SCH (09:00)
[2017-01-22] MEDS: Scopolamine 1.5 mg* PATCH TRANSDERM SCH (14:42)
[2017-01-22] MEDS: Scopolomine PATCH Remove* 1 NOTE MISC PATCH OFF SCH (14:44)
[2017-01-22 21:20] LABS: Urine Bacteria 3+ (Absent); Urine Bilirubin Negative (Negative); Urine Glucose Negative (Negative); Urine Nitrite Positive (Negative)
[2017-01-22] MEDS: OLANzapine TAB* 5 MG PO SCH (21:29)
[2017-01-22] MEDS: Atenolol TAB* 25 MG PO SCH (21:30)
[2017-01-23] MEDS: Ondansetron TAB* 4 MG PO PRN ×3 (02:46→20:14)
[2017-01-23] MEDS: Diphenoxylat/Atrop 2.5-0.025M* 1 TAB PO PRN ×2 (02:46→20:15)
[2017-01-23] MEDS: Levothyroxine TAB* 125 MCG TAB PO SCH (06:04)
[2017-01-23] MEDS: Aspirin EC Low Dose* 81 MG TAB.EC PO SCH (09:46)
[2017-01-23] MEDS: Oxybutynin XL TAB* 5 MG PO SCH (09:47)
[2017-01-23] MEDS: DULoxetine DR CAP* 30 MG CAP.DR PO SCH (09:52)
[2017-01-23] MEDS: Rivaroxaban TAB(*) 15 MG PO SCH ×2 (09:52→20:16)
[2017-01-23] MEDS: Methadone TAB* 10 MG PO SCH ×3 (09:55→20:16)
--- NOTE | 2017-01-23 10:43 | PN ---
Progress Note - Progress Note Date of Service: 01/23/17 SOAP: Subjective: []Tells me this AM her son was in the room and that she didn't know where she was and it was a whole different situation and that "they are starving me and trying to kill me." Then tells me she is all better now and understands she has been confused over the last 2 days. Denies headache, vision changes, and neuropathy. Denies significant weakness, "Well I'm not strong." Abd. pain continues, no worse. Says when she moves it is better for a second and then worse. Incontinent of stool overnight. Medications: Aspirin (Aspirin Ec Low Dose*) 81 mg PO DAILY [facility] Last Admin: 01/23/17 09:46 Dose: 81 mg Atenolol (Tenormin Tab*) 25 mg PO BEDTIME [facility] Last Admin: 01/22/17 21:30 Dose: 25 mg Diphenoxylate HCl/Atropine (Lomotil Tab*) 1 tab PO Q4H PRN PRN Reason: DIARRHEA Last Admin: 01/23/17 02:46 Dose: 1 tab Duloxetine HCl (Cymbalta Cap*) 60 mg PO DAILY [facility] Last Admin: 01/23/17 09:52 Dose: 60 mg Hydromorphone HCl (Dilaudid Iv*) 2 mg IV SLOW PU Q4H PRN PRN Reason: PAIN - MODERATE TO SEVERE Hydromorphone HCl (Dilaudid Tab*) 6 mg PO Q3H PRN PRN Reason: PAIN - MILD TO MODERATE Last Admin: 01/21/17 07:56 Dose: 6 mg Sodium Chloride (Ns 0.9% 1000 Ml*) 1,000 mls @ 125 mls/hr IV PER RATE [facility] Last Admin: 01/21/17 11:49 Dose: 125 mls/hr Levothyroxine Sodium (Synthroid Tab*) 125 mcg PO 0600 [facility] Last Admin: 01/23/17 06:04 Dose: 125 mcg Lorazepam (Ativan Tab(*)) 0.5 mg PO Q6H PRN PRN Reason: NAUSEA Methadone HCl (Dolophine Tab*) 10 mg PO TID [facility] Last Admin: 01/23/17 09:55 Dose: 10 mg Multi-Ingredient Mouthwash/Gargle (Magic Mouth Was-Phuc/Maal/Lido*) 10 ml SWISH SPIT QID PRN PRN Reason: MOUTH SORES/XEROSTOMIA Olanzapine (Zyprexa Tab*) 5 mg PO BEDTIME [facility] Last Admin: 01/22/17 21:29 Dose: 5 mg Ondansetron HCl (Zofran Tab*) 4 mg PO Q4H PRN PRN Reason: NAUSEA Last Admin: 01/23/17 10:08 Dose: 4 mg Oxybutynin Chloride (Ditropan Xl Tab*) 15 mg PO DAILY [facility] Last Admin: 01/23/17 09:47 Dose: 15 mg Pharmacy Profile Note (Scopolomine Patch Remove*) 1 note PATCH OFF Q72H [facility] Last Admin: 01/22/17 14:44 Dose: Not Given Rivaroxaban (Xarelto(*)) 15 mg PO BID [facility] Last Admin: 01/23/17 09:52 Dose: 15 mg Scopolamine (Transderm-Scop 1.5 Mg Patch*) 1 patch TRANSDERM Q72H [facility] Last Admin: 01/22/17 14:42 Dose: 1 patch Simethicone (Mylicon*) 80 mg PO Q4H PRN PRN Reason: GAS Tizanidine HCl (Zanaflex Tab*) 4 mg PO BID PRN PRN Reason: SPASMS - MUSCLE Last Admin: 01/20/17 11:34 Dose: 4 mg Objective: [] Vital Signs Temp Pulse Resp BP Pulse Ox 97.7 F 92 16 138/80 93 01/23/17 08:06 01/23/17 08:06 01/23/17 09:55 01/23/17 08:06 01/23/17 08:06 A&Ox3 and situation, however will change story intermittently EOMI, PERRLA, DU[place] HRR, S1S2, no murmur noted LS clear +BS, abd. soft and diffusely tender Laboratory Results - last 24 hr 01/22/17 19:30 Urine Color Yellow Urine Appearance Cloudy Urine pH 5.0 Ur Specific [place] 1.016 Urine Protein Negative Urine Ketones 1+ H Urine Blood 1+ H Urine Nitrate Positive H Urine Bilirubin Negative Urine Urobilinogen Negative Ur Leukocyte Esterase 3+ H Urine WBC (Auto) 3+(>20/hpf) H Urine RBC (Auto) 1+(3-5/hpf) H Ur Squamous Epith Cells Present H Urine Bacteria 3+ H Urine Glucose Negative Assessment: []71 yo female with metastatic colon cancer admitted for recurrent uncontrolled severe abdominal pain r/t omental disease. During her admission we have attempted to adjust her pain meds and she has subsequently developed confusion. Plan: []1. Malignant pain r/t omental disease: stable at this time and with recent confusion r/t med changes will hold off on any changes today, cont. Methadone 2. Confusion: [place] to be Toxic Encephalopathy r/t morphine ER and appears to be improving, however still tells me of some hallucinations this AM and then changes her story; with aggressive disease I would like to be cautious and will obtain an MRI w/wo contrast today. 3. Bacteriuria: may play role in confusion, start PO Bactrim today, however still can not rule out disease without MRI 4. 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 May benefit from palliative consult, however with confusion will delay until either improvement or family is available. Case discussed with pt.'s primary oncologist, Dr. Yao, and attending, Dr. Cornell.
[2017-01-23] MEDS: NS 0.9% 1000 ML* 1,000 ML IV SCH ×2 (11:15→20:12)
[2017-01-23] MEDS: Sulfamethox/Trimethoprim DS 800/160* TAB PO SCH ×2 (11:15→20:15)
[2017-01-23 12:09] LABS: EGFR Non-African American 96.4 (>60)
--- NOTE | 2017-01-23 13:25 | RAD ---
HISTORY: MRI clearance. COMPARISON: None. FINDINGS: Frontal and lateral views of the orbits. There is no radiopaque foreign body attributable to the orbits. The orbital rims are intact. The sinuses are clear. The zygomatic arches are normal. IMPRESSION: No radiopaque foreign body attributable to the orbits.
[2017-01-23] MEDS: HYDROmorphone TAB* 2 MG PO PRN (18:14)
[2017-01-23] MEDS: OLANzapine TAB* 5 MG PO SCH (20:14)
[2017-01-23] MEDS: Atenolol TAB* 25 MG PO SCH (20:17)
[2017-01-24] MEDS: HYDROmorphone TAB* 2 MG PO PRN ×3 (05:21→18:27)
[2017-01-24] MEDS: NS 0.9% 1000 ML* 1,000 ML IV SCH ×3 (05:21→21:56)
[2017-01-24] MEDS: Ondansetron TAB* 4 MG PO PRN ×2 (05:23→09:46)
[2017-01-24] MEDS: Levothyroxine TAB* 125 MCG TAB PO SCH (05:23)
[2017-01-24] MEDS: Diphenoxylat/Atrop 2.5-0.025M* 1 TAB PO PRN (05:23)
[2017-01-24] MEDS: Sulfamethox/Trimethoprim DS 800/160* TAB PO SCH ×2 (09:45→20:03)
[2017-01-24] MEDS: DULoxetine DR CAP* 30 MG CAP.DR PO SCH (09:45)
[2017-01-24] MEDS: Oxybutynin XL TAB* 5 MG PO SCH (09:45)
[2017-01-24] MEDS: Methadone TAB* 10 MG PO SCH ×3 (09:46→20:04)
[2017-01-24] MEDS: Aspirin EC Low Dose* 81 MG TAB.EC PO SCH (09:46)
[2017-01-24] MEDS: Rivaroxaban TAB(*) 15 MG PO SCH ×2 (09:50→20:03)
[2017-01-24] MEDS: OLANzapine TAB* 5 MG PO SCH (20:02)
[2017-01-24] MEDS: Atenolol TAB* 25 MG PO SCH (20:04)
[2017-01-25] MEDS: HYDROmorphone* 2 MG/ML 1 ML SYR IV SLOW PU PRN (02:20)
[2017-01-25] MEDS: NS 0.9% 1000 ML* 1,000 ML IV SCH ×3 (05:50→23:38)
[2017-01-25] MEDS: Levothyroxine TAB* 125 MCG TAB PO SCH (05:50)
[2017-01-25] MEDS: Atenolol TAB* 25 MG PO SCH ×2 (06:15→20:00)
[2017-01-25] MEDS: Rivaroxaban TAB(*) 15 MG PO SCH ×3 (06:15→20:02)
[2017-01-25] MEDS: Sulfamethox/Trimethoprim DS 800/160* TAB PO SCH ×3 (06:15→20:01)
[2017-01-25] MEDS: OLANzapine TAB* 5 MG PO SCH ×2 (06:16→20:00)
[2017-01-25 06:36] LABS: Hematocrit 36 % (35-47); Hemoglobin 11.6 g/dl (12.0-16.0); Mean Corpuscular HGB Conc 33 g/dl (31-36); Mean Corpuscular Hemoglobin 31 pg (27-31); Mean Corpuscular Volume 96 fL (80-97); Mean Platelet Volume 8 um3 (7.4-10.4); Red Blood Count 3.73 10^6/ul (4.0-5.4); Red Cell Distribution Width 15 % (10.5-15)
[2017-01-25 06:44] LABS: BUN/Creatinine Ratio 17.2 (8-20); Calcium 8.2 mg/dL (8.6-10.3); EGFR African American 117.3 (>60); EGFR Non-African American 91.2 (>60); Potassium 3.1 mmol/L (3.5-5.0)
[2017-01-25] MEDS: Oxybutynin XL TAB* 5 MG PO SCH (09:10)
[2017-01-25] MEDS: DULoxetine DR CAP* 30 MG CAP.DR PO SCH (09:11)
[2017-01-25] MEDS: Methadone TAB* 10 MG PO SCH (09:11)
[2017-01-25] MEDS: Aspirin EC Low Dose* 81 MG TAB.EC PO SCH (09:11)
[2017-01-25] MEDS: HYDROmorphone TAB* 2 MG PO PRN ×3 (09:12→17:08)
[2017-01-25] MEDS: Potassium Chlor TAB* 20 MEQ TAB.ER PO SCH (12:15)
[2017-01-25] MEDS: Ondansetron TAB* 4 MG PO PRN (12:53)
[2017-01-25] MEDS: Methadone TAB* 5 MG PO SCH ×2 (14:39→20:01)
[2017-01-25] MEDS: Scopolamine 1.5 mg* PATCH TRANSDERM SCH (17:08)
[2017-01-25] MEDS: Scopolomine PATCH Remove* 1 NOTE MISC PATCH OFF SCH (17:18)
[2017-01-26] MEDS: HYDROmorphone* 2 MG/ML 1 ML SYR IV SLOW PU PRN ×2 (02:52→08:31)
[2017-01-26] MEDS: Levothyroxine TAB* 125 MCG TAB PO SCH (06:59)
[2017-01-26] MEDS: NS 0.9% 1000 ML* 1,000 ML IV SCH ×2 (07:07→22:29)
[2017-01-26 07:36] LABS: BUN/Creatinine Ratio 16.1 (8-20); Calcium 8.3 mg/dL (8.6-10.3); EGFR African American 136.9 (>60); EGFR Non-African American 106.4 (>60); Potassium 3.2 mmol/L (3.5-5.0)
[2017-01-26] MEDS: Diphenoxylat/Atrop 2.5-0.025M* 1 TAB PO PRN (08:32)
[2017-01-26] MEDS: Aspirin EC Low Dose* 81 MG TAB.EC PO SCH (08:37)
[2017-01-26] MEDS: Oxybutynin XL TAB* 5 MG PO SCH (08:37)
[2017-01-26] MEDS: Methadone TAB* 5 MG PO SCH ×3 (08:39→21:01)
[2017-01-26] MEDS: DULoxetine DR CAP* 30 MG CAP.DR PO SCH (08:39)
[2017-01-26] MEDS: Sulfamethox/Trimethoprim DS 800/160* TAB PO SCH ×2 (08:40→21:01)
[2017-01-26] MEDS: Potassium Chlor TAB* 20 MEQ TAB.ER PO SCH (08:40)
[2017-01-26] MEDS: Ondansetron TAB* 4 MG PO PRN (08:44)
[2017-01-26] MEDS: Rivaroxaban TAB(*) 15 MG PO SCH ×2 (09:43→21:01)
[2017-01-26] MEDS ORDERED: DULoxetine DR CAP* 30 MG CAP.DR PO SCH (10:42)
[2017-01-26] MEDS: OLANzapine TAB* 5 MG PO SCH (21:01)
[2017-01-26] MEDS: Atenolol TAB* 25 MG PO SCH (21:01)
[2017-01-26] MEDS: HYDROmorphone TAB* 2 MG PO PRN (22:24)
[2017-01-27] MEDS: Levothyroxine TAB* 125 MCG TAB PO SCH (06:12)
[2017-01-27] MEDS: NS 0.9% 1000 ML* 1,000 ML IV SCH (06:29)
[2017-01-27 06:48] LABS: Albumin 2.7 g/dL (3.2-5.2); BUN/Creatinine Ratio 14.5 (8-20); Calcium 8.1 mg/dL (8.6-10.3); EGFR African American 139.7 (>60); EGFR Non-African American 108.6 (>60); Globulin 2.6 g/dL (2-4); Potassium 2.9 mmol/L (3.5-5.0); Total Bilirubin 0.4 mg/dL (0.2-1.0); Total Protein 5.3 g/dL (6.4-8.9)
[2017-01-27] MEDS: HYDROmorphone TAB* 2 MG PO PRN ×2 (08:04→18:05)
[2017-01-27] MEDS: Potassium Chlor TAB* 20 MEQ TAB.ER PO SCH (09:38)
[2017-01-27] MEDS: Oxybutynin XL TAB* 5 MG PO SCH (09:38)
[2017-01-27] MEDS: Rivaroxaban TAB(*) 15 MG PO SCH ×2 (09:38→22:43)
[2017-01-27] MEDS: Methadone TAB* 5 MG PO SCH ×3 (09:38→22:42)
[2017-01-27] MEDS: Sulfamethox/Trimethoprim DS 800/160* TAB PO SCH ×2 (09:39→22:43)
[2017-01-27] MEDS: Aspirin EC Low Dose* 81 MG TAB.EC PO SCH (09:39)
[2017-01-27] MEDS: KCL 20 MEQ/100 ML IVPREMIX* 20 MEQ/100 ML BAG IV SCH ×2 (10:51→13:24)
[2017-01-27] MEDS: DULoxetine DR CAP* 20 MG CAP.DR PO SCH (22:43)
[2017-01-27] MEDS: OLANzapine TAB* 5 MG PO SCH (22:43)
[2017-01-27] MEDS: Atenolol TAB* 25 MG PO SCH (22:44)
[2017-01-28] MEDS: NS 0.9% 1000 ML* 1,000 ML IV SCH ×2 (02:32→18:21)
[2017-01-28 04:38] LABS: BUN/Creatinine Ratio 14.3 (8-20); Calcium 7.9 mg/dL (8.6-10.3); EGFR African American 136.9 (>60); EGFR Non-African American 106.4 (>60); Magnesium 1.4 mg/dL (1.9-2.7); Potassium 3.3 mmol/L (3.5-5.0)
[2017-01-28] MEDS: Levothyroxine TAB* 125 MCG TAB PO SCH (06:08)
[2017-01-28] MEDS: HYDROmorphone TAB* 2 MG PO PRN ×2 (06:08→15:30)
[2017-01-28] MEDS: Aspirin EC Low Dose* 81 MG TAB.EC PO SCH (09:10)
[2017-01-28] MEDS: Oxybutynin XL TAB* 5 MG PO SCH (09:10)
[2017-01-28] MEDS: Sulfamethox/Trimethoprim DS 800/160* TAB PO SCH (09:11)
[2017-01-28] MEDS: Methadone TAB* 5 MG PO SCH ×3 (09:11→20:59)
[2017-01-28] MEDS: Rivaroxaban TAB(*) 15 MG PO SCH ×2 (09:11→20:59)
[2017-01-28] MEDS: DULoxetine DR CAP* 20 MG CAP.DR PO SCH ×2 (09:12→20:59)
[2017-01-28] MEDS: Potassium Chlor TAB* 20 MEQ TAB.ER PO SCH (09:13)
[2017-01-28] MEDS: Ondansetron TAB* 4 MG PO PRN (09:13)
--- NOTE | 2017-01-28 10:09 | PN ---
Progress Note - Progress Note Date of Service: 01/28/17 SOAP: Subjective: []no better. cannot move without sever pain. eating very little. has had confusion with pain medication but not confused today. no fervers. bowls are moving. nausea is constant issue. Active Medications Generic Name Dose Route Start Last Admin Trade Name Freq PRN Reason Stop Dose Admin Aspirin 81 mg 01/20/17 09:00 01/28/17 09:10 Aspirin Ec Low Dose* PO 81 mg DAILY [facility] Administration Atenolol 25 mg 01/19/17 21:00 01/27/17 22:44 Tenormin Tab* PO 25 mg BEDTIME [facility] Administration Diphenoxylate HCl/Atropine 1 tab 01/20/17 11:04 01/26/17 08:32 Lomotil Tab* PO 1 tab Q4H PRN Administration DIARRHEA Duloxetine HCl 40 mg 01/27/17 21:00 01/28/17 09:12 Cymbalta Cap* PO 40 mg BID [facility] Administration Hydromorphone HCl 6 mg 01/26/17 21:36 01/28/17 06:08 Dilaudid Tab* PO 6 mg Q3H PRN Administration PAIN - MILD TO MODERATE Sodium Chloride 1,000 mls @ 125 mls/hr 01/19/17 15:30 01/28/17 02:32 Ns 0.9% 1000 Ml* IV 125 mls/hr PER RATE [facility] Administration Levothyroxine Sodium 125 mcg 01/20/17 06:00 01/28/17 06:08 Synthroid Tab* PO 125 mcg 0600 [facility] Administration Methadone HCl 15 mg 01/25/17 10:51 01/28/17 09:11 Dolophine Tab* PO 15 mg TID [facility] Administration Multi-Ingredient Mouthwash/Gargle 10 ml 01/19/17 15:10 Magic Mouth Was-Phuc/Maal/Lido* SWISH SPIT QID PRN MOUTH SORES/XEROSTOMIA Olanzapine 5 mg 01/19/17 21:00 01/27/17 22:43 Zyprexa Tab* PO 5 mg BEDTIME [facility] Administration Ondansetron HCl 4 mg 01/19/17 15:10 01/28/17 09:13 Zofran Tab* PO 4 mg Q4H PRN Administration NAUSEA Oxybutynin Chloride 15 mg 01/20/17 09:00 01/28/17 09:10 Ditropan Xl Tab* PO 15 mg DAILY [facility] Administration Pharmacy Profile Note 1 note 01/22/17 16:00 01/25/17 17:18 Scopolomine Patch Remove* PATCH OFF 1 note Q72H [facility] Administration Potassium Chloride 40 meq 01/26/17 10:26 01/28/17 09:13 Klor Con Er Tab* PO 40 meq DAILY [facility] Administration Rivaroxaban 15 mg 01/19/17 21:00 01/28/17 09:11 Xarelto(*) PO 15 mg BID [facility] Administration Scopolamine 1 patch 01/19/17 16:00 01/25/17 17:08 Transderm-Scop 1.5 Mg Patch* TRANSDERM 1 patch Q72H [facility] Administration Simethicone 80 mg 01/19/17 15:10 Mylicon* PO Q4H PRN GAS Tizanidine HCl 4 mg 01/20/17 11:07 01/20/17 11:34 Zanaflex Tab* PO 4 mg BID PRN Administration SPASMS - MUSCLE Objective: [] Vital Signs Temp Pulse Resp BP Pulse Ox 97.4 F 82 14 127/60 92 01/28/17 04:09 01/28/17 04:09 01/28/17 09:11 01/28/17 04:09 01/28/17 04:09 no distress HEENT with moist mucosa CTA RRR S1S2 Obese, has BS, diffuse tenderness. Assessment: []71 yo female with metastatic colon cancer admitted for recurrent uncontrolled severe abdominal pain r/t omental disease. During her admission we have attempted to adjust her pain meds and she has subsequently developed confusion. She is not eating and has limited mobility secondary to sever pain. Discussed progressive disease and quality of life. At this time she is not a candidate for additional therapy and we discussed hospice services. She lives alone but her son and daughter in law are involved in care. Plan: []1. Malignant pain r/t omental disease: stable at this time and with recent confusion. Methadone 15 tid and Dilaudid. 2. Confusion: Improved and likley second to medication. Did not tolerate MRI, will follow. 3. Completing treatment for UTI. 4. Stage IV colon cancer. Will consult hospice and talk to family. If improves over time can re-consider chemotherapy. time with chart 45 min.
[2017-01-28] MEDS: Scopolamine 1.5 mg* PATCH TRANSDERM SCH (15:23)
[2017-01-28] MEDS: Scopolomine PATCH Remove* 1 NOTE MISC PATCH OFF SCH (16:20)
[2017-01-28] MEDS: OLANzapine TAB* 5 MG PO SCH (20:59)
[2017-01-28] MEDS: Atenolol TAB* 25 MG PO SCH (20:59)
[2017-01-29] MEDS: NS 0.9% 1000 ML* 1,000 ML IV SCH ×2 (02:50→11:17)
[2017-01-29] MEDS: HYDROmorphone TAB* 2 MG PO PRN ×2 (03:32→09:42)
[2017-01-29] MEDS: Levothyroxine TAB* 125 MCG TAB PO SCH (05:25)
[2017-01-29] MEDS: Ondansetron TAB* 4 MG PO PRN (09:15)
[2017-01-29] MEDS: Oxybutynin XL TAB* 5 MG PO SCH (09:16)
[2017-01-29] MEDS: Methadone TAB* 5 MG PO SCH ×3 (09:16→21:17)
[2017-01-29] MEDS: Aspirin EC Low Dose* 81 MG TAB.EC PO SCH (09:17)
[2017-01-29] MEDS: Potassium Chlor TAB* 20 MEQ TAB.ER PO SCH (09:17)
[2017-01-29] MEDS: DULoxetine DR CAP* 20 MG CAP.DR PO SCH ×2 (09:17→21:23)
[2017-01-29] MEDS: Rivaroxaban TAB(*) 15 MG PO SCH ×2 (09:17→21:20)
--- NOTE | 2017-01-29 14:19 | RAD ---
Indication: Decreased lung sounds at the RIGHT lung base. Colorectal cancer with abdominal metastasis. Comparison: January 19, 2017 CT abdomen and November 21, 2016 CT chest. Technique: Sitting AP and lateral chest views. Report: Large body habitus limits image quality. Small bilateral pleural effusions and associated basilar compressive atelectasis. Inflammatory infiltrates at the lung bases not excluded. No focal pulmonary lesions visible. Negative for pneumothorax. Negative for cardiomegaly. Unremarkable central pulmonary vasculature. Tip of LEFT chest port at level of superior vena cava directed central. IMPRESSION: Small bilateral pleural effusions and associated basilar compressive atelectasis. Inflammatory infiltrates at the lung bases not excluded.
[2017-01-29] MEDS: Atenolol TAB* 25 MG PO SCH (21:20)
[2017-01-30] MEDS: Morphine INJ* 2 MG/ML 1 ML SYRINGE IV PRN ×2 (03:00→09:21)
[2017-01-30] MEDS: Levothyroxine TAB* 150 MCG TAB PO SCH (05:36)
[2017-01-30] MEDS: Rivaroxaban TAB(*) 15 MG PO SCH (09:23)
[2017-01-30] MEDS: Potassium Chlor TAB* 20 MEQ TAB.ER PO SCH (09:23)
[2017-01-30] MEDS: Oxybutynin XL TAB* 5 MG PO SCH (09:23)
[2017-01-30] MEDS: Aspirin EC Low Dose* 81 MG TAB.EC PO SCH (09:23)
[2017-01-30] MEDS ORDERED: Atropine 1% (ORAL/SL)* 15 ML BTL SL PRN (09:54)
[2017-01-30] MEDS ORDERED: HYDROmorphone* 1 MG/ML 1 ML SYR IV SLOW PU PRN (10:16)
[2017-01-30] MEDS: Methadone TAB* 5 MG PO SCH ×3 (10:39→21:28)
[2017-01-30] MEDS: DULoxetine DR CAP* 20 MG CAP.DR PO SCH (10:44)
[2017-01-30] MEDS: Morphine INJ* 4 MG/ML 1 ML SYRINGE IV PRN (12:24)
[2017-01-30 19:16] VITALS: BP 122/62
[2017-01-31] MEDS: Morphine INJ* 4 MG/ML 1 ML SYRINGE IV PRN ×2 (00:03→12:07)
[2017-01-31] MEDS: Levothyroxine TAB* 150 MCG TAB PO SCH (05:45)
[2017-01-31] MEDS: Methadone TAB* 5 MG PO SCH ×3 (08:02→21:05)
[2017-01-31] MEDS: Oxybutynin XL TAB* 5 MG PO SCH ×2 (08:02→11:50)
[2017-01-31] MEDS: Ondansetron INJ* 2 MG/ML VIAL IV PRN ×2 (08:15→22:17)
[2017-01-31] MEDS: Benzonatate CAP* 100 MG PO SCH ×4 (12:07→23:28)
[2017-01-31] MEDS: Scopolomine PATCH Remove* 1 NOTE MISC PATCH OFF SCH (16:53)
[2017-01-31] MEDS: Scopolamine 1.5 mg* PATCH TRANSDERM SCH (16:53)
[2017-02-01] MEDS: Levothyroxine TAB* 150 MCG TAB PO SCH (05:54)
[2017-02-01] MEDS: Benzonatate CAP* 100 MG PO SCH ×3 (07:29→20:27)
[2017-02-01] MEDS: Oxybutynin XL TAB* 5 MG PO SCH (07:29)
[2017-02-01] MEDS: Methadone TAB* 5 MG PO SCH (07:42)
[2017-02-01] MEDS: LORazepam INJ* 2 MG/ML 1 ML VIAL IV PUSH PRN (07:44)
--- NOTE | 2017-02-01 10:07 | PN ---
Subjective Date of Service: 02/01/17 Interval History: Pt is able to shake her head "no" to being in pain. She does not try to answer any other questions. Objective Active Medications: Atropine Sulfate (Atropine 1% (Oral/Sl)*) 2 drop SL Q2H PRN PRN Reason: DISCOMFORT Benzonatate (Tessalon Cap*) 100 mg PO BID [facility] Last Admin: 02/01/17 07:45 Dose: 100 mg Diphenoxylate HCl/Atropine (Lomotil Tab*) 1 tab PO Q4H PRN PRN Reason: DIARRHEA Last Admin: 01/26/17 08:32 Dose: 1 tab Heparin Sodium (Porcine) (Heparin Flush Port (Ivad)) 5 ml FLUSH DAILY [facility] PRN Reason: Protocol Last Admin: 02/01/17 07:29 Dose: 5 ml Hydromorphone HCl (Dilaudid Iv*) 1 mg IV SLOW PU Q4H PRN PRN Reason: PAIN - UNCONTROLLED Last Admin: 02/01/17 07:27 Dose: 1 mg Levothyroxine Sodium (Synthroid Tab*) 150 mcg PO 0600 [facility] Last Admin: 02/01/17 05:54 Dose: 150 mcg Lorazepam (Ativan Inj*) 1 mg IV PUSH Q2H PRN PRN Reason: CONFORT CARE Last Admin: 02/01/17 07:44 Dose: 1 mg Methadone HCl (Dolophine Tab*) 15 mg PO TID [facility] Last Admin: 02/01/17 07:42 Dose: 15 mg Morphine Sulfate (Morphine Inj (Syringe)*) 4 mg IV Q1H PRN PRN Reason: COMFORT/AIR HUNGER Last Admin: 01/31/17 12:07 Dose: 4 mg Ondansetron HCl (Zofran Tab*) 4 mg PO Q4H PRN PRN Reason: NAUSEA Last Admin: 01/29/17 09:15 Dose: 4 mg Ondansetron HCl (Zofran Inj*) 4 mg IV Q6H PRN PRN Reason: NAUSEA Last Admin: 01/31/17 22:17 Dose: 4 mg Oxybutynin Chloride (Ditropan Xl Tab*) 15 mg PO DAILY [facility] Last Admin: 02/01/17 07:29 Dose: Not Given Pharmacy Profile Note (Scopolomine Patch Remove*) 1 note PATCH OFF Q72H [facility] Last Admin: 01/31/17 16:53 Dose: 1 note Scopolamine (Transderm-Scop 1.5 Mg Patch*) 1 patch TRANSDERM Q72H [facility] Last Admin: 01/31/17 16:53 Dose: 1 patch Vital Signs 01/31/17 01/31/17 01/31/17 12:07 13:07 13:53 Respiratory 16 18 16 Rate 01/31/17 01/31/17 01/31/17 15:53 20:00 21:05 Respiratory 18 14 14 Rate 01/31/17 02/01/17 02/01/17 23:05 04:29 07:27 Respiratory 20 12 14 Rate 02/01/17 02/01/17 02/01/17 07:42 07:44 08:27 Respiratory 15 16 16 Rate 02/01/17 08:44 Respiratory 16 Rate Oxygen Devices in Use Now: Nasal Cannula Appearance: Elderly female lying on her R side in bed, awakens to voice and light touch, NAD Eyes: No Scleral Icterus Respiratory: Symmetrical Chest Expansion and Respiratory Effort, Clear to Auscultation Cardiovascular: NL Sounds; No Murmurs; No JVD, RRR Abdominal: NL Sounds; No Tenderness; No Distention Skin: No Rash or Ulcers Neurological: - - lethargic Result Diagrams: 01/25/17 06:05 01/28/17 04:10 Additional Lab and Data: Lab Results 01/19/17 01/19/17 01/19/17 Range/Units 10:12 10:12 10:12 WBC 9.2 (3.5-10.8) 10^3/ul RBC 3.98 L (4.0-5.4) 10^6/ul Hgb 12.3 (12.0-16.0) g/dl Hct 38 (35-47) % MCV 97 (80-97) fL MCH 31 (27-31) pg MCHC 32 (31-36) g/dl RDW 15 (10.5-15) % Plt Count 390 (150-450) 10^3/ul MPV 8 (7.4-10.4) um3 Neut % (Auto) 69.7 (38-83) % Lymph % (Auto) 16.1 L (25-47) % [place] % (Auto) 12.0 H (1-9) % Eos % (Auto) 1.0 (0-6) % Baso % (Auto) 1.2 (0-2) % Absolute Neuts (auto) 6.4 (1.5-7.7) 10^3/ul Absolute Lymphs (auto) 1.5 (1.0-4.8) 10^3/ul Absolute Monos (auto) 1.1 H (0-0.8) 10^3/ul Absolute Eos (auto) 0.1 (0-0.6) 10^3/ul Absolute Basos (auto) 0.1 (0-0.2) 10^3/ul Absolute Nucleated RBC 0 10^3/ul Nucleated RBC % 0 INR (Anticoag Therapy) 1.56 H (0.89-1.11) APTT 28.5 (26.0-36.3) seconds Sodium 140 (133-145) mmol/L Potassium 4.0 (3.5-5.0) mmol/L Chloride 108 (101-111) mmol/L Carbon Dioxide 22 (22-32) mmol/L Anion Gap 10 (2-11) mmol/L BUN 23 (6-24) mg/dL Creatinine 0.94 (0.51-0.95) mg/dL Est GFR ( Amer) 75.3 (>60) Est GFR (Non-Af Amer) 58.5 (>60) BUN/Creatinine Ratio 24.5 H (8-20) Glucose 105 H (70-100) mg/dL Lactic Acid (0.5-2.0) mmol/L Calcium 9.3 (8.6-10.3) mg/dL Total Bilirubin 0.50 (0.2-1.0) mg/dL AST 14 (13-39) U/L ALT 8 (7-52) U/L Alkaline Phosphatase 94 (34-104) U/L C-Reactive Protein 36.95 H (< 5.00) mg/L Total Protein 6.6 (6.4-8.9) g/dL Albumin 3.3 (3.2-5.2) g/dL Globulin 3.3 (2-4) g/dL Albumin/Globulin Ratio 1.0 (1-3) Lipase 19 (11.0-82.0) U/L Urine Test (Negative) 07/03/17 07/03/17 Range/Units 10:12 12:45 WBC (3.5-10.8) 10^3/ul RBC (4.0-5.4) 10^6/ul Hgb (12.0-16.0) g/dl Hct (35-47) % MCV (80-97) fL MCH (27-31) pg MCHC (31-36) g/dl RDW (10.5-15) % Plt Count (150-450) 10^3/ul MPV (7.4-10.4) um3 Neut % (Auto) (38-83) % Lymph % (Auto) (25-47) % [place] % (Auto) (1-9) % Eos % (Auto) (0-6) % Baso % (Auto) (0-2) % Absolute Neuts (auto) (1.5-7.7) 10^3/ul Absolute Lymphs (auto) (1.0-4.8) 10^3/ul Absolute Monos (auto) (0-0.8) 10^3/ul Absolute Eos (auto) (0-0.6) 10^3/ul Absolute Basos (auto) (0-0.2) 10^3/ul Absolute Nucleated RBC 10^3/ul Nucleated RBC % INR (Anticoag Therapy) (0.89-1.11) APTT (26.0-36.3) seconds Sodium (133-145) mmol/L Potassium (3.5-5.0) mmol/L Chloride (101-111) mmol/L Carbon Dioxide (22-32) mmol/L Anion Gap (2-11) mmol/L BUN (6-24) mg/dL Creatinine (0.51-0.95) mg/dL Est GFR ( Amer) (>60) Est GFR (Non-Af Amer) (>60) BUN/Creatinine Ratio (8-20) Glucose (70-100) mg/dL Lactic Acid 0.6 (0.5-2.0) mmol/L Calcium (8.6-10.3) mg/dL Total Bilirubin (0.2-1.0) mg/dL AST (13-39) U/L ALT (7-52) U/L Alkaline Phosphatase (34-104) U/L C-Reactive Protein (< 5.00) mg/L Total Protein (6.4-8.9) g/dL Albumin (3.2-5.2) g/dL Globulin (2-4) g/dL Albumin/Globulin Ratio (1-3) Lipase (11.0-82.0) U/L Urine Test Negative (Negative) Microbiology and Other Data: Microbiology 01/22/17 19:30 Urine Culture - Final Urine Escherichia Coli Assess/Plan/Problems-Billing Ms Gordillo is a 71 yo F who has a h/o metastatic colon cancer with omental disease who was admitted on 01/19/17 with abdominal pain, nausea and vomiting. She has subsequently been transitioned to comfort care due to rapid decline. 1. Metastatic colon cancer: will continue current regimen. She has appeared comfortable today per her visitors. The patient herself denies any pain at this time. Continue comfort care. Possible hospice. 2. DVT-P: none as pt is on comfort care 3. DNR
[2017-02-01] MEDS: Morphine INJ* 4 MG/ML 1 ML SYRINGE IV PRN (20:27)
[2017-02-02] MEDS: Levothyroxine TAB* 150 MCG TAB PO SCH (05:07)
[2017-02-02] MEDS: Morphine INJ* 4 MG/ML 1 ML SYRINGE IV PRN ×5 (05:08→18:13)
[2017-02-02] MEDS: Benzonatate CAP* 100 MG PO SCH ×2 (09:26→22:05)
[2017-02-02] MEDS: Oxybutynin XL TAB* 5 MG PO SCH (09:26)
[2017-02-02] MEDS ORDERED: HYDROmorphone TAB* 4 MG PO PRN (10:22)
[2017-02-02] MEDS: Morphine TAB Extended Release (*) 15 MG TAB.ER PO SCH ×2 (12:07→13:13)
[2017-02-02] MEDS: Morphine ORAL CONCENTRATE* 5 MG/0.25 ML ORAL.SYRIN PO PRN (13:24)
--- NOTE | 2017-02-02 15:02 | PN ---
Progress Note - Progress Note Date of Service: 02/02/17 Note: Palliative Care follow up: Patient is now more alert and awake. Talking and interactive. On room air. Son and daughter at the bedside. Patient still with abdominal pain, just received morphine. Had small sips of water today and a small taste of a cinnamon roll. Is not interested in eating or drinking. Discussed at length options for discharge. Family do not feel the can financially afford 24/hr care at home. Hospice residence bed has been offered to them and the patient has accepted to be transferred there tomorrow.
[2017-02-02] MEDS: Ondansetron INJ* 2 MG/ML VIAL IV PRN (16:29)
[2017-02-03] MEDS: Morphine TAB Extended Release (*) 15 MG TAB.ER PO SCH ×2 (00:20→09:40)
[2017-02-03] MEDS: Levothyroxine TAB* 150 MCG TAB PO SCH (05:48)
[2017-02-03] MEDS: Benzonatate CAP* 100 MG PO SCH (09:41)
[2017-02-03] MEDS: LORazepam INJ* 2 MG/ML 1 ML VIAL IV PUSH PRN (09:41)
[2017-02-03] MEDS: Oxybutynin XL TAB* 5 MG PO SCH (09:41)
[2017-02-03] MEDS: Morphine ORAL CONCENTRATE* 5 MG/0.25 ML ORAL.SYRIN PO PRN (09:42)
[2017-02-03] MEDS: Morphine INJ* 4 MG/ML 1 ML SYRINGE IV PRN (10:00)
--- NOTE | 2017-02-03 11:53 | DS ---
DISCHARGE SUMMARY: DATE OF ADMISSION: 01/19/2017. DATE OF DISCHARGE: 02/03/2017. ATTENDING PHYSICIAN: Dr. Vivien Yao* (dictated by ELIZABETH Jones). PRINCIPAL DIAGNOSES: Include, 1. Abdominal pain secondary to metastatic colorectal cancer. 2. Respiratory failure secondary to hypoxia. 3. Asymptomatic bacteriuria otherwise known as urinary tract infection. 4. History of coronary artery disease. 5. History of chronic pain. 6. Colorectal adenocarcinoma. 7. Elevated troponin. 8. History of acquired pneumonia recently. 9. History of hypertension. 10. History of hypothyroidism. 11. History of microcytic anemia. 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 13. Recurrent carcinoma of the colon. 14. Small-bowel obstruction. 15. History of severe sepsis. HISTORY OF PRESENT ILLNESS: Included chief complaint of abdominal pain. The patient was admitted by Dr. Vivien Yao. Briefly, the patient had a history of metastatic colorectal cancer and was on palliative pembrolizumab and was presented to the emergency room with abdominal pain, nausea and vomiting. She has had severe admissions prior to this for abdominal pain in the recent past. She had relapsed from FOLFOX, which was adjuvant two weeks after with omental caking and had several additional regimens throughout the course of her colon cancer. She had been recently placed on fentanyl patch, which was up titrated to fentanyl patch of 300 mcg and Dilaudid 6 mg every six hours and her neuropathic medications were increased as well to include Cymbalta. The patient had significant obstipation as well secondary to her narcotic use and was placed on naloxegol type medication. She became nauseous but did not vomit and was placed in the hospital for intractable pain originally. After several medical trials, the patient had been trialed on methadone as well during her hospital stay. Of note she did get an abdominal CT scan, which did show progression of her cancer despite the pembrolizumab and had also developed some significant effusion throughout the course of her stay, which in the differential could include iatrogenic from her narcotics could be encephalopathy and had additional weakness and a near fall. PT had followed along during her hospital stay. In addition, the patient on 01/26/17 had increasing confusion but improved pain and by 01/29/17 had become significantly more confused. Hospice had seen her on the next day for a consultation as palliative measures were recommended by Dr. Cornell. The patient on 01/30/17 was near unresponsive requiring great deals of oxygen and Dr. Glass had talked to the family regarding hospice referral and patient was made comfort care secondary to her decline that day. Over the weekend, she did improve as a lot of her medications were oral and she was only placed on IV medication for her pain and she did improve slightly. However, not enough to rescind any kind of palliative measures and both the family and hospice felt it was in her best interest to be transferred to the hospice residence for her end of life care. During her hospital stay, she was made DNR/DNI status and will continue to remain that and she will be transferred over to the hospice residence today pending her transportation. Her vital signs were stable and she was afebrile on the day of her discharge, her urinary tract infection was completely treated with antibiotics. ELIZABETH JONES [id number]/[facility] #: [id number] [place]
== END 2017-02-03 11:06 | disposition hospice, inpatient (51) | DRG 947 ==
LOC: ED 09:30 → MED 15:03
PROVIDERS: ADMIT Internal Medicine Hematology & Oncology; ATTEND Internal Medicine Hematology & Oncology
DX: G89.3 Neoplasm related pain (acute) (chronic) (principal); J96.91 Respiratory failure, unspecified with hypoxia; K56.60 Unspecified intestinal obstruction; G93.40 Encephalopathy, unspecified; C78.89 Secondary malignant neoplasm of other digestive organs; C78.6 Secondary malignant neoplasm of retroperitoneum and peritoneum; N39.0 Urinary tract infection, site not specified; C19 Malignant neoplasm of rectosigmoid junction; B96.20 Unspecified Escherichia coli [E. coli] as the cause of diseases classified elsewhere; I10 Essential (primary) hypertension; E78.5 Hyperlipidemia, unspecified; K21.9 Gastro-esophageal reflux disease without esophagitis; I25.10 Atherosclerotic heart disease of native coronary artery without angina pectoris; Z66 Do not resuscitate; E78.00 Pure hypercholesterolemia, unspecified; R40.2412 Glasgow coma scale score 13-15, at arrival to emergency department; R53.1 Weakness; E03.9 Hypothyroidism, unspecified; R33.9 Retention of urine, unspecified; R11.0 Nausea; Z51.5 Encounter for palliative care; R74.8 Abnormal levels of other serum enzymes; K59.03 Drug induced constipation; T40.605A Adverse effect of unspecified narcotics, initial encounter; I25.2 Old myocardial infarction; Z95.1 Presence of aortocoronary bypass graft; Z92.21 Personal history of antineoplastic chemotherapy; Z86.718 Personal history of other venous thrombosis and embolism; Z90.49 Acquired absence of other specified parts of digestive tract; Z80.49 Family history of malignant neoplasm of other genital organs; Z91.048 Other nonmedicinal substance allergy status; Z87.01 Personal history of pneumonia (recurrent); Z95.2 Presence of prosthetic heart valve; Z82.49 Family history of ischemic heart disease and other diseases of the circulatory system; Z87.891 Personal history of nicotine dependence
CPT/HCPCS: 36415; 70030; 71020; 74177; 80048; 80053; 81003; 81015; 81025; 82565; 83605; 83690; 83735; 84443; 85025; 85610; 85730; 86140; 87077; 87086; 87186; 99222; 99232; 99233; 99239; A9270-GY; J1170; J1642; J2060; J2270; J2405; J3480; Q9967